=== PATIENT | female | born 1970 | race Caucasian/White ===

== ENCOUNTER 2016-08-05 15:00 | Inpatient (IN) ==
--- NOTE | 2016-08-05 15:11 | Emergency Department Note ---
Disposition Clinical Impression: CHF exacerbation Qualifiers: Congestive heart failure type: unspecified congestive heart failure type Qualified Code(s): I50.9 - Heart failure, unspecified Disposition: Admitted As Inpatient Condition: Fair Forms: ED Satisfaction Letter SOB HPI - General Chief Complaint: ED Shortness of Breath/Dyspnea Stated Complaint: rich Time Seen by Provider: 08/05/16 15:07 Source: patient Limitations: no limitations Nursing Notes Reviewed: Yes Vital Signs Reviewed: Yes - History of Present Illness Patient is here for evaluation of shortness of breath. The manager coding at [facility] called prior to the patient's arrival stating that she was on her way. Patient has a history of diastolic CHF and diabetes, patient is morbidly obese with multiple PEs and DVTs in the past. The patient is currently on IV Lasix 80 mg 3 times a day and metolazone 2 times per week. The patient was recently changed from 120 mg twice a day. medical assembler states that after our workup she is able to be admitted and treated our facility with the recommendation to revert to 120 mg of IV Lasix and metolazone. She was recently transferred and evaluated at [facility] last week for possible PE which was negative. Patient is currently on Xeralto and has a [place] filter in place. Patient describes shortness of breath started on Saturday and has been progressively worsen nature. Patient is not acutely short of breath sitting in bed however she becomes acutely short of breath when she exerts herself. Patient described does describe a left-sided sharp pain with exertion. She has had this multiple times in the past with her heart failure acting out. - Related Data Home Medications Medication Instructions Recorded Confirmed ALPRAZolam [Xanax 0.5 MG Tablet] 0.5 mg PO BID PRN 01/20/16 08/05/16 Aripiprazole [Abilify] 20 mg PO DAILY 01/20/16 08/05/16 Aspirin 81 mg PO HS 01/20/16 08/05/16 Carvedilol 12.5 mg PO Q12H 01/20/16 08/05/16 Docusate [Colace] 100 mg PO BID 01/20/16 08/05/16 Furosemide 80 mg IV TID 01/20/16 08/05/16 HYDROcodone/Acet 10/325 mg [[place] 1 tab PO Q6H PRN 01/20/16 08/05/16 10-325 mg] Metolazone [Zaroxolyn] 5 mg PO MOTH 01/20/16 08/05/16 Nitroglycerin [Nitrostat] 0.4 mg SL Q5M PRN 01/20/16 08/05/16 Nystatin POWDER [Nystop] 1 appl TP BID 01/20/16 08/05/16 OXcarbazepine [Oxcarbazepine] 600 mg PO BID 01/20/16 08/05/16 Ondansetron HCl 4 mg PO Q8H PRN 01/20/16 08/05/16 Polyethylene Glycol 3350 17 gm PO DAILY #0 01/20/16 08/05/16 [Smoothlax] Potassium Chloride [K-Tab ER] 20 meq PO BIDWM 01/20/16 08/05/16 Rivaroxaban [Xarelto] 20 mg PO QPM 01/20/16 08/05/16 hydrALAZINE [HydrALAZINE] 25 mg PO TID 01/20/16 08/05/16 Atorvastatin Calcium [Lipitor] 80 mg PO HS 08/05/16 08/05/16 Benztropine [Cogentin] 1 mg PO HS 08/05/16 08/05/16 Dicyclomine [Bentyl] 20 - 40 mg PO QID 08/05/16 08/05/16 Esomeprazole Magnesium [Nexium] 20 mg PO QAM 08/05/16 08/05/16 Exenatide Microspheres [Bydureon 2 mg SQ QWEEK 08/05/16 08/05/16 Pen] Ferrous Gluconate 324 mg PO DAILY 08/05/16 08/05/16 Guaifenesin [Mucinex] 600 mg PO BID 08/05/16 08/05/16 Insulin Regular U-500 [HumuLIN R 45 unit SQ QPM 08/05/16 08/05/16 U-500] Insulin Regular U-500 [HumuLIN R 70 unit SQ 1200 08/05/16 08/05/16 U-500] Insulin Regular U-500 [HumuLIN R 80 units SQ QAM 08/05/16 08/05/16 U-500] Isosorbide DInitrate [Isosorbide 20 mg PO TID 08/05/16 08/05/16 Dinitrate] Oxybutynin Chloride [Ditropan Xl] 15 mg PO DAILY 08/05/16 08/05/16 Spironolactone [Aldactone] 50 mg PO DAILY 08/05/16 08/05/16 Trazodone HCl 400 mg PO HS 08/05/16 08/05/16 Allergies Allergy/AdvReac Type Severity Reaction Status Date / Time Amoxicillin [From Augmentin] Allergy Hives Verified 06/21/16 14:38 clavulanic acid Allergy Hives Verified 06/21/16 14:38 [From Augmentin] codeine Allergy Swelling Verified 06/21/16 14:38 of Lip/Tongue/Throat levofloxacin [From Levaquin] Allergy Hives Verified 06/21/16 14:38 silver sulfadiazine Allergy Itching Verified 06/21/16 14:38 Sulfa (Sulfonamide Allergy Hives Verified 06/21/16 14:38 Antibiotics) tramadol [From Ultram] Allergy Swelling Verified 06/21/16 14:38 of Lip/Tongue/Throat All systems ED: reviewed and negative except as stated. 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 WATER WASTEWATER history: Reports: non-contributory - Social History Smoking Status: Never smoker Smokeless Tobacco Status: No Alcohol use: Reports: none Drug use: Reports: none Physical Exam - General Limitations: no limitations General appearance: alert, in no apparent distress - Head Head exam: atraumatic, normocephalic - Eye Eye exam: Present: normal appearance, PERRL - ENT ENT exam: normal exam - Neck Neck exam: Present: normal inspection - Chest Chest inspection: Present: normal inspection - Respiratory Respiratory exam: Absent: normal lung sounds bilaterally (Diminished bilaterally ), respiratory distress - Cardiovascular Cardiovascular exam: Present: regular rate, normal rhythm - Abdominal Exam Abdominal exam: Present: soft, Non-Tender - Extremities Exam Extremities exam: Present: other (Significantly swollen with chronic changes.) - Neurological Exam Neurological exam: Present: alert, oriented X3 - Psychiatric Psychiatric exam: Present: normal affect, normal mood Course - Reevaluation(s) Reevaluation #1: Patient continues to be in no acute distress while resting in the bed. - Consultations Consultation #1: Discussed with Dr. Doss. Patient accepted for admission for further diuresis. Vital Signs Temperature 97.4 F L 08/05/16 15:01 Pulse Rate 71 08/05/16 15:01 Respiratory Rate 22 08/05/16 15:01 Blood Pressure 129/67 08/05/16 15:01 O2 Sat by Pulse Oximetry 100 08/05/16 15:01 Temperature 97.4 F L 08/05/16 15:01 Pulse Rate 71 08/05/16 15:01 Respiratory Rate 22 08/05/16 15:01 Blood Pressure 129/67 08/05/16 15:01 O2 Sat by Pulse Oximetry 100 08/05/16 15:07 Oxygen Delivery Oxygen Delivery Nasal Cannula Shortness of Breath/Dyspnea - Medical Records Medical records reviewed: Yes I reviewed the patient's medical records. - Lab Data Lab results reviewed: Yes I reviewed the patient's lab results. Result diagrams: 08/05/16 15:45 08/05/16 15:45 Lab Results 08/05/16 08/05/16 08/05/16 Range/Units 15:45 15:45 15:45 WBC 10.0 (4.3-11.1) K/mcL RBC 3.71 L (3.82-4.97) M/mcL Hgb 8.8 L (11.5-15.4) g/dL Hct 29.9 L (35.3-44.9) % MCV 80.6 L (83.0-100.0) fL MCH 23.7 L (28.0-33.3) pg MCHC 29.4 L (31.6-35.5) g/dL RDW 17.6 H (11.5-14.5) % Plt Count 230 (140-400) K/mcL MPV 10.8 (9.4-12.4) fL Immature Gran % 0.3 (0-4) % Seg Neutrophils % 74.6 % Lymphocytes % 18.2 % Monocytes % 4.6 % Eosinophils % 2.0 % Basophils % 0.3 % Neutrophils # 7.5 (1.6-8.9) K/mcL Lymphocytes # 1.8 (0.6-4.6) K/mcL Monocytes # 0.5 (0.0-1.3) K/mcL Eosinophils # 0.2 (0.0-0.6) K/mcL Basophils # 0.0 (0.0-0.2) K/mcL Platelet Estimate Normal (Normal) Polychromasia 1+ A (Not Present) Hypochromasia Present A (Not Present) Sodium 141 (136-145) mEq/L Potassium 3.5 (3.5-4.5) mEq/L Chloride 93 L (98-109) mEq/L Carbon Dioxide 36 H (19-29) mEq/L BUN 25 H (7-20) mg/dL Creatinine 1.06 (0.57-1.11) mg/dL Est GFR ( Amer) > 60 (> 60) Est GFR (Non-Af Amer) 56 L (> 60) BUN/Creatinine Ratio 24 (6-26) Glucose 153 H (70-99) mg/dL Calculated Osmolality 299 (280-300) Calcium 9.0 (8.6-10.8) mg/dL Troponin I 0.00 (0-0.03) ng/mL B-Natriuretic Peptide (0-100) pg/mL 08/05/16 Range/Units 15:45 WBC (4.3-11.1) K/mcL RBC (3.82-4.97) M/mcL Hgb (11.5-15.4) g/dL Hct (35.3-44.9) % MCV (83.0-100.0) fL MCH (28.0-33.3) pg MCHC (31.6-35.5) g/dL RDW (11.5-14.5) % Plt Count (140-400) K/mcL MPV (9.4-12.4) fL Immature Gran % (0-4) % Seg Neutrophils % % Lymphocytes % % Monocytes % % Eosinophils % % Basophils % % Neutrophils # (1.6-8.9) K/mcL Lymphocytes # (0.6-4.6) K/mcL Monocytes # (0.0-1.3) K/mcL Eosinophils # (0.0-0.6) K/mcL Basophils # (0.0-0.2) K/mcL Platelet Estimate (Normal) Polychromasia (Not Present) Hypochromasia (Not Present) Sodium (136-145) mEq/L Potassium (3.5-4.5) mEq/L Chloride (98-109) mEq/L Carbon Dioxide (19-29) mEq/L BUN (7-20) mg/dL Creatinine (0.57-1.11) mg/dL Est GFR ( Amer) (> 60) Est GFR (Non-Af Amer) (> 60) BUN/Creatinine Ratio (6-26) Glucose (70-99) mg/dL Calculated Osmolality (280-300) Calcium (8.6-10.8) mg/dL Troponin I (0-0.03) ng/mL B-Natriuretic Peptide 125 H (0-100) pg/mL - Radiology Data Radiology results reviewed: Yes I reviewed the patient's radiology results. - EKG Data EKG attestation: Yes I reviewed and interpreted this EKG. EKG results narrative: EKG shows sinus rhythm with ventricular rate 70 bpm. CA interval 162. QRS 89. QTC 438. Patient has no significant ST elevations or depressions. Patient has nonspecific T-wave changes. EKG is consistent with previous EKG of 07/12/16.
--- NOTE | 2016-08-05 15:16 | Emergency Department Note ---
START Narrative - START START: I examined this patient and my medical decision-making was reviewed with the BARREL DEDENTING MACHINE OPERATOR/PA/Advanced Practice Nurse/Resident Physician. I agree with the documented findings, disposition and treatment plan as described except to the extent set forth below. ED attending note: Patient seen with emergency medicine resident Dr Fuentes. We independently evaluated the patient. We independently had [id number] contact with the patient. Please see a copy of his note for details of the history and physical, evaluation, management and disposition of this emergency Department patient. Briefly: A 45-year-old female by EMS from home for increasing shortness of breath and chest discomfort. Transferred about 2 weeks ago from [place] to the [facility] for rule out PE which was negative. She has a history of PEs breakthrough P's she is currently on swell so and has a [place] filter. She also has fairly significant congestive heart failure and she is on IV Lasix at home use to be 120 mg twice a day now 80 mg 3 times a day. Had a phone conversation with the plumbing designer who manages this patient through the heart failure clinic at the [facility]. They recommended after they spoke with the patient on the phone earlier today that this sounds like fluid retention and CHF exacerbation which probably prior IV Lasix dose at 120 mg twice daily. Patient has EKG which shows no acute ischemic changes screening labs and chest x-ray are pending with admission and anticipated an IV Lasix administration as well. Provided 40 minutes critical care services this patient disposition pending.
[2016-08-05 15:59] LABS: Immature Granulocytes % 0.3 % (0-4); Mean Corpuscular Volume 80.6 fL (83.0-100.0)
[2016-08-05 16:01] LABS: Basophils % 0.3 %; Eosinophils # 0.2 K/mcL (0.0-0.6); Hematocrit 29.9 % (35.3-44.9); Hemoglobin 8.8 g/dL (11.5-15.4); Lymphocytes # 1.8 K/mcL (0.6-4.6); Lymphocytes % 18.2 %; Mean Corpuscular HGB Conc 29.4 g/dL (31.6-35.5); Mean Corpuscular Hemoglobin 23.7 pg (28.0-33.3); Mean Platelet Volume 10.8 fL (9.4-12.4); Monocytes # 0.5 K/mcL (0.0-1.3); Monocytes % 4.6 %; Neutrophils # 7.5 K/mcL (1.6-8.9); Platelet Count 230 K/mcL (140-400); Red Blood Count 3.71 M/mcL (3.82-4.97); Red Cell Distribution Width 17.6 % (11.5-14.5); Segmented Neutrophils % 74.6 %
[2016-08-05 16:13] LABS: BUN/Creatinine Ratio 24 (6-26); Blood Urea Nitrogen 25 mg/dL (7-20); Carbon Dioxide 36 mEq/L (19-29); Chloride 93 mEq/L (98-109); Glucose 153 mg/dL (70-99); Osmolality,Calculated 299 (280-300); Potassium 3.5 mEq/L (3.5-4.5); Sodium 141 mEq/L (136-145); eGFR For African Americans > 60 (> 60); eGFR For Non-African Americans 56 (> 60)
[2016-08-05 16:27] LABS: Hypochromasia Present (Not Present); Platelet Estimate Normal (Normal); Polychromasia 1+ (Not Present)
[2016-08-05] MEDS ORDERED: Furosemide 20 MG/2 ML VIAL IVP ONE (16:58)
[2016-08-05] MEDS ORDERED: Naloxone 0.4 MG/ML INJ IVP PRN (18:20)
[2016-08-05] MEDS ORDERED: ALPRAZolam 0.5 MG TABLET PO PRN (18:34)
[2016-08-05] MEDS ORDERED: Nitroglycerin 0.4 MG TAB.SUBL SL PRN (18:39)
--- NOTE | 2016-08-05 19:00 | Internal Med History&Physical ---
Date of Encounter: 08/05/16 Time of Encounter: 17:00 Assessment and Plan (1) CHF exacerbation Current visit: Yes Status: Acute 1 patient has a history of diastolic heart failure she is being followed by cardiology at [facility]. She had recent change in medications Lasix decreased down to 80 mg 3 times a day. [facility] cardiology suggest increasing Lasix 120 mg twice a day and continuing the [place]. We will continue with recommendations diurese patient overnight 2 monitor intake and output 3 continue with [place] catheter patient has chronic catheter 4 1500 mL fluid restriction 5 sodium diet 6 continuous cardiac monitoring Qualifiers: Congestive heart failure type: diastolic Qualified Code(s): I50.33 - Acute on chronic diastolic (congestive) heart failure (2) HTN (hypertension) Current visit: No Status: Chronic 1 we will continue with home medications goal is to maintain systolic less than 140 2 low sodium diet Qualifiers: Hypertension type: essential hypertension Qualified Code(s): I10 - Essential (primary) hypertension (3) Personal history of DVT (deep vein thrombosis) Current visit: No Status: Chronic Xarelto, [place] filter (4) DVT prophylaxis Current visit: No Status: Acute 1 patient is on xarelto and has a faye filter (5) Diabetes mellitus type 1 Current visit: Yes Status: Chronic 1 Accu-Cheks before meals at bedtime will continue with Humulin R U 500 home dose 2 diabetic diet Qualifiers: Diabetes mellitus complication status: with kidney complications Diabetes mellitus complication detail: with chronic kidney disease Chronic kidney disease stage: stage 3 (moderate) Qualified Code(s): E10.22 - Type 1 diabetes mellitus with diabetic chronic kidney disease; N18.3 - Chronic kidney disease, stage 3 (moderate) Internal Medicine - H&P: HPI Chief complaint: SOB Admitted From: Emergency Dept Plans for Post Hospital Care: Home History of present illness: Ms. Hameed is a 45 year old female patient has extensive medical history including diastolic heart failure diabetes and morbid obesity multiple PEs and DVTs in the past patient is being followed at [facility] cardiology. she was recently transferred and evaluated at [facility] last week for possible PE which was negative patient is currently owns a relative and has a [place] filter in place. She was discharged on the at that time her Lasix was decreased down to 80mg 3 times a day day from 120 IV Lasix twice a day. On Wednesday she began to experience shortness of breath which worsens with exertion as well as left- sided sharp pain. This continued throughout the week as well as a cough and edema. She did notify her chemical equipment repairer at [facility] who advised her if symptoms continued, to report to the ER . Her symptoms continued she notify her chemical equipment repairer who advised her to go to the ER. According to ED records manager foreign at [facility] speak with ER physician and stated patient is able to be managed at our facility and recommends 120 IV Lasix twice a day and continue metolazone. Chest x-ray did show some cardiomegaly and mild pulmonary vascular congestion. Lab work was unremarkable she was admitted for further diuresis. Presently patient denies any chest pain or shortness of breath she does not appear to be respiratory distress. Her lung sounds are diminished throughout heart sounds S1-S2 regular with no clicks rubs gallops or murmurs noted. She is morbidly obese however she does have some dependent edema located in her back as well as her lower extremities. She is hemodynamically stable this time IV this case with Dr. Doss who agrees with plan. Past Med Surg Social Fam HX - Past Medical History Medical history: asthma, CHF, COPD, DVT, diabetes, hyperlipidemia, hypertension , peripheral artery disease, pulmonary embolus, renal disease, other Psychiatric history: anxiety, bipolar, depression - Past Surgical History Surgical History: cholecystectomy, other - Social History Smoking Status: Never smoker Smokeless Tobacco Status: No Alcohol use: none Drug use: none - Family History Mother Living Status: Hx Family Cardiac Disorders: Yes Hx Family Endocrine Disorder: Yes Father Living Status: Still Living Hx Family Cardiac Disorders: Yes Hx Family Endocrine Disorder: Yes (DM 2) Internal Medicine - H&P: Meds ALPRAZolam [Xanax 0.5 MG Tablet] 0.5 mg PO BID PRN 01/20/16 [History] Aripiprazole [Abilify] 20 mg PO DAILY 01/20/16 [History] Aspirin 81 mg PO HS 01/20/16 [History] Carvedilol 12.5 mg PO Q12H 01/20/16 [History] Docusate [Colace] 100 mg PO BID 01/20/16 [History] Furosemide 80 mg IV TID 01/20/16 [History] HYDROcodone/Acet 10/325 mg [[place] 10-325 mg] 1 tab PO Q6H PRN 01/20/16 [History] Metolazone [Zaroxolyn] 5 mg PO MOTH 01/20/16 [History] Nitroglycerin [Nitrostat] 0.4 mg SL Q5M PRN 01/20/16 [History] Nystatin POWDER [Nystop] 1 appl TP BID 01/20/16 [History] OXcarbazepine [Oxcarbazepine] 600 mg PO BID 01/20/16 [History] Ondansetron HCl 4 mg PO Q8H PRN 01/20/16 [History] Polyethylene Glycol 3350 [Smoothlax] 17 gm PO DAILY #0 01/20/16 [History] Potassium Chloride [K-Tab ER] 20 meq PO BIDWM 01/20/16 [History] Rivaroxaban [Xarelto] 20 mg PO QPM 01/20/16 [History] hydrALAZINE [HydrALAZINE] 25 mg PO TID 01/20/16 [History] Atorvastatin Calcium [Lipitor] 80 mg PO HS 08/05/16 [History] Benztropine [Cogentin] 1 mg PO HS 08/05/16 [History] Dicyclomine [Bentyl] 20 - 40 mg PO QID 08/05/16 [History] Esomeprazole Magnesium [Nexium] 20 mg PO QAM 08/05/16 [History] Exenatide Microspheres [Bydureon Pen] 2 mg SQ QWEEK 08/05/16 [History] Ferrous Gluconate 324 mg PO DAILY 08/05/16 [History] Guaifenesin [Mucinex] 600 mg PO BID 08/05/16 [History] Insulin Regular U-500 [HumuLIN R U-500] 45 unit SQ QPM 08/05/16 [History] Insulin Regular U-500 [HumuLIN R U-500] 70 unit SQ 1200 08/05/16 [History] Insulin Regular U-500 [HumuLIN R U-500] 80 units SQ QAM 08/05/16 [History] Isosorbide DInitrate [Isosorbide Dinitrate] 20 mg PO TID 08/05/16 [History] Oxybutynin Chloride [Ditropan Xl] 15 mg PO DAILY 08/05/16 [History] Spironolactone [Aldactone] 50 mg PO DAILY 08/05/16 [History] Trazodone HCl 400 mg PO HS 08/05/16 [History] Allergies Amoxicillin [From Augmentin] Allergy (Verified 06/21/16 14:38) Hives clavulanic acid [From Augmentin] Allergy (Verified 06/21/16 14:38) Hives codeine Allergy (Verified 06/21/16 14:38) Swelling of Lip/Tongue/Throat levofloxacin [From Levaquin] Allergy (Verified 06/21/16 14:38) Hives silver sulfadiazine Allergy (Verified 06/21/16 14:38) Itching Sulfa (Sulfonamide Antibiotics) Allergy (Verified 06/21/16 14:38) Hives tramadol [From Ultram] Allergy (Verified 06/21/16 14:38) Swelling of Lip/Tongue/Throat All Systems PM: A 10-system review of systems was performed and is negative for pertinent findings except as documented above in the HPI. - Constitutional Constitutional: no chills, no fever(s), no night sweats - EENT Eyes: no change in vision, no discharge, no pain, no photophobia - Cardiovascular Cardiovascular ROS IM: chest pain, dyspnea, dyspnea on exertion, edema - Respiratory Respiratory: cough, dyspnea on exertion, no dyspnea, no wheezing, no excessive phlegm production - Gastrointestinal Gastrointestinal: no abdominal pain, no diarrhea, no hematemesis, no hematochezia, no melena, no nausea, no vomiting - Genitourinary Genitourinary: no change in urinary stream, no dysuria, no flank pain, no hematuria - Musculoskeletal Musculoskeletal ROS IM: no numbness, no tingling - Integumentary Integumentary IM: no rash, no unusual bruising - Neurological Neurological ROS: no confusion, no convulsions, no focal weakness, no numbness, no tingling, no tremor(s) - Constitutional Vitals: Temp Pulse Resp BP Pulse Ox 97.4 F L 89 20 126/80 100 08/05/16 15:01 08/05/16 17:22 08/05/16 17:46 08/05/16 17:46 08/05/16 17:22 General appearance: Present: A&O X 3, morbidly obese - Head Head exam: Present: atraumatic, normocephalic - Eye Eye exam: Present: PERRL, conjuntiva pink, sclera anicteric Pupils: Present: PERRL - Neck Neck exam general surgery: Present: supple, trachea midline. Absent: lymphadenopathy - Respiratory Respiratory exam: Present: decreased breath sounds, CTAB. Absent: accessory muscle use, rales, rhonchi, wheezes - Cardiovascular Cardiovascular exam: Present: RRR, +S1, +S2. Absent: diastolic murmur, gallop, rubs, systolic murmur - GI/Abdominal GI/Abdominal exam: Present: normal bowel sounds, soft, no peritoneal signs. Absent: distended, tenderness - Extremities Exam Extremities exam: Present: pedal edema, warm, radial pulses palpable and symetrical. Absent: calf tenderness, cyanotic - Neurological Exam Neurological exam: Present: CN II-XII intact, oriented X3, no focal deficits. Absent: pronater drift, facial droop, speech deficit - Skin Skin exam: Present: dry, intact Internal Med - H&P Results - Labs CBC & Chem 7: 08/05/16 15:45 08/05/16 15:45 - EKG Data EKG shows normal: sinus rhythm - EKG Data Prior EKG available for review: yes When compared to previous EKG: there are significant changes - Diagnostic Studies Chest x-ray Additional comments: Chest X-Ray 08/05/16 15:07 IMPRESSION: Cardiomegaly with mild venous congestion. D/ / Barry Taveras MD / Barry Taveras MD Interpreting Provider: Barry Taveras MD
[2016-08-05] MEDS: Aspirin 81 MG TAB.CHEW PO SCH (21:37)
[2016-08-05] MEDS: hydrALAZINE 25 MG TABLET PO SCH (21:37)
[2016-08-05] MEDS: OXcarbazepine 150 MG TABLET PO SCH (21:38)
[2016-08-05] MEDS: traZODone 50 MG TABLET PO SCH (23:05)
[2016-08-05] MEDS: *HR* HYDROcodone/Acet 10/325 mg TABLET PO PRN (23:12)
[2016-08-06 03:50] LABS: Calcium 8.8 mg/dL (8.6-10.8); Magnesium 1.8 mg/dL (1.6-2.6); Potassium 3.5 mEq/L (3.5-4.5)
[2016-08-06] MEDS: *HR* Insulin Regular U-500 500 UNIT/ML SQ SCH ×3 (08:34→17:06)
[2016-08-06] MEDS: hydrALAZINE 25 MG TABLET PO SCH ×3 (08:36→22:04)
[2016-08-06] MEDS: OXcarbazepine 150 MG TABLET PO SCH ×2 (08:36→22:06)
[2016-08-06] MEDS: ARIPiprazole 10 MG TABLET PO SCH (08:36)
[2016-08-06] MEDS: Furosemide 120 MG in 0.9 % Sodium Chloride 50 ML IVPB SCH ×2 (08:43→22:03)
--- NOTE | 2016-08-06 13:38 | Internal Med Progress Note ---
<Gualberto Ramesh - Last Filed: 08/06/16 14:14> Date of Encounter: 08/06/16 Time of Encounter: 10:00 - Assessment and plan (1) CHF exacerbation Current Visit: Yes Status: Acute Assessment and plan: - Known history of diastolic heart failure seeing cardiology at [facility]. - Likely precipitated by recent Lasix regimen change. - Per ED note, case was discussed with [facility] cardiology who thinks patient is able to be managed at our facility with recommendation of Lasix 120 mg IV BID and metolazone. - Clinically improves as patient reports breathing better since admission. - Continue Lasix 120 mg IV BID and metolazone. - Low salt diet and 1.5 L fluid restriction. - Strict I/O and daily weight. - Monitor closely with telemetry. - Possible discharge tomorrow if patient's respiratory status continues to improve. Qualifiers: Congestive heart failure type: diastolic Qualified Code(s): I50.33 - Acute on chronic diastolic (congestive) heart failure (2) Skin lesions Current Visit: Yes Status: Acute Assessment and plan: - Multiple skin tags, some containing fluid, are noted mostly on thighs. - Patient reports history of lower extremity cellulitis. - It does not appear to be infected on physical exam. - Will consult wound care. (3) HTN (hypertension) Current Visit: No Status: Chronic Assessment and plan: - BP within normal range this morning. - Continue current antihypertensive regimen. Qualifiers: Hypertension type: essential hypertension Qualified Code(s): I10 - Essential (primary) hypertension (4) Diabetes mellitus type 1 Current Visit: Yes Status: Chronic Assessment and plan: - Continue home regimen of insulin with routine glucose checks. - Diabetic diet. Qualifiers: Diabetes mellitus complication status: with kidney complications Diabetes mellitus complication detail: with chronic kidney disease Chronic kidney disease stage: stage 3 (moderate) Qualified Code(s): E10.22 - Type 1 diabetes mellitus with diabetic chronic kidney disease; N18.3 - Chronic kidney disease, stage 3 (moderate) (5) Personal history of DVT (deep vein thrombosis) Current Visit: No Status: Chronic Assessment and plan: - With [place] filter in place. - Continue Xarelto. (6) DVT prophylaxis Current Visit: No Status: Acute Assessment and plan: - Continue Xarelto. - Subjective Interval history: No significant even noted overnight. Patient was seen and examined this morning. Patient reports breathing and cough better compared to yesterday but it 's not back to her baseline yet. Patient also has some nausea but denies vomiting, chest pain, diarrhea, abdominal pain. Patient cannot tell if her bilateral lower extremity swelling improves as she is not able to see her legs due to her body habitus. - Constitutional Vitals: Temp Pulse Resp BP Pulse Ox 97.6 F 72 18 131/85 100 08/06/16 07:00 08/06/16 07:00 08/06/16 07:00 08/06/16 07:00 08/06/16 07:00 General appearance: Present: cooperative, A&O X 3, morbidly obese, no acute distress, answers questions appropriately - Head Head exam: Present: atraumatic, normocephalic - Eye Eye exam: Present: EOMI, PERRL, conjuntiva pink, sclera anicteric - Neck Neck exam general surgery: Present: supple, trachea midline. Absent: lymphadenopathy - Respiratory Respiratory exam: Present: decreased breath sounds. Absent: accessory muscle use, rales, rhonchi, wheezes - Cardiovascular Cardiovascular exam: Present: RRR, +S1, +S2. Absent: diastolic murmur, gallop, rubs, systolic murmur - GI/Abdominal GI/Abdominal exam: Present: normal bowel sounds, soft, no peritoneal signs. Absent: distended, tenderness - Extremities Exam Extremities exam: Present: warm, radial pulses palpable and symetrical. Absent : calf tenderness, cyanotic Additional comments: Significant bilateral lower extremity edema, likely chronic with thickening of skin and possible venous insufficiency appearance. Also noted to have diffuse multiple skin tags, mostly on bilateral thighs. - Neurological Exam Neurological exam: Present: CN II-XII intact, oriented X3, no focal deficits. Absent: pronater drift, facial droop, speech deficit - Skin Skin exam: Present: dry, intact, warm Internal Medicine: Result - Labs CBC & Chem 7: 08/05/16 15:45 08/06/16 03:28 Labs: BMP 08/06/16 03:28 Sodium 141 Potassium 3.5 Chloride 94 L Carbon Dioxide 39 H BUN 25 H Creatinine 1.20 H Glucose 334 H Calcium 8.8 Cardiac Enzymes 08/05/16 08/06/16 Range/Units 21:15 03:28 Troponin I 0.00 0.00 (0-0.03) ng/mL Consult Discharge Plan - Plan Referrals: NO,PCP [Primary Care Provider] - <Serge To - Last Filed: 08/06/16 17:08> Date of Encounter: 08/06/16 - Assessment and plan (1) CHF exacerbation Current Visit: Yes Status: Acute Qualifiers: Congestive heart failure type: diastolic Qualified Code(s): I50.33 - Acute on chronic diastolic (congestive) heart failure (2) Personal history of DVT (deep vein thrombosis) Current Visit: No Status: Chronic (3) Skin lesions Current Visit: Yes Status: Acute (4) Diabetes mellitus type 1 Current Visit: Yes Status: Chronic Qualifiers: Diabetes mellitus complication status: with kidney complications Diabetes mellitus complication detail: with chronic kidney disease Chronic kidney disease stage: stage 3 (moderate) Qualified Code(s): E10.22 - Type 1 diabetes mellitus with diabetic chronic kidney disease; N18.3 - Chronic kidney disease, stage 3 (moderate) (5) Acquired lymphedema of lower extremity Current Visit: Yes Status: Chronic (6) Morbid obesity with BMI of 60.0-69.9, adult Current Visit: Yes Status: Acute - Constitutional Vitals: Temp Pulse Resp BP Pulse Ox 97.6 F 79 15 145/98 98 08/06/16 07:00 08/06/16 15:00 08/06/16 15:00 08/06/16 15:00 08/06/16 15:00 Internal Medicine: Result - Labs CBC & Chem 7: 08/05/16 15:45 08/06/16 03:28 - Attending Attestation I examined this patient and my medical decision-making was reviewed with the Resident Physician on 08/06/16. I agree with the documented findings, disposition and treatment plan as described except to the extent set forth below. Ms. Hameed is currently admitted for acute exac chronic CHF. She is moderate to high risk due to potential for worsening resp and cardiac status. Ms. Hameed feels OK. She has diuresed some and is beginning to feel better. No CP. No fever or chills. No Gi symptoms. Exam Alert. Comfortable Obese Heart distant Lungs diminished I/P 1. CHF 2. Morbid obesity Further diagnoses and plan as above.
--- NOTE | 2016-08-06 17:04 | Electrocardiograph Report ---
[address] [address] Test Date: 2016-08-05 Pat Name: Mariya Hameed Department: 105 Room: 2NE31 Gender: F Pcmh Specialist: JENNIFER : 1970 Requested By: Hi Fuentes Order Number: [id number] Reading MD: Triston Eduardo Measurements Intervals [place] Rate: 70 P: 58 OR: 162 QRS: 16 QRSD: 89 T: 50 QT: 417 QTc: 438 Interpretive Statements SINUS RHYTHM LOW QRS VOLTAGE IN PRECORDIAL LEADS [QRS DEFLECTION < 1.0 mV IN CHEST LEADS] Electronically Signed On 08-06-2016 17:02:25 EDT by Triston Eduardo
[2016-08-06] MEDS: *HR* Rivaroxaban 10 MG TABLET PO SCH (17:05)
[2016-08-06] MEDS ORDERED: metOLazone 5 MG TABLET PO SCH (18:39)
[2016-08-06] MEDS: Aspirin 81 MG TAB.CHEW PO SCH (22:04)
[2016-08-06] MEDS: traZODone 50 MG TABLET PO SCH (22:05)
[2016-08-06] MEDS: Ondansetron ODT 4 MG TAB.RAPDIS PO PRN (22:44)
[2016-08-07 05:56] LABS: Eosinophils % 2.2 %; Lymphocytes % 22.7 %
[2016-08-07 05:57] LABS: Basophils % 0.4 %; Eosinophils # 0.2 K/mcL (0.0-0.6); Hemoglobin 8.4 g/dL (11.5-15.4); Immature Granulocytes % 0.3 % (0-4); Lymphocytes # 2.2 K/mcL (0.6-4.6); Mean Corpuscular Hemoglobin 23.6 pg (28.0-33.3); Mean Corpuscular Volume 81.5 fL (83.0-100.0); Mean Platelet Volume 11.5 fL (9.4-12.4); Monocytes # 0.5 K/mcL (0.0-1.3); Monocytes % 4.9 %; Platelet Count 241 K/mcL (140-400); Red Blood Count 3.56 M/mcL (3.82-4.97); Red Cell Distribution Width 17.2 % (11.5-14.5); Segmented Neutrophils % 69.5 %
[2016-08-07 05:58] LABS: Neutrophils # 6.7 K/mcL (1.6-8.9)
[2016-08-07 06:12] LABS: BUN/Creatinine Ratio 26 (6-26); Blood Urea Nitrogen 26 mg/dL (7-20); Calcium 9.1 mg/dL (8.6-10.8); Carbon Dioxide 39 mEq/L (19-29); Chloride 94 mEq/L (98-109); Glucose 82 mg/dL (70-99); Osmolality,Calculated 300 (280-300); Potassium 3.5 mEq/L (3.5-4.5); Sodium 143 mEq/L (136-145); eGFR For African Americans > 60 (> 60); eGFR For Non-African Americans 60 (> 60)
[2016-08-07 06:20] LABS: Platelet Estimate Normal (Normal)
[2016-08-07 06:21] LABS: Anisocytosis 2+ (Not Present); Hypochromasia Present (Not Present)
[2016-08-07] MEDS: *HR* Insulin Regular U-500 500 UNIT/ML SQ SCH ×3 (09:03→16:54)
[2016-08-07] MEDS: OXcarbazepine 150 MG TABLET PO SCH ×2 (09:17→19:57)
[2016-08-07] MEDS: ARIPiprazole 10 MG TABLET PO SCH (09:17)
[2016-08-07] MEDS: hydrALAZINE 25 MG TABLET PO SCH ×3 (09:19→19:58)
[2016-08-07] MEDS: Furosemide 120 MG in 0.9 % Sodium Chloride 50 ML IVPB SCH ×2 (09:51→19:56)
--- NOTE | 2016-08-07 14:39 | Internal Med Progress Note ---
<Gualberto Ramesh - Last Filed: 08/07/16 16:41> Date of Encounter: 08/07/16 Time of Encounter: 11:00 - Assessment and plan (1) CHF exacerbation Current Visit: Yes Status: Acute Assessment and plan: - Known history of diastolic heart failure seeing cardiology at [facility]. - Likely precipitated by recent Lasix regimen change. - Per ED note, case was discussed with [facility] cardiology who thinks patient is able to be managed at our facility with recommendation of Lasix 120 mg IV BID and metolazone. - Clinically improves as patient reports breathing better since admission. Negative 4 L so far since admission. - Continue Lasix 120 mg IV BID and metolazone. - Low salt diet and 1.5 L fluid restriction. - Strict I/O and daily weight. - Monitor closely with telemetry. Qualifiers: Congestive heart failure type: diastolic Qualified Code(s): I50.33 - Acute on chronic diastolic (congestive) heart failure (2) Skin lesions Current Visit: Yes Status: Acute Assessment and plan: - Multiple skin tags, some containing fluid, are noted throughout bilateral lower extremities, mostly on thighs. - Patient reports history of lower extremity cellulitis. - It does not appear to be infected on physical exam. - Wound care consulted. (3) HTN (hypertension) Current Visit: No Status: Chronic Assessment and plan: - BP within normal range this morning. - Continue current antihypertensive regimen. Qualifiers: Hypertension type: essential hypertension Qualified Code(s): I10 - Essential (primary) hypertension (4) Diabetes mellitus type 1 Current Visit: Yes Status: Chronic Assessment and plan: - Continue home regimen of insulin with routine glucose checks. - Diabetic diet. Qualifiers: Diabetes mellitus complication status: with kidney complications Diabetes mellitus complication detail: with chronic kidney disease Chronic kidney disease stage: stage 3 (moderate) Qualified Code(s): E10.22 - Type 1 diabetes mellitus with diabetic chronic kidney disease; N18.3 - Chronic kidney disease, stage 3 (moderate) (5) Personal history of DVT (deep vein thrombosis) Current Visit: No Status: Chronic Assessment and plan: - With [place] filter in place. - Continue Xarelto. (6) Morbid obesity with BMI of 60.0-69.9, adult Current Visit: Yes Status: Acute (7) DVT prophylaxis Current Visit: No Status: Acute Assessment and plan: - Continue Xarelto. - Subjective Interval history: No significant even noted overnight. Patient was seen and examined this morning. Patient reports breathing better compared to yesterday but it's still not back to her baseline yet. Patient also has some nausea but denies vomiting, chest pain, diarrhea, abdominal pain. Patient stated that her senior manager mmcoe Dr. Jake Elizalde at [facility] called her and told her she should be transferred to [facility]. Patient said yes when I asked if she wants to transfer. I called [facility] transfer center. The nurse there discussed the case with Dr. Elizalde who thinks patient can continue her treatment here as long as she is improving clinically. The nurse also informed me that they have no bed available at this time. I updated patient about these and she agreed to stay. - Constitutional Vitals: Temp Pulse Resp BP Pulse Ox 98.1 F 83 16 148/77 98 08/07/16 11:46 08/07/16 11:46 08/07/16 11:46 08/07/16 11:46 08/07/16 11:46 General appearance: Present: A&O X 3, morbidly obese, no acute distress - Head Head exam: Present: atraumatic, normocephalic - Eye Eye exam: Present: EOMI, PERRL, conjuntiva pink, sclera anicteric - Neck Neck exam general surgery: Present: supple, trachea midline. Absent: lymphadenopathy - Respiratory Respiratory exam: Present: decreased breath sounds. Absent: accessory muscle use, rales, rhonchi, wheezes - Cardiovascular Cardiovascular exam: Present: RRR, +S1, +S2. Absent: diastolic murmur, gallop, rubs, systolic murmur - GI/Abdominal GI/Abdominal exam: Present: normal bowel sounds, soft, no peritoneal signs. Absent: tenderness - Extremities Exam Extremities exam: Present: warm, radial pulses palpable and symetrical. Absent : cyanotic Additional comments: Significant bilateral lower extremity edema, likely chronic with thickening of skin and possible venous insufficiency appearance. Also noted to have diffuse multiple skin tags, mostly on bilateral thighs. - Neurological Exam Neurological exam: Present: CN II-XII intact, oriented X3, no focal deficits. Absent: pronater drift, facial droop, speech deficit - Skin Skin exam: Present: dry, intact, warm Internal Medicine: Result - Labs CBC & Chem 7: 08/07/16 05:30 08/07/16 05:30 Labs: Short CBC 08/07/16 Range/Units 05:30 WBC 9.7 (4.3-11.1) K/mcL Hgb 8.4 L (11.5-15.4) g/dL Hct 29.0 L (35.3-44.9) % Plt Count 241 (140-400) K/mcL Neutrophils # 6.7 (1.6-8.9) K/mcL [facility] 08/07/16 05:30 Sodium 143 Potassium 3.5 Chloride 94 L Carbon Dioxide 39 H BUN 26 H Creatinine 1.01 Glucose 82 Calcium 9.1 Consult Discharge Plan - Plan Referrals: NO,PCP [Primary Care Provider] - <Parth Wilson - Last Filed: 08/07/16 18:24> Date of Encounter: 08/07/16 - Constitutional Vitals: Temp Pulse Resp BP Pulse Ox 98.6 F 74 16 126/80 99 08/07/16 15:42 08/07/16 15:42 08/07/16 15:42 08/07/16 15:42 08/07/16 15:42 Internal Medicine: Result - Labs CBC & Chem 7: 08/07/16 05:30 08/07/16 05:30 Labs: Short CBC 08/07/16 Range/Units 05:30 WBC 9.7 (4.3-11.1) K/mcL Hgb 8.4 L (11.5-15.4) g/dL Hct 29.0 L (35.3-44.9) % Plt Count 241 (140-400) K/mcL Neutrophils # 6.7 (1.6-8.9) K/mcL [facility] 08/07/16 05:30 Sodium 143 Potassium 3.5 Chloride 94 L Carbon Dioxide 39 H BUN 26 H Creatinine 1.01 Glucose 82 Calcium 9.1 - Attending Attestation I examined this patient and my medical decision-making was reviewed with the [employer] CONCRETE PRODUCTS INSTALLER/PA/Advanced Practice Nurse/Resident Physician. I agree with the documented findings, disposition and treatment plan as described except to the extent set forth below.
[2016-08-07] MEDS: *HR* Rivaroxaban 10 MG TABLET PO SCH (16:56)
[2016-08-07] MEDS: Aspirin 81 MG TAB.CHEW PO SCH (19:57)
[2016-08-07] MEDS: Nystatin POWDER 30 GM BOTTLE TP SCH (19:58)
[2016-08-07] MEDS: *HR* HYDROcodone/Acet 10/325 mg TABLET PO PRN (20:02)
[2016-08-07] MEDS: traZODone 50 MG TABLET PO SCH (23:00)
[2016-08-08 04:29] LABS: BUN/Creatinine Ratio 27 (6-26); Blood Urea Nitrogen 29 mg/dL (7-20); Calcium 9.1 mg/dL (8.6-10.8); Chloride 90 mEq/L (98-109); Glucose 80 mg/dL (70-99); Osmolality,Calculated 297 (280-300); Potassium 3.2 mEq/L (3.5-4.5); Sodium 141 mEq/L (136-145); eGFR For African Americans > 60 (> 60); eGFR For Non-African Americans 56 (> 60)
[2016-08-08 04:30] LABS: Carbon Dioxide 43 mEq/L (19-29)
[2016-08-08 07:19] VITALS: BP 133/76
[2016-08-08 08:44] LABS: Magnesium 1.6 mg/dL (1.6-2.6)
[2016-08-08] MEDS: Furosemide 120 MG in 0.9 % Sodium Chloride 50 ML IVPB SCH (09:45)
[2016-08-08] MEDS: *HR* Insulin Regular U-500 500 UNIT/ML SQ SCH ×3 (09:45→16:18)
[2016-08-08] MEDS: OXcarbazepine 150 MG TABLET PO SCH (09:46)
[2016-08-08] MEDS: ARIPiprazole 10 MG TABLET PO SCH (09:46)
[2016-08-08] MEDS: hydrALAZINE 25 MG TABLET PO SCH ×2 (09:48→16:19)
[2016-08-08] MEDS: Nystatin POWDER 30 GM BOTTLE TP SCH (09:49)
--- NOTE | 2016-08-08 11:30 | Discharge Summary ---
<Gualberto Ramesh - Last Filed: 08/08/16 18:49> Date of Encounter: 08/08/16 Time of Encounter: 10:00 - Discharge Diagnosis (1) CHF exacerbation Priority: Primary Status: Acute Qualifiers: Congestive heart failure type: diastolic Qualified Code(s): I50.33 - Acute on chronic diastolic (congestive) heart failure (2) Skin lesions Priority: Secondary Status: Acute (3) HTN (hypertension) Priority: Secondary Status: Chronic Qualifiers: Hypertension type: essential hypertension Qualified Code(s): I10 - Essential (primary) hypertension (4) Diabetes mellitus type 1 Priority: Secondary Status: Chronic Qualifiers: Diabetes mellitus complication status: with kidney complications Diabetes mellitus complication detail: with chronic kidney disease Chronic kidney disease stage: stage 3 (moderate) Qualified Code(s): E10.22 - Type 1 diabetes mellitus with diabetic chronic kidney disease; N18.3 - Chronic kidney disease, stage 3 (moderate) (5) Personal history of DVT (deep vein thrombosis) Priority: Secondary Status: Chronic (6) Morbid obesity with BMI of 60.0-69.9, adult Priority: Secondary Status: Acute - Discharge Medications Home Medications: ALPRAZolam [Xanax 0.5 MG Tablet] 0.5 mg PO BID PRN 01/20/16 [History] Aripiprazole [Abilify] 20 mg PO DAILY 01/20/16 [History] Aspirin 81 mg PO HS 01/20/16 [History] Carvedilol 12.5 mg PO Q12H 01/20/16 [History] Docusate [Colace] 100 mg PO BID 01/20/16 [History] Furosemide 80 mg IV TID 01/20/16 [History] HYDROcodone/Acet 10/325 mg [Glen 10-325 mg] 1 tab PO Q6H PRN 01/20/16 [History] Metolazone [Zaroxolyn] 5 mg PO MOTH 01/20/16 [History] Nitroglycerin [Nitrostat] 0.4 mg SL Q5M PRN 01/20/16 [History] Nystatin POWDER [Nystop] 1 appl TP BID 01/20/16 [History] OXcarbazepine [Oxcarbazepine] 600 mg PO BID 01/20/16 [History] Ondansetron HCl 4 mg PO Q8H PRN 01/20/16 [History] Polyethylene Glycol 3350 [Smoothlax] 17 gm PO DAILY #0 01/20/16 [History] Potassium Chloride [K-Tab ER] 20 meq PO BIDWM 01/20/16 [History] Rivaroxaban [Xarelto] 20 mg PO QPM 01/20/16 [History] hydrALAZINE [HydrALAZINE] 25 mg PO TID 01/20/16 [History] Atorvastatin Calcium [Lipitor] 80 mg PO HS 08/05/16 [History] Benztropine [Cogentin] 1 mg PO HS 08/05/16 [History] Dicyclomine [Bentyl] 20 - 40 mg PO QID 08/05/16 [History] Esomeprazole Magnesium [Nexium] 20 mg PO QAM 08/05/16 [History] Exenatide Microspheres [Bydureon Pen] 2 mg SQ QWEEK 08/05/16 [History] Ferrous Gluconate 324 mg PO DAILY 08/05/16 [History] Guaifenesin [Mucinex] 600 mg PO BID 08/05/16 [History] Insulin Regular U-500 [HumuLIN R U-500] 45 unit SQ QPM 08/05/16 [History] Insulin Regular U-500 [HumuLIN R U-500] 70 unit SQ 1200 08/05/16 [History] Insulin Regular U-500 [HumuLIN R U-500] 80 units SQ QAM 08/05/16 [History] Isosorbide DInitrate [Isosorbide Dinitrate] 20 mg PO TID 08/05/16 [History] Oxybutynin Chloride [Ditropan Xl] 15 mg PO DAILY 08/05/16 [History] Spironolactone [Aldactone] 50 mg PO DAILY 08/05/16 [History] Trazodone HCl 400 mg PO HS 08/05/16 [History] Allergies/Adverse Reactions: Allergies adhesive tape Allergy (Mild, Verified 08/05/16 20:56) skin irritation Reports allergy to paper tape. Reports skin irriation. Amoxicillin [From Augmentin] Allergy (Verified 06/21/16 14:38) Hives clavulanic acid [From Augmentin] Allergy (Verified 06/21/16 14:38) Hives codeine Allergy (Verified 06/21/16 14:38) Swelling of Lip/Tongue/Throat levofloxacin [From Levaquin] Allergy (Verified 06/21/16 14:38) Hives silver sulfadiazine Allergy (Verified 06/21/16 14:38) Itching Sulfa (Sulfonamide Antibiotics) Allergy (Verified 06/21/16 14:38) Hives tramadol [From Ultram] Allergy (Verified 06/21/16 14:38) Swelling of Lip/Tongue/Throat Date of admission: 08/06/16 16:19 Primary care physician: PCP NO Discharging clinician: Gualberto Ramesh Anticipated date of discharge: 08/08/16 - Patient Status Disposition: Home Health Service Condition: Fair Functional capacity at discharge: uses cane/walker Overall status at discharge: patient is progressing back to baseline - Discharge Instructions Instructions: Heart Failure (DC), Sleep Apnea Syndrome (DC), Sleep Apnea Syndrome (GEN), Urinary Tract Infection in Women (DC), Dewitt Catheter Placement and Care (DC), Dewitt Catheter Placement and Care (GEN), Diabetes Mellitus Type 2 in Adults (DC), Using Oxygen at Home (DC), Using Oxygen at Home (GEN), Chronic Hypertension (DC), Chronic Urinary Retention in Women (DC), Sleep Apnea Syndrome, Registered Account Administrator (GEN) Follow Up With: Linsey Ca MD [Non-Partnered Physician] - 08/21/16 NO,PCP [Primary Care Provider] - (Follow up with PCP within a week.) Additional Instructions: Please continue your home IV Lasix regiment after discharge. Please continue low-salt diet and fluid restriction of 1.5 L. Please follow up with your primary care provider within a week regarding your hospitalization. Please follow up with your principal gifts officer at [facility] regarding your congestive heart failure. Please come back to emergency room if you develop significant worsening of breathing. - Diet and Activity Activity: increase activity as tolerated Diet: diabetic diet, low fat, low cholesterol, low salt diet, other (Fluid restriction of 1.5 L) Hospital course: Ms. Hameed is a 45 year old female with PMH of diastolic CHF seeing Dr. Jake Elizalde of [facility] cardiology presented with complaint of worsening shortness of breath, cough and bilateral lower extremity swelling. Patient recalls recent Lasix regimen change from Lasix 120 mg IV BID to 80 mg IV TID. ED physician discussed the case with [facility] principal gifts officer who recommends resuming Lasix 120 mg IV BID regimen and managed here. Patient was admitted on 08/05 for CHF exacerbation management. Patients respiratory status continues to improve with 8L removed since admission. Given patient clinically improves and remains hemodynamically stable, okay to discharge patient home with her home IV Lasix regimen. Patient is instructed to follow up with her principal gifts officer and PCP within a week. Patient is also instructed to come back to ED if developing significant shortness of breath. - Time Spent with Patient Total time spent providing and/or coordinating discharge services: Greater than 30 minutes - Constitutional Vitals: Temp Pulse Resp BP Pulse Ox 98.7 F 96 18 133/76 98 08/08/16 07:07 08/08/16 07:07 08/08/16 07:07 08/08/16 07:07 08/08/16 08:00 General appearance: Present: A&O X 3, morbidly obese, no acute distress <Parth Wilson - Last Filed: 08/09/16 18:41> Date of Encounter: 08/09/16 Date of admission: 08/06/16 16:19 Primary care physician: PCP NO Hospital course: Ms. Hameed is a 45 year old female - Time Spent with Patient Total time spent providing and/or coordinating discharge services: - Constitutional Vitals: Temp Pulse Resp BP Pulse Ox 98.7 F 96 18 133/76 98 08/08/16 07:07 08/08/16 07:07 08/08/16 07:07 08/08/16 07:07 08/08/16 08:00 - Attending Attestation I examined this patient and my medical decision-making was reviewed with the DRAPERY INSPECTOR/PA/Advanced Practice Nurse/Resident Physician. I agree with the documented findings, disposition and treatment plan as described except to the extent set forth below.
--- NOTE | 2016-08-08 11:36 | Physician Discharge Referral ---
<Gualberto Ramesh - Last Filed: 08/08/16 11:35> Home Health/Hosp Referral Info Transfer to: Home Health Provider in Charge Post Discharge: PCP - Diagnosis (1) CHF exacerbation Priority: Primary Status: Acute (2) Skin lesions Priority: Secondary Status: Acute (3) HTN (hypertension) Priority: Secondary Status: Chronic (4) Diabetes mellitus type 1 Priority: Secondary Status: Chronic (5) Personal history of DVT (deep vein thrombosis) Priority: Secondary Status: Chronic (6) Morbid obesity with BMI of 60.0-69.9, adult Priority: Secondary Status: Acute - Respiratory Orders Oxygen / L per min (5L continuous) Smoking Cessation: Smoking cessation has been advised. For more information, call the [place] Tobacco Quit Line at 4-543-XLJD-NOW. - Diet/Nutrition Diet/Nutrition Orders: No Added Salt (BERTHA) (Fluid restriction of 1.5 L), Cardiac - Activity Activity Orders: Walker - Services Needed Following services are medically necessary services: Nursing, Home Health Aide - Transfer Medications Home Medications: ALPRAZolam [Xanax 0.5 MG Tablet] 0.5 mg PO BID PRN 01/20/16 [History] Aripiprazole [Abilify] 20 mg PO DAILY 01/20/16 [History] Aspirin 81 mg PO HS 01/20/16 [History] Carvedilol 12.5 mg PO Q12H 01/20/16 [History] Docusate [Colace] 100 mg PO BID 01/20/16 [History] Furosemide 80 mg IV TID 01/20/16 [History] HYDROcodone/Acet 10/325 mg [[place] 10-325 mg] 1 tab PO Q6H PRN 01/20/16 [History] Metolazone [Zaroxolyn] 5 mg PO MOTH 01/20/16 [History] Nitroglycerin [Nitrostat] 0.4 mg SL Q5M PRN 01/20/16 [History] Nystatin POWDER [Nystop] 1 appl TP BID 01/20/16 [History] OXcarbazepine [Oxcarbazepine] 600 mg PO BID 01/20/16 [History] Ondansetron HCl 4 mg PO Q8H PRN 01/20/16 [History] Polyethylene Glycol 3350 [Smoothlax] 17 gm PO DAILY #0 01/20/16 [History] Potassium Chloride [K-Tab ER] 20 meq PO BIDWM 01/20/16 [History] Rivaroxaban [Xarelto] 20 mg PO QPM 01/20/16 [History] hydrALAZINE [HydrALAZINE] 25 mg PO TID 01/20/16 [History] Atorvastatin Calcium [Lipitor] 80 mg PO HS 08/05/16 [History] Benztropine [Cogentin] 1 mg PO HS 08/05/16 [History] Dicyclomine [Bentyl] 20 - 40 mg PO QID 08/05/16 [History] Esomeprazole Magnesium [Nexium] 20 mg PO QAM 08/05/16 [History] Exenatide Microspheres [Bydureon Pen] 2 mg SQ QWEEK 08/05/16 [History] Ferrous Gluconate 324 mg PO DAILY 08/05/16 [History] Guaifenesin [Mucinex] 600 mg PO BID 08/05/16 [History] Insulin Regular U-500 [HumuLIN R U-500] 45 unit SQ QPM 08/05/16 [History] Insulin Regular U-500 [HumuLIN R U-500] 70 unit SQ 1200 08/05/16 [History] Insulin Regular U-500 [HumuLIN R U-500] 80 units SQ QAM 08/05/16 [History] Isosorbide DInitrate [Isosorbide Dinitrate] 20 mg PO TID 08/05/16 [History] Oxybutynin Chloride [Ditropan Xl] 15 mg PO DAILY 08/05/16 [History] Spironolactone [Aldactone] 50 mg PO DAILY 08/05/16 [History] Trazodone HCl 400 mg PO HS 08/05/16 [History] Allergies/Adverse Reactions: Allergies adhesive tape Allergy (Mild, Verified 08/05/16 20:56) skin irritation Reports allergy to paper tape. Reports skin irriation. Amoxicillin [From Augmentin] Allergy (Verified 06/21/16 14:38) Hives clavulanic acid [From Augmentin] Allergy (Verified 06/21/16 14:38) Hives codeine Allergy (Verified 06/21/16 14:38) Swelling of Lip/Tongue/Throat levofloxacin [From Levaquin] Allergy (Verified 06/21/16 14:38) Hives silver sulfadiazine Allergy (Verified 06/21/16 14:38) Itching Sulfa (Sulfonamide Antibiotics) Allergy (Verified 06/21/16 14:38) Hives tramadol [From Ultram] Allergy (Verified 06/21/16 14:38) Swelling of Lip/Tongue/Throat Certification: Further, I certify that my clinical findings support that this patient is homebound (i.e. absences from home require considerable and taxing effort and are for medical reasons or yazdanism services or infrequently or short duration when for other reasons) because: Homebound Reason: Patient requires assistance of a person or device to safely leave home Attestation: My signature below is to certify that this patient is under my care and that I, or nurse practitioner, or a physician's assistant department manager working with me, has a face-to -face encounter with this patient. <Parth Wilson P - Last Filed: 08/08/16 16:55> - Respiratory Orders Smoking Cessation: Smoking cessation has been advised. For more information, call the [place] Tobacco Quit Line at 7-338-KBZK-NOW. Certification: Further, I certify that my clinical findings support that this patient is homebound (i.e. absences from home require considerable and taxing effort and are for medical reasons or yazdanism services or infrequently or short duration when for other reasons) because: Attestation: My signature below is to certify that this patient is under my care and that I, or nurse practitioner, or a physician's assistant department manager working with me, has a face-to -face encounter with this patient.
[2016-08-08] MEDS: Ondansetron ODT 4 MG TAB.RAPDIS PO PRN (12:10)
[2016-08-08] MEDS: *HR* Rivaroxaban 10 MG TABLET PO SCH (16:19)
== END 2016-08-08 18:45 | disposition home health service (06) | DRG 291 ==
LOC: EMEROO 15:00 → 2NENU 15:00 → SUATTDRO 08-06 16:19
PROVIDERS: ADMIT Internal Medicine Sleep Medicine; ATTEND Internal Medicine

== ENCOUNTER 2016-11-28 14:34 | Inpatient (IN) ==
--- NOTE | 2016-11-28 14:53 | Emergency Department Note ---
Disposition Clinical Impression: Generalized weakness Altered mental status Qualifiers: Altered mental status type: unspecified Qualified Code(s): R41.82 - Altered mental status, unspecified UTI (urinary tract infection) Qualifiers: Urinary tract infection type: catheter-associated UTI Indwelling urinary catheter type: indwelling urethral catheter Encounter type: initial encounter Qualified Code(s): T83.511A - Infection and inflammatory reaction due to indwelling urethral catheter, initial encounter Disposition: Admitted As Inpatient Condition: Fair Forms: ED Satisfaction Letter Time of Disposition: 17:18 Altered Mental Status HPI - General Chief Complaint: ED Altered Mental Status Stated Complaint: AMS Time Seen by Provider: 11/28/16 14:36 Source: patient Mode of arrival: EMS Limitations: no limitations Nursing Notes Reviewed: Yes Vital Signs Reviewed: Yes - History of Present Illness HPI Narrative: 46-year-old female presents to the ED complaining of altered mental status. She states that last night prior to going to bed she said that she had a hard time walking and noted that her speech was started to slur and she is worried that she was having a stroke. She did not come in at that time because she thought that she would be fine. This morning she did have a fall but did not hit her head or lose any consciousness. She was then helped. She notes that she has not started to feel better sense of brought her in today. She said that she has right-sided weakness and cannot feel things on the right side. She is unable to walk even with a walker which is abnormal for her she said that she has double vision, slurred speech which is bothering her she does not have any pain anywhere else at this time. Patient does have a central line for getting medications and drying blood. She said she was worried that it is infected. She has recently stopped ampicillin about a week ago she is not sure why she was on it for 2 weeks. She has a Dewitt catheter in and said there is blood coming out of it which is where her as well. She said it was replaced approximately one week ago and normally gets replaced every 2 weeks. States she has no short of breath, chest pain, fevers, abdominal pain. - Related Data Home Medications Medication Instructions Recorded Confirmed ALPRAZolam [Xanax 0.5 MG Tablet] 0.5 mg PO BID PRN 01/20/16 11/28/16 Aripiprazole [Abilify] 20 mg PO DAILY 01/20/16 11/28/16 Aspirin 81 mg PO HS 01/20/16 11/28/16 Carvedilol 12.5 mg PO Q12H 01/20/16 11/28/16 Docusate [Colace] 100 mg PO BID 01/20/16 11/28/16 HYDROcodone/Acet 10/325 mg [[place]ioch 1 tab PO Q6H PRN 01/20/16 11/28/16 10-325 mg] Metolazone [Zaroxolyn] 5 mg PO MOTHSA 01/20/16 11/28/16 Nitroglycerin [Nitrostat] 0.4 mg SL Q5M PRN 01/20/16 11/28/16 Nystatin POWDER [Nystop] 1 appl TP BID PRN 01/20/16 11/28/16 OXcarbazepine [Oxcarbazepine] 600 mg PO BID 01/20/16 11/28/16 Ondansetron HCl 4 mg PO Q8H PRN 01/20/16 11/28/16 Potassium Chloride [K-Tab ER] 80 meq PO BIDWM 01/20/16 11/28/16 Rivaroxaban [Xarelto] 20 mg PO QPM 01/20/16 11/28/16 hydrALAZINE [HydrALAZINE] 12.5 mg PO TID 01/20/16 11/28/16 Atorvastatin Calcium [Lipitor] 80 mg PO HS 08/05/16 11/28/16 Benztropine [Cogentin] 1 mg PO HS 08/05/16 11/28/16 Dicyclomine [Bentyl] 20 - 40 mg PO QID 08/05/16 11/28/16 Esomeprazole Magnesium [Nexium] 20 mg PO QAM 08/05/16 11/28/16 Exenatide Microspheres [Bydureon 2 mg SQ FR 08/05/16 11/28/16 Pen] Ferrous Gluconate 324 mg PO DAILY 08/05/16 11/28/16 Guaifenesin [Mucinex] 600 mg PO BID 08/05/16 11/28/16 Insulin Regular U-500 [HumuLIN R 45 unit SQ QPM 08/05/16 11/28/16 U-500] Insulin Regular U-500 [HumuLIN R 70 unit SQ 1200 08/05/16 11/28/16 U-500] Insulin Regular U-500 [HumuLIN R 80 units SQ QAM 08/05/16 11/28/16 U-500] Isosorbide DInitrate [Isosorbide 20 mg PO TID 08/05/16 11/28/16 Dinitrate] Oxybutynin Chloride [Ditropan Xl] 15 mg PO DAILY 08/05/16 11/28/16 Spironolactone [Aldactone] 50 mg PO DAILY 08/05/16 11/28/16 Trazodone HCl 200 mg PO HS 08/05/16 11/28/16 Furosemide [Lasix] 100 mg IVP TID 11/28/16 11/28/16 Previous Rx's Medication Instructions Recorded Albuterol Sulfate [Albuterol 2 puff IH Q4HR PRN #1 [email or web address] 08/17/16 Inhaler] Oxymetazoline [Afrin] 1 spray NS Q12HR PRN #1 bottle 11/04/16 Allergies Allergy/AdvReac Type Severity Reaction Status Date / Time adhesive tape Allergy Mild skin Verified 11/12/16 15:43 irritation Amoxicillin [From Augmentin] Allergy Hives Verified 11/12/16 15:43 clavulanic acid Allergy Hives Verified 11/12/16 15:43 [From Augmentin] codeine Allergy Swelling Verified 11/12/16 15:43 of Lip/Tongue/Throat levofloxacin [From Levaquin] Allergy Hives Verified 11/12/16 15:43 silver sulfadiazine Allergy Itching Verified 11/12/16 15:43 Sulfa (Sulfonamide Allergy Hives Verified 11/12/16 15:43 Antibiotics) tramadol [From Ultram] Allergy Swelling Verified 11/12/16 15:43 of Lip/Tongue/Throat Constitutional: Reports: weakness. Denies: fever, chills, weight change Eyes: Reports: vision change (Blurred vision.). Denies: eye pain, eye discharge ENT ED: Denies: ear pain, throat pain, dental pain, hearing loss, epistaxis, congestion, dysphagia Cardiovascular: Denies: chest pain, palpitations, dyspnea on exertion, edema, syncope Respiratory: Denies: cough, dyspnea, wheezes, hemoptysis, stridor Gastrointestinal: Denies: abdominal pain, nausea, vomiting, diarrhea, constipation, hematemesis, melena, hematochezia Genitourinary: Denies: dysuria, frequency, hematuria, discharge Musculoskeletal: Denies: back pain, neck pain, arthralgia, myalgia Integumentary: Reports: as per HPI Neurological: Reports: weakness, numbness, paresthesias, abnormal gait (She says she is unable to walk with her walker which is not normal for her.). Denies: headache, confusion, vertigo Psychiatric: Denies: anxiety, depression, suicidal thoughts, homicidal thoughts , auditory hallucinations, visual hallucinations Endocrine: Denies: fatigue Hematological/Lymphatic: Denies: easy bleeding, easy bruising Allergic/Immunologic: Denies: facial swelling, urticaria Past Medical History - Past Medical History Medical history: Reports: asthma, CHF, COPD, DVT, diabetes, hyperlipidemia, hypertension, peripheral artery disease, pulmonary embolus Surgical history: Reports: cholecystectomy, orthopedic, other, IVC filter, arthroscopy Psychiatric history: Reports: anxiety, bipolar, depression [employer] history: Reports: non-contributory - Social History Smoking Status: Never smoker Smokeless Tobacco Status: No Alcohol use: Reports: rarely Drug use: Reports: none Physical Exam - General General appearance: alert - Head Head exam: atraumatic, normocephalic, normal inspection - Eye Eye exam: Present: normal appearance, PERRL, EOMI. Absent: nystagmus - ENT ENT exam: normal exam, normal oropharynx, mucous membranes moist - Neck Neck exam: Present: normal inspection, full ROM, trachea midline. Absent: tenderness - Chest Chest inspection: Present: normal inspection, symmetric chest wall rise - Respiratory Respiratory exam: Present: normal lung sounds bilaterally. Absent: respiratory distress, wheezes, accessory muscle use - Cardiovascular Cardiovascular exam: Present: regular rate, normal rhythm, normal heart sounds - Abdominal Exam Abdominal exam: Present: soft, Non-Tender, normal bowel sounds. Absent: tenderness, distention, guarding, rebound, rigidity - Back Exam Back exam: Present: normal inspection, full ROM. Absent: tenderness - Neurological Exam Neurological exam: Present: alert, oriented X3, CN II-XII intact, motor sensory deficit - Expanded Neurological Exam Patient oriented to: Present: person, place, time Speech: Present: fluid speech Cranial nerves: EOM function (II, III, IV, ): Normal, facial sensation (V): Abnormal Right, facial palsy (VII): Normal, spinal accessory function (XI): Normal, tongue deviation (XII): Normal Cerebellar function: finger to nose: Normal Motor strength - LUE: 4/5 Motor strength - RUE: 4/5 Motor strength - LLE: 4/5 Motor strength - RLE: 4/5 Upper motor neuron exam: heri neglect: Absent bilaterally, pronator drift: Absent bilaterally Sensory exam upper extremity: light touch: Normal Sensory exam lower extremity: light touch: Abnormal Left Coma Scale Eye Opening: Spontaneous Coma Scale Motor Response: Obeys Commands Coma Scale Verbal Response: Oriented Coma Scale Total: 15 - Skin Skin exam: Present: warm, dry, intact, normal color Course Course Narrative: 46-year-old female presents the ED complaining of altered mental status. She states that she has not been acting herself and is had blurry vision as well as generalized weakness and slurring his speech since last night before she went to bed. We will do a generalized altered mental status workup including CBC, BMP, troponin. We will do a chest x-ray for any signs of pneumonia, pulmonary effusions as well as good placement of her central line that is on the right subclavian. We will also do CT noncontrast of her head for any signs of bleeding or stroke. We will also do a urinalysis looking for any signs of infection could be causing her symptoms as well. This is currently a generalized workup C Green find any source of her weakness and her slurred speech. Patient is okay with this plan. Most likely this patient will need to be admitted for further evaluation. We will talk to her on whether or not she needs to be transferred to [facility] as as were many of her specialists are. - Reevaluation(s) Reevaluation #1: Reevaluated the patient and she is still complaining of generalized weakness she did say she has not has. Psychiatric per for milligrams Zofran sublingual. Her labs did come back and abnormalities were seen on urinalysis showing possible UTI. Based on old microbiology reports she is susceptible to Zosyn so we started her on that. Due to the altered mental status, generalized weakness and UTI wheezing is best that she needs to be admitted for further evaluation. At this time will contact the hospitalist for admission. Patient is okay with being admitted. Time: 16:55 - Consultations Consultation #1: Spoke with the hospitalist Wendy Orourke who agreed to admit the patient to their service. For UTI, altered mental status, generalized weakness. I splinted her the whole history and physical as well as our assessment and plan. Time: 17:14 Vital Signs Temperature 98.1 F 11/28/16 14:37 Pulse Rate 72 11/28/16 14:37 Respiratory Rate 16 11/28/16 14:37 Blood Pressure 128/73 11/28/16 14:37 O2 Sat by Pulse Oximetry 100 11/28/16 14:37 Temperature 98.1 F 11/28/16 14:37 Pulse Rate 84 11/28/16 16:42 Respiratory Rate 16 11/28/16 16:42 Blood Pressure 136/71 11/28/16 16:42 O2 Sat by Pulse Oximetry 98 11/28/16 16:42 Oxygen Delivery Oxygen Delivery Room Air Altered Mental Status - MDM Narrative Medical decision making narrative: 46-year-old female presented to the ED complaining of generalized weakness, altered mental status. Pt with slurred speech but no other focal deficits on arrival.. Her time of onset was at 6 PM yesterday. Pt is not a candidate for tPa, considering time of onset. Pt with symmetrical gen weakenss. So we decided to generalized weakness workup including basic labs, CT head and end chest x- ray as well as EKG. Labs came back normal except for urinalysis showing a urinary tract infection. Based on past microbiology as she has been susceptible to Zosyn so we started her on Zosyn via IV. CT came back negative. Her EKG was normal. Chest x-ray was normal. At this time we felt like it was best for her to be admitted to the hospitalist service for further evaluation of this altered mental status and possible talk about getting into a senior living for better treatment. Patient agreed to this plan. Patient was accepted by the hospitalist Wendy Orourke to their service. Patient was admitted in stable condition vital signs are stable at this time. Chest X-Ray 11/28/16 14:47 IMPRESSION: No acute cardiopulmonary process D/ / 11/28/2016 15:18:42 Alejandro Vargas MD / [facility] Interpreting Provider: Alejandro Vargas MD Head CT 11/28/16 14:48 IMPRESSION: No acute intracranial abnormality. D/ / Calvin Miller MD / Calvin Miller MD Interpreting Provider: Calvin Miller MD - Medical Records Medical records reviewed: Yes I reviewed the patient's medical records. - Lab Data Lab results reviewed: Yes I reviewed the patient's lab results. Result diagrams: 11/28/16 16:04 11/28/16 16:04 Lab Results 11/28/16 11/28/16 11/28/16 Range/Units 16:04 16:04 16:04 WBC 10.0 (4.3-11.1) K/mcL RBC 3.44 L (3.82-4.97) M/mcL Hgb 9.1 L (11.5-15.4) g/dL Hct 28.7 L (35.3-44.9) % MCV 83.4 (83.0-100.0) fL MCH 26.5 L (28.0-33.3) pg MCHC 31.7 (31.6-35.5) g/dL RDW 18.0 H (11.5-14.5) % Plt Count 200 (140-400) K/mcL MPV 11.6 (9.4-12.4) fL Immature Gran % 0.3 (0-4) % Seg Neutrophils % 76.3 % Lymphocytes % 16.7 % Monocytes % 5.2 % Eosinophils % 1.1 % Basophils % 0.4 % Neutrophils # 7.6 (1.6-8.9) K/mcL Lymphocytes # 1.7 (0.6-4.6) K/mcL Monocytes # 0.5 (0.0-1.3) K/mcL Eosinophils # 0.1 (0.0-0.6) K/mcL Basophils # 0.0 (0.0-0.2) K/mcL Immature Plt Fraction 6.6 H (1.1-6.1) % PT 18.6 H (9.4-12.1) Seconds INR 1.7 APTT 33.1 (26.0-36.0) Seconds Sodium 137 (136-145) mEq/L Potassium 3.1 L (3.5-4.5) mEq/L Chloride 93 L (98-109) mEq/L Carbon Dioxide 34 H (19-29) mEq/L BUN 37 H (7-20) mg/dL Creatinine 1.08 (0.57-1.11) mg/dL Est GFR ( Amer) > 60 (> 60) Est GFR (Non-Af Amer) 55 L (> 60) BUN/Creatinine Ratio 34 H (6-26) Glucose 239 H (70-99) mg/dL Calculated Osmolality 300 (280-300) Calcium 9.1 (8.6-10.8) mg/dL Total Bilirubin < 0.2 L (0.2-1.2) mg/dL Direct Bilirubin < 0.1 (0.0-0.5) mg/dL Indirect Bilirubin < 0.1 (0.0-1.2) mg/dL AST 10 (5-34) Units/L ALT 9 (0-55) Units/L Alkaline Phosphatase 143 H (38-126) Units/L Troponin I (0-0.03) ng/mL B-Natriuretic Peptide (0-100) pg/mL Serum Total Protein 6.5 (6.0-8.3) g/dL Albumin 2.7 L (3.5-5.0) g/dL Globulin 3.8 H (2.4-3.5) g/dL Albumin/Globulin Ratio 0.7 L (1.1-2.2) Urine Color (Yellow) Urine Clarity (Clear) Urine pH (5.0-8.0) pH Units Ur Specific Kin[place] (1.010-1.025) Urine Protein (Neg-Trace) mg/dL Urine Glucose (UA) (Normal) mg/dL Urine Ketones (Negative) mg/dL Urine Blood (Negative) Urine Nitrite (Negative) Urine Bilirubin (Negative) Urine Urobilinogen (Normal) mg/dL Ur Leukocyte Esterase (Negative) Urine Microscopic RBC (0-3) per hpf Urine Microscopic WBC (0-3) per hpf Ur Squamous Epith Cells (None-Few) per lpf Triple Phos Crystals Urine Bacteria (None-Few) per hpf Ur Culture Indicated? (NO) 09/11/28/16 11/28/16 Range/Units 16:04 16:04 16:08 WBC (4.3-11.1) K/mcL RBC (3.82-4.97) M/mcL Hgb (11.5-15.4) g/dL Hct (35.3-44.9) % MCV (83.0-100.0) fL MCH (28.0-33.3) pg MCHC (31.6-35.5) g/dL RDW (11.5-14.5) % Plt Count (140-400) K/mcL MPV (9.4-12.4) fL Immature Gran % (0-4) % Seg Neutrophils % % Lymphocytes % % Monocytes % % Eosinophils % % Basophils % % Neutrophils # (1.6-8.9) K/mcL Lymphocytes # (0.6-4.6) K/mcL Monocytes # (0.0-1.3) K/mcL Eosinophils # (0.0-0.6) K/mcL Basophils # (0.0-0.2) K/mcL Immature Plt Fraction (1.1-6.1) % PT (9.4-12.1) Seconds INR APTT (26.0-36.0) Seconds Sodium (136-145) mEq/L Potassium (3.5-4.5) mEq/L Chloride (98-109) mEq/L Carbon Dioxide (19-29) mEq/L BUN (7-20) mg/dL Creatinine (0.57-1.11) mg/dL Est GFR ( Amer) (> 60) Est GFR (Non-Af Amer) (> 60) BUN/Creatinine Ratio (6-26) Glucose (70-99) mg/dL Calculated Osmolality (280-300) Calcium (8.6-10.8) mg/dL Total Bilirubin (0.2-1.2) mg/dL Direct Bilirubin (0.0-0.5) mg/dL Indirect Bilirubin (0.0-1.2) mg/dL AST (5-34) Units/L ALT (0-55) Units/L Alkaline Phosphatase (38-126) Units/L Troponin I 0.01 (0-0.03) ng/mL B-Natriuretic Peptide 93 (0-100) pg/mL Serum Total Protein (6.0-8.3) g/dL Albumin (3.5-5.0) g/dL Globulin (2.4-3.5) g/dL Albumin/Globulin Ratio (1.1-2.2) Urine Color Yellow (Yellow) Urine Clarity Cloudy A (Clear) Urine pH 8.5 H (5.0-8.0) pH Units Ur Specific [place] 1.027 H (1.010-1.025) Urine Protein >=300 H (Neg-Trace) mg/dL Urine Glucose (UA) Normal (Normal) mg/dL Urine Ketones Negative (Negative) mg/dL Urine Blood Moderate H (Negative) Urine Nitrite Negative (Negative) Urine Bilirubin Negative (Negative) Urine Urobilinogen Normal (Normal) mg/dL Ur Leukocyte Esterase Large H (Negative) Urine Microscopic RBC 5-15 H (0-3) per hpf Urine Microscopic WBC 0-3 (0-3) per hpf Ur Squamous Epith Cells Few (None-Few) per lpf Triple Phos Crystals Present Urine Bacteria Moderate H (None-Few) per hpf Ur Culture Indicated? YES A (NO) - Radiology Data Radiology results reviewed: Yes I reviewed the patient's radiology results. - EKG Data EKG attestation: Yes I reviewed and interpreted this EKG. EKG results narrative: EKG done at 1500 and reviewed by myself and the attending shows a normal sinus rhythm at a rate of 72, PA interval 127, QRS 102, QTC 426 with a normal axis. There are no ST changes, T-wave changes. No signs of heart strain, heart block , hypertrophy. No signs of W Nahed's as regards syndrome. This comparison old EKG done 11/18/16 which also shows night normal sinus rhythm with no acute changes. Overall impression is normal sinus rhythm with no acute changes. EKG shows normal: sinus rhythm, axis, intervals, QRS complexes, ST-T waves Rate: normal Rhythm: NSR Purchase/QRS: normal Voltage: decreased voltage throughout When compared to previous EKG there are: no significant changes Interpretation: no acute changes, normal EKG, unchanged when compared to prior tracing (date) TPA Checklist - Eligibilty for IV tPA 1. LKW equal to or less than 4.5 hours be before treatment: No 2. Clinical diagnosis of ischemic stroke causing deficit: No Attestation Statement - Attestation Attestation: I examined this patient and my medical decision-making was reviewed with the Resident Physician, Dr. Rae. I agree with the documented findings, disposition and treatment plan as described except to the extent set forth below. Patient is a 46-year-old morbidly obese white female who is a frequent visitor of the emergency department who was just recently discharged last from [place] for an acute exacerbation of CHF. Patient has an indwelling Dewitt catheter and is on chronic antibiotics via a port in her right anterior chest wall and patient states these antibiotics were discontinued at time of discharge from [facility]. Patient states that last night at about 6 PM she was feeling significantly weak in a generalized fashion and was unable to get herself out of her wheelchair without assistance. Patient states that both legs bilaterally felt weak like she could not support herself and she felt like her speech was somewhat slurred. Patient states that she "did not feel well" and went to bed and upon waking this morning was still feeling generalized weakness denies any focal weakness of an isolated arm or leg denies any headaches, visual changes, no vertigo or spinning sensation. Dizziness, and no complaints of numbness with the exception of the right side of her face. Patient denies any chest pain pressure or heaviness, no shortness of breath, no palpitations, no abdominal pain, no diaphoresis, no nausea vomiting no other associated symptoms. Patient's Dewitt catheter bag on initial assessment shows grossly bloody urine. Patient is hemodynamically stable on arrival to the ED. I agree with the patient's physical exam assessment as documented. For me on assessment she had no focal neurologic deficits but subjective paresthesias of the right side of her face and for me speech was clear. Suspicious for possible urinary tract infection which could have caused generalized weakness and some mental status change and the patient. Patient remained hemodynamically stable. Patient had been placed on monitoring tech, continuous pulse ox, EKG does not show any significant change from priorischemia. Patient was sent for CT head based on her waxing and waning neurologic changes. Labs were drawn and sent as well as urinalysis. Patient's CT head is unremarkable. Chest x-ray is clear without evidence of consolidation or exacerbation of her CHF. Labs show a chronic anemia, patient also with what appears to be a urinary tract infection with large leuks blood and bacteria in her urine. Upon review of prior sensitivity reports it looks as if her urine was previously sensitive to Zosyn so we will initiate this in the ED. Clinically suspect generalized weakness secondary to recurrent urinary tract infections since recent antibiotics and been discontinued. Patient remains hemodynamically stable at this time and will be admitted for further evaluation and ongoing management. Case was discussed with the hospitalist who accepted the patient for admission.
[2016-11-28 16:11] LABS: Basophils % 0.4 %; Eosinophils # 0.1 K/mcL (0.0-0.6); Eosinophils % 1.1 %; Hematocrit 28.7 % (35.3-44.9); Hemoglobin 9.1 g/dL (11.5-15.4); Immature Granulocytes % 0.3 % (0-4); Immature Platelets 6.6 % (1.1-6.1); Lymphocytes # 1.7 K/mcL (0.6-4.6); Lymphocytes % 16.7 %; Mean Corpuscular HGB Conc 31.7 g/dL (31.6-35.5); Mean Corpuscular Hemoglobin 26.5 pg (28.0-33.3); Mean Corpuscular Volume 83.4 fL (83.0-100.0); Mean Platelet Volume 11.6 fL (9.4-12.4); Monocytes # 0.5 K/mcL (0.0-1.3); Monocytes % 5.2 %; Neutrophils # 7.6 K/mcL (1.6-8.9); Platelet Count 200 K/mcL (140-400); Red Blood Count 3.44 M/mcL (3.82-4.97); Segmented Neutrophils % 76.3 %
[2016-11-28 16:15] LABS: INR 1.7; Prothrombin Time 18.6 Seconds (9.4-12.1)
[2016-11-28 16:18] LABS: Activated Partial Thrombo Time 33.1 Seconds (26.0-36.0)
[2016-11-28 16:19] LABS: Bilirubin,Urine Negative (Negative); Blood,Urine Moderate (Negative); Clarity,Urine Cloudy (Clear); Color,Urine Yellow (Yellow); Glucose,Urine (UA) Normal (Normal); Ketones,Urine Negative (Negative); Leukocyte Esterase,Urine Large (Negative); Nitrite,Urine Negative (Negative); PH,Urine 8.5 pH Units (5.0-8.0); Protein,Urine >=300 mg/dL (Neg-Trace); Specific Gravity,Urine 1.027 (1.010-1.025); Urobilinogen,Urine Normal (Normal)
[2016-11-28 16:24] LABS: Alanine Aminotransferase 9 Units/L (0-55); Albumin 2.7 g/dL (3.5-5.0); Albumin/Globulin Ratio 0.7 (1.1-2.2); Alkaline Phosphatase 143 Units/L (38-126); Aspartate Amino Transferase 10 Units/L (5-34); BUN/Creatinine Ratio 34 (6-26); Blood Urea Nitrogen 37 mg/dL (7-20); Calcium 9.1 mg/dL (8.6-10.8); Carbon Dioxide 34 mEq/L (19-29); Chloride 93 mEq/L (98-109); Globulin 3.8 g/dL (2.4-3.5); Glucose 239 mg/dL (70-99); Osmolality,Calculated 300 (280-300); Potassium 3.1 mEq/L (3.5-4.5); Sodium 137 mEq/L (136-145); Total Protein 6.5 g/dL (6.0-8.3); eGFR For African Americans > 60 (> 60); eGFR For Non-African Americans 55 (> 60)
[2016-11-28 16:24] LABS: Squamous Epithelial Cell,Urine Few per lpf (None-Few)
[2016-11-28 16:26] LABS: Bacteria,Urine Moderate per hpf (None-Few); WBC,Urine 0-3 per hpf (0-3)
[2016-11-28 16:27] LABS: Triple Phosphate Crystal,Urine Present
[2016-11-28 16:29] LABS: Bilirubin,Direct < 0.1 mg/dL (0.0-0.5); Bilirubin,Indirect < 0.1 mg/dL (0.0-1.2); Bilirubin,Total < 0.2 mg/dL (0.2-1.2)
[2016-11-28] MEDS ORDERED: Piperacillin/Tazobactam 3.375 GM in D5% in Water (Mini-Bag+) 100 ML IVPB ONE (16:35)
[2016-11-28] MEDS ORDERED: Ondansetron ODT 4 MG TAB.RAPDIS SL ONE (16:44)
[2016-11-28] MEDS ORDERED: Aminoglycoside Consult 1 EACH MC ONE (19:20)
[2016-11-28] MEDS ORDERED: Acetaminophen 325 MG TABLET PO PRN (20:05)
[2016-11-28] MEDS ORDERED: Naloxone 0.4 MG/ML INJ IVP PRN (20:05)
[2016-11-28] MEDS ORDERED: Nitroglycerin 0.4 MG TAB.SUBL SL PRN (20:16)
[2016-11-28] MEDS ORDERED: ALPRAZolam 0.5 MG TABLET PO PRN (20:16)
[2016-11-28] MEDS ORDERED: Nystatin POWDER 30 GM BOTTLE TP PRN (20:16)
[2016-11-28] MEDS ORDERED: Oxymetazoline Nasal SPRAY BOTTLE NS PRN (20:16)
[2016-11-28] MEDS ORDERED: *HR* Dextrose 50 % in Water (Syg) 50 ML SYRINGE IVP PRN (21:00)
[2016-11-28] MEDS ORDERED: D5% in Water 1,000 ML IVC PRN (21:00)
[2016-11-28] MEDS ORDERED: Dextrose Gel 15 GM PO PRN ×2 (21:00)
[2016-11-28] MEDS ORDERED: Vancomycin 1,250 MG in D5% in Water 250 ML IVPB SCH (21:00)
[2016-11-28] MEDS: Furosemide 40 MG/4 ML VIAL IVP SCH (21:55)
[2016-11-28] MEDS: Pantoprazole 40 MG VIAL IVP SCH (21:55)
[2016-11-28] MEDS: traZODone 50 MG TABLET PO SCH (21:55)
[2016-11-28] MEDS: Vancomycin 2,000 MG in D5% in Water 500 ML IVPB SCH (21:57)
[2016-11-28] MEDS: hydrALAZINE 25 MG TABLET PO SCH (21:57)
[2016-11-28] MEDS: Aspirin 81 MG TAB.CHEW PO SCH (21:57)
[2016-11-28] MEDS: OXcarbazepine 150 MG TABLET PO SCH (21:57)
[2016-11-28] MEDS: methylPREDNISolone 125 MG/2 ML VIAL IVP SCH (22:06)
[2016-11-28] MEDS: Insulin LISPRO 300 UNITS/3 ML VIAL SQ SCH (22:06)
--- NOTE | 2016-11-28 22:16 | Internal Med History&Physical ---
<LatricetommieomairaValdemar morgan - Last Filed: 11/28/16 23:05> Date of Encounter: 11/28/16 Time of Encounter: 20:00 Assessment and Plan (1) Altered mental status Current visit: Yes Status: Acute Patient presents with report of transient altered mental status most likely related to acute on chronic UTI. Patient denies any history of CVA, TIAs, or previous CVA-type symptoms. CT of the head today without contrast shows no acute intracranial abnormality. On examination, patient is neurologically intact with strength equally bilateral, no pronator drift, and no facial drooping or slurred speech. IV vancomycin with pharmacy dosing and IV Zosyn 4.5 g every 8 ordered for infection coverage. Neurochecks ordered every 2. Patient placed as falls precautions/up with assist/bedrest with bathroom privileges with 2 assist only due to generalized weakness and SOB. Patient to be monitored closely for signs of neurological decline, cardiac, and/or respiratory changes/distress. Follow-up labs ordered. Qualifiers: Altered mental status type: transient alteration of awareness Qualified Code(s): R40.4 - Transient alteration of awareness (2) Dyspnea Current visit: Yes Status: Acute Patient presents with report of acute dyspnea several days most likely related to current infection status. Patient has medical history includes CHF and COPD but is not currently in acute exacerbation. Patient has hx of PE/DVT. CTA of chest ordered to rule out PE. Patient placed on supplemental O2 with titration if SPO2 less than 92% and continuous SPO2 monitoring. DuoNebs Q4 scheduled. Methylprednisolone 60 mg every 8 ordered. Will monitor patient and VS for signs of respiratory distress. CPAP ordered for HS. Qualifiers: Dyspnea type: dyspnea on exertion Qualified Code(s): R06.09 - Other forms of dyspnea (3) Generalized weakness Current visit: Yes Status: Acute Patient presents with reported generalized weakness over the past several days. Patient places falls precautions/up with assist/bedrest with bathroom privileges with 2 assist only due to SOB and generalized weakness. (4) Hypokalemia Current visit: Yes Status: Acute Patient presents with acute hypokalemia on admission to ED. Potassium level is 3.1. Patient to receive potassium IVPB of 10 mEq over 1 hour. Will monitor potassium level and follow-up labs. Patient placed on continuous cardiac telemetry. (5) Bilateral lower leg cellulitis Current visit: Yes Status: Chronic Patient presents with chronic cellulitis of LEs that extends from ankle to upper thighs. Legs are erythematous and edematous with large scabbing present over legs. Wound care consult, daily wound care, and wound cultures ordered. Surgical consult ordered. IV vancomycin with pharmacy dosing and IV Zosyn 4.5 gm Q8 ordered for overall infection coverage. Patient also has hx of DVT so bilateral venous Dopplers of LEs ordered to rule out DVT. (6) UTI (urinary tract infection) Current visit: Yes Status: Chronic Patient presents with history of acute on chronic UTI. Patient's initial UA in the ED was indicative for culture. Current WBC 10.0 and patient does not currently meet sepsis criteria. IV vancomycin with pharmacy dosing and IV Zosyn 4.5 g every 8 ordered for infection coverage. Monitor I&O and daily weight. Qualifiers: Urinary tract infection type: catheter-associated UTI Indwelling urinary catheter type: indwelling urethral catheter Encounter type: initial encounter Qualified Code(s): T83.511A - Infection and inflammatory reaction due to indwelling urethral catheter, initial encounter; N39.0 - Urinary tract infection , site not specified (7) HLD (hyperlipidemia) Current visit: Yes Status: Chronic Patient presents with history of chronic hyperlipidemia. Lipid panel ordered and will continue patient's Lipitor. Qualifiers: Hyperlipidemia type: pure hypercholesterolemia Qualified Code(s): E78.00 - Pure hypercholesterolemia, unspecified; E78.0 - Pure hypercholesterolemia (8) HTN (hypertension) Current visit: Yes Status: Chronic Patient presents with a history of chronic hypertension. Will monitor patient and vital signs and continue patient's hydralazine, carvedilol, and metolazone. Qualifiers: Hypertension type: essential hypertension Qualified Code(s): I10 - Essential (primary) hypertension (9) Diabetes Current visit: Yes Status: Chronic Patient presents with uncontrolled type 1 diabetes mellitus. Blood glucose on admission is 239. Patient currently uses insulin a.m., p.m., and at noon. Medium dose correction insulin sliding scale ordered for coverage as well as hypoglycemic protocol. Blood glucose monitoring before meals at bedtime. A1c ordered. Diabetes education consult ordered. Diabetic/cardiac diet was 1.0 L fluid restriction daily ordered. Qualifiers: Diabetes mellitus type: type 1 Diabetes mellitus complication status: with unspecified complications Qualified Code(s): E10.8 - Type 1 diabetes mellitus with unspecified complications (10) DVT prophylaxis Current visit: Yes Status: Acute Patient be placed on DVT prophylaxis due to current admission protocol and bedrest status. Will continue patient's Xarelto. Internal Medicine - H&P: HPI Chief complaint: AMS/Generalized Weakness/SOB Admitted From: Emergency Dept Plans for Post Hospital Care: Home History of present illness: Ms. Hameed is a 46 year old female with medical history of asthma, CHF, COPD, DVT, PE 3, diabetes with insulin dependency, HLD, HTN, and PAD presents from the ED with chief complaint of altered mental status, SOB, and generalized weakness over the past several days. She states last night she had a hard time walking and noticed her speech began to slur. She is afraid she was having a stroke. Patient reports falling out of her chair today but did not hit her head. She also reports right-sided weakness over the past two days as well. Patient states that she has a history of chronic UTIs and that she was recently discharged from [facility] on when they drained 12.5L of fluid from her. She states she requires draining every 2-3 weeks. She also states she has been taking PO ampicillin for 10 weeks due to an infected PICC line that has been placed. She reports bilateral cellulitis of lower extremities which extends from ankle to high upper thigh. Cellulitis has extreme scabbing present. She reports generalized weakness, shortness of breath, blurry vision, and feeling confused but denies chest pain, recent illness, fevers, chills, abdominal pain, lightheadedness, dizziness, nausea, vomiting, unusual bleeding, diarrhea constipation, headache, presyncope, or syncope. On admission to ED today, patient's initial UA is indicative of culture. Patient's vital signs on admission were temperature of 90 8.1F, HR 72 bpm, respiratory rate of 16, BP of 128/73, and SPO2 of 100% on room air. WBC currently 10.0 and patient does not currently meet sepsis criteria. Abnormal labs include Hgb of 9.1 and HCT of 20.7 which is currently at patient's baseline, potassium of 3.1, GFR 55, glucose 239 albumin of 2.7, and albumin/ratio of 0.7. Initial troponin was 0.01. On examination, patient has diminished lung sounds bilaterally and heart rate is RRR. Patient is neurologically intact on examination with strength equal bilaterally. Patient is hemodynamically stable and reports only mild distress related to shortness of breath and generalized weakness. Information taken from patient, chart review, and previous medical records and imaging. Time spent with patient greater than 40 minutes. Past Med Surg Social Fam HX - Past Medical History Source: patient, old records reviewed Medical history: asthma, CHF, COPD, DVT, diabetes, hyperlipidemia, hypertension , peripheral artery disease, pulmonary embolus Psychiatric history: anxiety, bipolar, depression - Past Surgical History Surgical History: cholecystectomy, orthopedic, other, IVC filter, arthroscopy - Social History Smoking Status: Never smoker Smokeless Tobacco Status: No Alcohol use: rarely Drug use: none Current living situation: Home, With Family Activity Level: Uses cane/walker Recent Out of Country Travel Within the Last 8 Weeks: No Exposure or Possible Exposure to Illness During Travel: No - Family History Mother Race: Family Member Ethnicity: Non- Living Status: Age at : 52 Cause of : Kidney failure Hx Family Genitourinary Disorders: Yes (CKD w/dialysis) Hx Family Endocrine Disorder: Yes (DM) Father Race: Family Member Ethnicity: Non- Living Status: Still Living Hx Family Cardiac Disorders: Yes (PA x2, HLD) Hx Family Endocrine Disorder: Yes (DM) Sister Race: Family Member Ethnicity: Non- Living Status: Still Living Hx Family Autoimmune Disorders: Yes (Lupus) Internal Medicine - H&P: Meds ALPRAZolam [Xanax 0.5 MG Tablet] 0.5 mg PO BID PRN 01/20/16 [History] Aripiprazole [Abilify] 20 mg PO DAILY 01/20/16 [History] Aspirin 81 mg PO HS 01/20/16 [History] Carvedilol 12.5 mg PO Q12H 01/20/16 [History] Docusate [Colace] 100 mg PO BID 01/20/16 [History] HYDROcodone/Acet 10/325 mg [[place] 10-325 mg] 1 tab PO Q6H PRN 01/20/16 [History] Metolazone [Zaroxolyn] 5 mg PO MOTHSA 01/20/16 [History] Nitroglycerin [Nitrostat] 0.4 mg SL Q5M PRN 01/20/16 [History] Nystatin POWDER [Nystop] 1 appl TP BID PRN 01/20/16 [History] OXcarbazepine [Oxcarbazepine] 600 mg PO BID 01/20/16 [History] Ondansetron HCl 4 mg PO Q8H PRN 01/20/16 [History] Potassium Chloride [K-Tab ER] 80 meq PO BIDWM 01/20/16 [History] Rivaroxaban [Xarelto] 20 mg PO QPM 01/20/16 [History] hydrALAZINE [HydrALAZINE] 12.5 mg PO TID 01/20/16 [History] Atorvastatin Calcium [Lipitor] 80 mg PO HS 08/05/16 [History] Benztropine [Cogentin] 1 mg PO HS 08/05/16 [History] Dicyclomine [Bentyl] 20 - 40 mg PO QID 08/05/16 [History] Esomeprazole Magnesium [Nexium] 20 mg PO QAM 08/05/16 [History] Exenatide Microspheres [Bydureon Pen] 2 mg SQ FR 08/05/16 [History] Ferrous Gluconate 324 mg PO DAILY 08/05/16 [History] Guaifenesin [Mucinex] 600 mg PO BID 08/05/16 [History] Insulin Regular U-500 [HumuLIN R U-500] 45 unit SQ QPM 08/05/16 [History] Insulin Regular U-500 [HumuLIN R U-500] 70 unit SQ 1200 08/05/16 [History] Insulin Regular U-500 [HumuLIN R U-500] 80 units SQ QAM 08/05/16 [History] Isosorbide DInitrate [Isosorbide Dinitrate] 20 mg PO TID 08/05/16 [History] Oxybutynin Chloride [Ditropan Xl] 15 mg PO DAILY 08/05/16 [History] Spironolactone [Aldactone] 50 mg PO DAILY 08/05/16 [History] Trazodone HCl 200 mg PO HS 08/05/16 [History] Albuterol Sulfate [Albuterol Inhaler] 2 puff IH Q4HR PRN #1 [email or web address] 08/17/16 [Rx] Oxymetazoline [Afrin] 1 spray NS Q12HR PRN #1 bottle 11/04/16 [Rx] Furosemide [Lasix] 100 mg IVP TID 11/28/16 [History] 3 Allergy/AdvReac Type Severity Reaction Status Date / Time adhesive tape Allergy Mild skin Verified 11/12/16 15:43 irritation Amoxicillin [From Augmentin] Allergy Hives Verified 11/12/16 15:43 clavulanic acid Allergy Hives Verified 11/12/16 15:43 [From Augmentin] codeine Allergy Swelling Verified 11/12/16 15:43 of Lip/Tongue/Throat levofloxacin [From Levaquin] Allergy Hives Verified 11/12/16 15:43 silver sulfadiazine Allergy Itching Verified 11/12/16 15:43 Sulfa (Sulfonamide Allergy Hives Verified 11/12/16 15:43 Antibiotics) tramadol [From Ultram] Allergy Swelling Verified 11/12/16 15:43 of Lip/Tongue/Throat All Systems PM: A 10-system review of systems was performed and is negative for pertinent findings except as documented above in the HPI. - Constitutional Constitutional: as per HPI, fatigue, weakness, no chills, no fever(s), no night sweats - EENT Eyes: as per HPI, blurry vision, no change in vision, no discharge, no pain, no photophobia Ears: no ear discharge, no ear pain, no tinnitus Nose, mouth and throat: no dysphagia, no nasal discharge, no neck pain, no sore throat - Breasts Breasts: as per HPI - Cardiovascular Cardiovascular ROS IM: as per HPI, dyspnea, dyspnea on exertion, edema ( Bilateral LEs) - Respiratory Respiratory: as per HPI, dyspnea, dyspnea on exertion - Gastrointestinal Gastrointestinal: no abdominal pain, no diarrhea, no hematemesis, no hematochezia, no melena, no nausea, no vomiting - Genitourinary Genitourinary: no change in urinary stream, no dysuria, no flank pain, no hematuria Menstruation: as per HPI - Musculoskeletal Musculoskeletal ROS IM: no numbness, no tingling - Integumentary Integumentary IM: no rash, no unusual bruising - Neurological Neurological ROS: no confusion, no convulsions, no focal weakness, no numbness, no tingling, no tremor(s) - Psychiatric Psychiatric: as per HPI - Endocrine Endocrine IM: as per HPI - Hematologic/Lymphatic Hematologic/Lymphatic: no easy bruising - Allergic/Immunologic Allergic/Immunologic: as per HPI - Constitutional Vitals: Temp Pulse Resp BP Pulse Ox 98.2 F 72 16 119/71 96 11/28/16 20:02 11/28/16 20:02 11/28/16 20:02 11/28/16 20:02 11/28/16 20:02 General appearance: Present: cooperative, mild distress, A&O X 3, morbidly obese , pleasant, answers questions appropriately - Head Head exam: Present: atraumatic, normocephalic - Eye Eye exam: Present: PERRL, conjuntiva pink, sclera anicteric Pupils: Present: PERRL - ENT ENT exam: Present: normal exam, normal external ear exam - Neck Neck exam general surgery: Present: normal inspection, supple, trachea midline. Absent: lymphadenopathy - Respiratory Respiratory exam: Present: CTAB. Absent: accessory muscle use, rales, rhonchi, wheezes - Cardiovascular Cardiovascular exam: Present: RRR, +S1, +S2. Absent: diastolic murmur, gallop, rubs, systolic murmur - GI/Abdominal GI/Abdominal exam: Present: normal bowel sounds, soft, no peritoneal signs. Absent: distended, tenderness - Rectal Rectal exam: Present: deferred - Additional comments: exam deferred. - Extremities Exam Extremities exam: Present: pedal edema (Due to bilateral cellulitis), warm, radial pulses palpable and symmetrical - Neurological Exam Neurological exam: Present: CN II-XII intact, oriented X3, no focal deficits. Absent: pronater drift, facial droop, speech deficit - Psychiatric Psychiatric exam: Present: normal affect, normal mood - Skin Skin exam: Present: dry, intact Internal Med - H&P Results - Labs CBC & Chem 7: 11/28/16 16:04 11/28/16 16:04 - EKG Data EKG shows normal: sinus rhythm - EKG Data Prior EKG available for review: yes EKG comments: 11/28/16 22:26 EKG dated 11/18/16 shows sinus rhythm. EKG dated 11/28/16 shows sinus rhythm with low QRS voltage in precordial leads and nonspecific T-wave abnormality. - Diagnostic Studies Chest x-ray Additional comments: Impressions Chest X-Ray 11/28/16 14:47 IMPRESSION: No acute cardiopulmonary process D/ / 11/28/2016 15:18:42 Alejandro Vargas MD / magda Interpreting Provider: Alejandro Vargas MD CT scan - head Additional comments: Impressions Head CT 11/28/16 14:48 IMPRESSION: No acute intracranial abnormality. D/ / Calvin Miller MD / Calvin Miller MD Interpreting Provider: Calvin Miller MD <Al Piper - Last Filed: 11/29/16 04:39> Date of Encounter: 11/29/16 Internal Medicine - H&P: HPI History of present illness: Ms. Hameed is a 46 year old female All Systems PM: A 10-system review of systems was performed and is negative for pertinent findings except as documented above in the HPI. - Constitutional Vitals: Temp Pulse Resp BP Pulse Ox 98.6 F 81 23 90/54 99 11/28/16 23:31 11/28/16 23:31 11/28/16 23:50 11/28/16 23:31 11/28/16 23:50 Internal Med - H&P Results - Labs CBC & Chem 7: 11/28/16 16:04 11/28/16 16:04 - ABG Interpretation ABG results: 11/28/16 23:46 ABG pH 7.45 ABG pCO2 57 H ABG pO2 110 H ABG HCO3 40 H ABG Total CO2 41.3 H ABG O2 Saturation 98 ABG Base Excess 13.7 H - Attending Attestation I have seen and examined the patient. I have reviewed the orders and the note. Patient is a 46-year-old female with past medical history of CHF, COPD, DVT, diabetes, hypertension, hyperlipidemia, pulmonary embolism, anxiety, bipolar and depression. Patient presents to the ED with complaints of shortness of breath and altered mental status. Patient was initially worried that she may be having a stroke. CT of the head is negative. Patient has apparently been on ampicillin IV for almost 10 weeks. Patient is being admitted currently for bilateral lower leg cellulitis. IV antibiotics will be continued at this time. Patient is also being admitted for acute COPD exacerbation. All home medications will be continued. No other acute events or complaints at this time. Patient states she feels better at this time. Heart rate 81, blood pressure 90/54, O2 sat 99% on 3 L. Heart S1-S2 positive. General patient is morbidly obese. Lungs bilateral good air entry, slightly decreased in both bases, bilateral wheezing. Abdomen obese soft nontender. Extremities bilateral lower leg 3+ pitting edema with bilateral lower leg cellulitis and scabs. No discharge present.
[2016-11-28 23:54] LABS: ABG Base Excess 13.7 mEq/L (-2.0 to 3.0); ABG HCO3 40 mEq/L (21-27); ABG Oxygen Saturation 98 % (95-98); ABG PCO2 57 mmHg (35-45); ABG PH 7.45 pH Units (7.32-7.45); ABG PO2 110 mmHg (85-104); ABG TCO2 41.3 mEq/L (20-26)
[2016-11-28 23:55] LABS: Blood Gas FiO2 40 %
[2016-11-29] MEDS: Piperacillin/Tazobactam 3.375 GM in D5% in Water (Mini-Bag+) 100 ML IVPB SCH ×4 (00:11→23:22)
[2016-11-29] MEDS: Vancomycin 2,000 MG in D5% in Water 500 ML IVPB SCH (00:26)
[2016-11-29 05:42] LABS: Basophils % 0.2 %; Eosinophils % 0.1 %; Hematocrit 29.2 % (35.3-44.9); Immature Granulocytes % 0.4 % (0-4); Lymphocytes # 0.9 K/mcL (0.6-4.6); Lymphocytes % 10.5 %; Mean Corpuscular HGB Conc 30.8 g/dL (31.6-35.5); Mean Corpuscular Hemoglobin 26.5 pg (28.0-33.3); Mean Corpuscular Volume 85.9 fL (83.0-100.0); Mean Platelet Volume 11.7 fL (9.4-12.4); Monocytes # 0.2 K/mcL (0.0-1.3); Neutrophils # 7.4 K/mcL (1.6-8.9); Platelet Count 187 K/mcL (140-400); Red Cell Distribution Width 17.6 % (11.5-14.5); Segmented Neutrophils % 86.8 %
[2016-11-29 05:49] LABS: INR 1.2; Prothrombin Time 13.3 Seconds (9.4-12.1)
[2016-11-29 05:52] LABS: Activated Partial Thrombo Time 28.4 Seconds (26.0-36.0)
[2016-11-29 06:44] LABS: Alanine Aminotransferase 9 Units/L (0-55); Albumin 2.7 g/dL (3.5-5.0); Albumin/Globulin Ratio 0.8 (1.1-2.2); Alkaline Phosphatase 142 Units/L (38-126); Aspartate Amino Transferase 9 Units/L (5-34); BUN/Creatinine Ratio 27 (6-26); Blood Urea Nitrogen 32 mg/dL (7-20); Calcium 8.9 mg/dL (8.6-10.8); Carbon Dioxide 32 mEq/L (19-29); Chloride 93 mEq/L (98-109); Globulin 3.6 g/dL (2.4-3.5); Glucose 418 mg/dL (70-99); Osmolality,Calculated 307 (280-300); Sodium 136 mEq/L (136-145); Total Protein 6.3 g/dL (6.0-8.3); Triglycerides 112 mg/dL (< 150); eGFR For African Americans 59 (> 60); eGFR For Non-African Americans 49 (> 60)
[2016-11-29 06:45] LABS: Chol/HDL Ratio 3.2 (0-4.9); Cholesterol 142 mg/dL (< 200); HDL Cholesterol 44 mg/dL (40-59); LDL Cholesterol,Calculated 76 mg/dL (0-99)
[2016-11-29 06:46] LABS: Bilirubin,Total < 0.2 mg/dL (0.2-1.2); Potassium 4.3 mEq/L (3.5-4.5)
[2016-11-29] MEDS: ARIPiprazole 10 MG TABLET PO SCH (09:53)
[2016-11-29] MEDS: hydrALAZINE 25 MG TABLET PO SCH ×3 (09:54→22:04)
[2016-11-29] MEDS: *HR* HYDROcodone/Acet 10/325 mg TABLET PO PRN ×2 (09:54→22:03)
[2016-11-29] MEDS: OXcarbazepine 150 MG TABLET PO SCH ×2 (09:54→22:02)
[2016-11-29] MEDS: Insulin LISPRO 300 UNITS/3 ML VIAL SQ SCH ×4 (09:58→22:07)
[2016-11-29] MEDS: methylPREDNISolone 125 MG/2 ML VIAL IVP SCH (09:59)
[2016-11-29] MEDS: Pantoprazole 40 MG VIAL IVP SCH (10:00)
[2016-11-29] MEDS: Furosemide 40 MG/4 ML VIAL IVP SCH ×2 (10:00→22:08)
--- NOTE | 2016-11-29 11:51 | Venous Imaging Report ---
LE Venous Duplex Patient Name:Mariya Hameed Order Number:[id number] Procedure Date:11/29/2016 Date:1970Age:46 yrs Gender:Female Location:[facility] Room #: 3B31 Optometrist Assistant:Sabrina Coffey, RDCS, RVT Referring MD:Valdemar Gonzalez, MANAGER SAP Reading MD:Forrest Okeefe MD , FACS Study Quality:Technically Difficult Primary Indications:Hx DVT Secondary Indications: Risk Factors Yes/No Hx of DVT Yes Anticoagulants Yes Impressions: Bilateral lower extremity: normal superficial and deep exam. Recommendations: After imaging the patient returned to their room. Findings Venous Duplex Results: Right: Venous imaging of the lower extremity reveals full patency and normal vessel compressibility of the right distal iliac, right common femoral, right superficial femoral, right popliteal, right posterior tibial, right peroneal, right great saphenous and right lesser saphenous. Doppler signals in the evaluated veins were normal. The right posterior tibial, right peroneal and right lesser saphenous veins were not well visualized. Left: Venous imaging of the lower extremity reveals full patency and normal vessel compressibility of the left distal iliac, left common femoral, left superficial femoral, left popliteal, left posterior tibial, left peroneal, left great saphenous and left lesser saphenous. Doppler signals in the evaluated veins were normal. The left posterior tibial and left peroneal veins were not well visualized. Lower Extremity Venous Duplex Side Vein Compress Spontaneous Flow Augment Diameter (cm) Depth (cm) Right Distal Iliac Normal Yes Phasic Yes Right Common Femoral Normal Yes Phasic Yes Right Superficial Femoral Normal Yes Phasic Yes Right Popliteal Normal Yes Phasic Yes Right Posterior Tibial Normal Yes Phasic Yes Right Peroneal Normal Yes Phasic Yes Right Great Saphenous Normal Yes Phasic Yes Right Lesser Saphenous Normal Yes Phasic Yes Left Distal Iliac Normal Yes Phasic Yes Left Common Femoral Normal Yes Phasic Yes Left Superficial Femoral Normal Yes Phasic Yes Left Popliteal Normal Yes Phasic Yes Left Posterior Tibial Normal Yes Phasic Yes Left Peroneal Normal Yes Phasic Yes Left Great Saphenous Normal Yes Phasic Yes Left Lesser Saphenous Normal Yes Phasic Yes Updated by Forrest Okeefe MD, FACS on 11/29/2016 11:44:09 AM Forrest Okeefe MD electronically signed on 11/29/2016 11:44:42 AM with status of Final
[2016-11-29] MEDS ORDERED: Vancomycin 1,750 MG in D5% in Water 500 ML IVPB SCH (12:00)
[2016-11-29] MEDS: Ondansetron 4 MG/2 ML VIAL IVP PRN ×2 (12:17→22:08)
[2016-11-29] MEDS: Miconazole 2% ointment 114 GM TUBE TP SCH ×2 (12:18→22:08)
--- NOTE | 2016-11-29 14:54 | Internal Med Progress Note ---
Date of Encounter: 11/29/16 Time of Encounter: 14:49 - Assessment and plan (1) Acute exacerbation of chronic obstructive airways disease Current Visit: No Status: Acute Assessment and plan: improving her exacerbation mostly due to hypoventilation syndrome started tapering her IV steroids cont Duoneb and O2 back to baseline.. on 5 lit O2 currently (2) Acute diastolic (congestive) heart failure Current Visit: Yes Status: Acute Assessment and plan: Since pt was recently discharged from [facility] / Cardiology with IV lasix will obtain medical records from there mean while cont Lasix IV Close monitoring Cr and Electrolytes No 2D Echo's here to confirm wether pt had Systolic Vs diastolic dysfunction Assuming with her condition most likely diastolic dysfunction will review [facility] records (3) Chronic respiratory failure with hypoxia and hypercapnia Current Visit: Yes Status: Acute Assessment and plan: Reviewed ABG from y/d which showed well compensated Resp function Ph 7.45, Pco2 57 She is a chronic Co2 retained.. which is her baseline Recommend to continue using BiPAP QHS...She can use her own when she goes back home (4) HLD (hyperlipidemia) Current Visit: Yes Status: Chronic Assessment and plan: on statin Qualifiers: Hyperlipidemia type: pure hypercholesterolemia Qualified Code(s): E78.00 - Pure hypercholesterolemia, unspecified; E78.0 - Pure hypercholesterolemia (5) Bilateral lower leg cellulitis Current Visit: Yes Status: Chronic Assessment and plan: due to venous stasis cont local wound care may get benefit with CHRISTINE wraps (6) Diabetes Current Visit: Yes Status: Chronic Assessment and plan: on ISS at medium Not well controlled due to Steroids will add Levemir Qualifiers: Diabetes mellitus type: type 1 Diabetes mellitus complication status: with unspecified complications Qualified Code(s): E10.8 - Type 1 diabetes mellitus with unspecified complications (7) UTI (urinary tract infection) Current Visit: No Status: Acute Assessment and plan: She does have chronic indwelling cortez cath Urine cx - G-ve rods change cortez cath now on abx Zosyn for now Qualifiers: Qualified Code(s): N39.0 - Urinary tract infection, site not specified (8) Morbid obesity Current Visit: Yes Status: Chronic (9) History of pulmonary embolism Current Visit: Yes Status: Chronic Assessment and plan: Current CTA - negative for PE cont home med Xarelto (10) Deep venous thrombosis Current Visit: Yes Status: Chronic Assessment and plan: current venous doppler negative cont home med Xarelto Qualifiers: Qualified Code(s): I82.409 - Acute embolism and thrombosis of unspecified deep veins of unspecified lower extremity - Subjective Interval history: Ms. Hameed is a 46 year old female with medical history of asthma, CHF, COPD, DVT, PE 3, diabetes with insulin dependency, HLD, HTN, and PAD presents from the ED with chief complaint of altered mental status, SOB, and generalized weakness over the past several days. She states last night she had a hard time walking and noticed her speech began to slur. She is afraid she was having a stroke. Patient reports falling out of her chair today but did not hit her head. She also reports right-sided weakness over the past two days as well. Patient states that she has a history of chronic UTIs and that she was recently discharged from [facility] on when they diuresed 12.5L of fluid from her with IV Lasix. She also stated she just finished her IV ampicillin for 10 weeks due to an infected PICC line that has been placed in the past. She reports bilateral cellulitis of lower extremities which extends from ankle to high upper thigh. Cellulitis has extreme scabbing present. She reports generalized weakness, shortness of breath, blurry vision, and feeling confused but denies chest pain, recent illness, fevers, chills, abdominal pain, lightheadedness, dizziness, nausea, vomiting, unusual bleeding, diarrhea constipation, headache, presyncope, or syncope. On admission to ED today, patient's initial UA is indicative of culture. - Constitutional Vitals: Temp Pulse Resp BP Pulse Ox 98.2 F 80 17 128/68 99 11/29/16 12:12 11/29/16 12:12 11/29/16 12:12 11/29/16 12:12 11/29/16 12:12 General appearance: Present: cooperative, A&O X 3, morbidly obese, pleasant, answers questions appropriately - Head Head exam: Present: atraumatic, normal inspection - Respiratory Respiratory exam: Present: decreased breath sounds, wheezes. Absent: rales, respiratory distress, rhonchi - Cardiovascular Cardiovascular exam: Present: RRR, +S1, +S2. Absent: systolic murmur - GI/Abdominal GI/Abdominal exam: Present: distended, soft. Absent: rebound, rigid, tenderness - Extremities Exam Extremities exam: Absent: calf tenderness, pedal edema, tenderness - Back Exam Back exam: Absent: CVA tenderness (L), CVA tenderness (R) - Neurological Exam Neurological exam: Present: alert, oriented X3 Internal Medicine: Result - Labs CBC & Chem 7: 11/29/16 05:30 11/29/16 05:30 Labs: Short CBC 11/29/16 Range/Units 05:30 WBC 8.5 (4.3-11.1) K/mcL Hgb 9.0 L (11.5-15.4) g/dL Hct 29.2 L (35.3-44.9) % Plt Count 187 (140-400) K/mcL Neutrophils # 7.4 (1.6-8.9) K/mcL BMP 11/29/16 05:30 Sodium 136 Potassium 4.3 D Chloride 93 L Carbon Dioxide 32 H BUN 32 H Creatinine 1.19 H Glucose 418 H Calcium 8.9 Liver Function 11/29/16 Range/Units 05:30 Total Bilirubin < 0.2 L (0.2-1.2) mg/dL AST 9 (5-34) Units/L ALT 9 (0-55) Units/L Alkaline Phosphatase 142 H (38-126) Units/L Albumin 2.7 L (3.5-5.0) g/dL - ABG Interpretation ABG results: ABG ABG pH 7.45 pH Units (7.32-7.45) 11/28/16 23:46 ABG pCO2 57 mmHg (35-45) H 11/28/16 23:46 ABG pO2 110 mmHg (85-104) H 11/28/16 23:46 ABG O2 Saturation 98 % (95-98) 11/28/16 23:46 PT/INR, D-dimer PT 13.3 Seconds (9.4-12.1) H 11/29/16 05:30 D-Dimer 311 ng/mLFEU (0-500) 11/29/16 06:00 - Impressions Impressions Chest CTA 11/29/16 09:00 IMPRESSION: No evidence of pulmonary embolism or acute pulmonary abnormality. Minimal atelectatic changes left lower lobe. Granulomatosis. D/ / 11/29/2016 11:01:09 Brandi Gibson MD / [email or web address] Interpreting Provider: Brandi Gibson MD Consult Discharge Plan - Plan Referrals: NONE,PCP [Primary Care Provider] -
[2016-11-29] MEDS: *HR* Rivaroxaban 10 MG TABLET PO SCH (16:35)
[2016-11-29] MEDS ORDERED: metOLazone 5 MG TABLET PO SCH (20:16)
[2016-11-29] MEDS: Aspirin 81 MG TAB.CHEW PO SCH (22:04)
[2016-11-29] MEDS: traZODone 50 MG TABLET PO SCH (22:38)
[2016-11-30 05:57] LABS: Basophils # 0.1 K/mcL (0.0-0.2); Basophils % 0.9 %; Eosinophils # 0.1 K/mcL (0.0-0.6); Eosinophils % 1.3 %; Hematocrit 29.4 % (35.3-44.9); Hemoglobin 8.6 g/dL (11.5-15.4); Immature Granulocytes % 0.4 % (0-4); Lymphocytes # 2.7 K/mcL (0.6-4.6); Lymphocytes % 38.4 %; Mean Corpuscular HGB Conc 29.3 g/dL (31.6-35.5); Mean Corpuscular Hemoglobin 25.3 pg (28.0-33.3); Mean Corpuscular Volume 86.5 fL (83.0-100.0); Mean Platelet Volume 11.4 fL (9.4-12.4); Monocytes # 0.5 K/mcL (0.0-1.3); Neutrophils # 3.6 K/mcL (1.6-8.9); Platelet Count 188 K/mcL (140-400); Red Cell Distribution Width 17.6 % (11.5-14.5)
[2016-11-30 06:08] LABS: Calcium 9.2 mg/dL (8.6-10.8); Potassium 3.7 mEq/L (3.5-4.5)
[2016-11-30] MEDS: Ondansetron 4 MG/2 ML VIAL IVP PRN (08:23)
[2016-11-30] MEDS: OXcarbazepine 150 MG TABLET PO SCH (08:23)
[2016-11-30] MEDS: Furosemide 40 MG/4 ML VIAL IVP SCH (08:23)
[2016-11-30] MEDS: ARIPiprazole 10 MG TABLET PO SCH (08:24)
[2016-11-30] MEDS: hydrALAZINE 25 MG TABLET PO SCH ×2 (08:24→16:58)
[2016-11-30] MEDS: *HR* HYDROcodone/Acet 10/325 mg TABLET PO PRN (08:24)
[2016-11-30] MEDS: Piperacillin/Tazobactam 3.375 GM in D5% in Water (Mini-Bag+) 100 ML IVPB SCH (08:25)
[2016-11-30] MEDS: Miconazole 2% ointment 114 GM TUBE TP SCH (08:26)
[2016-11-30] MEDS: Insulin LISPRO 300 UNITS/3 ML VIAL SQ SCH ×2 (08:27→12:43)
[2016-11-30] MEDS ORDERED: MethylPREDNISolone 40 MG/ML VIAL IVP SCH (09:00)
[2016-11-30 11:54] VITALS: BP 124/73
--- NOTE | 2016-11-30 15:01 | Discharge Summary ---
Date of Encounter: 11/30/16 Time of Encounter: 15:02 - Discharge Diagnosis (1) UTI (urinary tract infection) Priority: Primary Status: Acute Qualifiers: Qualified Code(s): N39.0 - Urinary tract infection, site not specified (2) Acute exacerbation of chronic obstructive airways disease Priority: Primary Status: Acute (3) Acute diastolic (congestive) heart failure Priority: Primary Status: Acute (4) Chronic respiratory failure with hypoxia and hypercapnia Priority: Primary Status: Acute (5) HLD (hyperlipidemia) Priority: Secondary Status: Chronic Qualifiers: Hyperlipidemia type: pure hypercholesterolemia Qualified Code(s): E78.00 - Pure hypercholesterolemia, unspecified; E78.0 - Pure hypercholesterolemia (6) Bilateral lower leg cellulitis Priority: Secondary Status: Chronic (7) Diabetes Priority: Secondary Status: Chronic Qualifiers: Diabetes mellitus type: type 1 Diabetes mellitus complication status: with unspecified complications Qualified Code(s): E10.8 - Type 1 diabetes mellitus with unspecified complications (8) Morbid obesity Priority: Secondary Status: Chronic (9) History of pulmonary embolism Priority: Secondary Status: Chronic (10) Deep venous thrombosis Priority: Secondary Status: Chronic Qualifiers: Qualified Code(s): I82.409 - Acute embolism and thrombosis of unspecified deep veins of unspecified lower extremity - Discharge Medications Home Medications: ALPRAZolam [Xanax 0.5 MG Tablet] 0.5 mg PO BID PRN 01/20/16 [History] Aripiprazole [Abilify] 20 mg PO DAILY 01/20/16 [History] Aspirin 81 mg PO HS 01/20/16 [History] Carvedilol 12.5 mg PO Q12H 01/20/16 [History] Docusate [Colace] 100 mg PO BID 01/20/16 [History] HYDROcodone/Acet 10/325 mg [[place] 10-325 mg] 1 tab PO Q6H PRN 01/20/16 [History] Metolazone [Zaroxolyn] 5 mg PO MOTHSA 01/20/16 [History] Nitroglycerin [Nitrostat] 0.4 mg SL Q5M PRN 01/20/16 [History] Nystatin POWDER [Nystop] 1 appl TP BID PRN 01/20/16 [History] OXcarbazepine [Oxcarbazepine] 600 mg PO BID 01/20/16 [History] Ondansetron HCl 4 mg PO Q8H PRN 01/20/16 [History] Potassium Chloride [K-Tab ER] 80 meq PO BIDWM 01/20/16 [History] Rivaroxaban [Xarelto] 20 mg PO QPM 01/20/16 [History] hydrALAZINE [HydrALAZINE] 12.5 mg PO TID 01/20/16 [History] Atorvastatin Calcium [Lipitor] 80 mg PO HS 08/05/16 [History] Benztropine [Cogentin] 1 mg PO HS 08/05/16 [History] Dicyclomine [Bentyl] 20 - 40 mg PO QID 08/05/16 [History] Esomeprazole Magnesium [Nexium] 20 mg PO QAM 08/05/16 [History] Exenatide Microspheres [Bydureon Pen] 2 mg SQ FR 08/05/16 [History] Ferrous Gluconate 324 mg PO DAILY 08/05/16 [History] Guaifenesin [Mucinex] 600 mg PO BID 08/05/16 [History] Insulin Regular U-500 [HumuLIN R U-500] 45 unit SQ QPM 08/05/16 [History] Insulin Regular U-500 [HumuLIN R U-500] 70 unit SQ 1200 08/05/16 [History] Insulin Regular U-500 [HumuLIN R U-500] 80 units SQ QAM 08/05/16 [History] Isosorbide DInitrate [Isosorbide Dinitrate] 20 mg PO TID 08/05/16 [History] Oxybutynin Chloride [Ditropan Xl] 15 mg PO DAILY 08/05/16 [History] Spironolactone [Aldactone] 50 mg PO DAILY 08/05/16 [History] Trazodone HCl 200 mg PO HS 08/05/16 [History] Albuterol Sulfate [Albuterol Inhaler] 2 puff IH Q4HR PRN #1 hfa.aer.ad 08/17/16 [Rx] Oxymetazoline [Afrin] 1 spray NS Q12HR PRN #1 bottle 11/04/16 [Rx] Furosemide [Lasix] 100 mg IVP TID 11/28/16 [History] Cefdinir [Omnicef] 300 mg PO BID #10 capsule 11/30/16 [Rx] Allergies/Adverse Reactions: 3 Allergy/AdvReac Type Severity Reaction Status Date / Time adhesive tape Allergy Mild skin Verified 11/12/16 15:43 irritation Amoxicillin [From Augmentin] Allergy Hives Verified 11/12/16 15:43 clavulanic acid Allergy Hives Verified 11/12/16 15:43 [From Augmentin] codeine Allergy Swelling Verified 11/12/16 15:43 of Lip/Tongue/Throat levofloxacin [From Levaquin] Allergy Hives Verified 11/12/16 15:43 silver sulfadiazine Allergy Itching Verified 11/12/16 15:43 Sulfa (Sulfonamide Allergy Hives Verified 11/12/16 15:43 Antibiotics) tramadol [From Ultram] Allergy Swelling Verified 11/12/16 15:43 of Lip/Tongue/Throat Procedures/tests Complete & Pending: Procedures Performed prior 72 hours Category Date Time Status CT angio chest [CT] Routine Cat Scan 11/29/16 09:00 Completed EV venous imaging LE BI Routine Y 11/29/16 08:15 Completed Date of admission: 11/28/16 20:05 Primary care physician: PCP NONE Consults: 11/28/16 20:29 Consult to Wound Care [CONS] Routine Reason for Consult: Patient has bilateral chronic cellulitis of the LEs that extends from the ankle to the top of the inner thighs with large areas of scabbing and exudate present Call Completed: No 11/28/16 20:35 Consult to Logistics Service Representative [CONS] Routine Comment: Reason for Consult: Patient has hx of uncontrolled diabetes which is increasing her infection rate. Please assess for education needs regarding her diet and insulin use, wounds, etc. 11/28/16 22:32 Consult to Surgery [CONS] Routine Consulting Provider: [facility] Reason for Consult: Patient has extreme bilateral cellulitis covering both legs that is chronic in nature and thick scabbing is present as well. Assess for surgical intervention needs. Call Completed: No - Patient Status Disposition: Home Health Service Condition: Good Overall status at discharge: patient is back to baseline - Discharge Instructions Follow Up With: NONE,PCP [Primary Care Provider] - Additional Instructions: Need to f/u with PCP in one week Need to f/u with Cardiology Dr. Elizalde from [facility] as scheduled Need to have BMP drawn twice a week as before and follow up with your cardiology - Diet and Activity Activity: increase activity as tolerated Diet: low salt diet Hospital course: Ms. Hameed is a 46 year old female with medical history of asthma, CHF, COPD, DVT, PE 3, diabetes with insulin dependency, HLD, HTN, and PAD presents from the ED with chief complaint of altered mental status, SOB, and generalized weakness over the past several days. She states last night she had a hard time walking and noticed her speech began to slur. She is afraid she was having a stroke. Patient reports falling out of her chair today but did not hit her head. She also reports right-sided weakness over the past two days as well. Patient states that she has a history of chronic UTIs and that she was recently discharged from [facility] on when they diuresed 12.5L of fluid from her with IV Lasix. She also stated she just finished her IV ampicillin for 10 weeks due to an infected PICC line that has been placed in the past. She reports bilateral cellulitis of lower extremities which extends from ankle to high upper thigh. Cellulitis has extreme scabbing present. She reports generalized weakness, shortness of breath, blurry vision, and feeling confused but denies chest pain, recent illness, fevers, chills, abdominal pain, lightheadedness, dizziness, nausea, vomiting, unusual bleeding, diarrhea constipation, headache, presyncope, or syncope. On admission to ED today, patient's initial UA is indicative of culture. Pt was admitted in the hospital and started her on high dose IV steroids and duoneb and O2. Also continued her on IV Lasix. She does have mild erythema with chronic venous stasis changes in both legs. She was give IV vancomyin. She also happened to have abnormal UA and urine cx growing Proteus and Citrobacter. So changed her abx to Omnicef for 5 days course. Also noticed she was on IV Lasix 100mg TID at home, following by Cardiology Dr. Elizalde from [facility], and now her Serum Cr. 1.29. So I talked to Dr. Elizalde;s nurse from [facility], she did mention pt had CKD-2, her Cr always stays around 1.3.. Also they have been following on her BMP / Electrolytes twice a week at home. So will send her home on same Lasix dose. Pt was seen by PT / OT who recommend ECF placement for short term PT / OT, but pt refused to go to any ECF. She wanted to go home only. I did explained to her about all the risks and safety issues due to her morbid obesity and severe physical deconditioning. Still pt opted to go home only with home health services. - Time Spent with Patient Total time spent providing and/or coordinating discharge services: - Constitutional Vitals: Temp Pulse Resp BP Pulse Ox 97.4 F L 67 15 124/73 96 11/30/16 11:52 11/30/16 11:52 11/30/16 11:52 11/30/16 11:52 11/30/16 11:52 General appearance: Present: cooperative, A&O X 3, morbidly obese, pleasant, answers questions appropriately - Head Head exam: Present: atraumatic, normal inspection - Respiratory Respiratory exam: Present: decreased breath sounds, wheezes (mild). Absent: rales, respiratory distress, rhonchi - Cardiovascular Cardiovascular exam: Present: RRR, +S1, +S2. Absent: diastolic murmur, gallop, rubs, systolic murmur - GI/Abdominal GI/Abdominal exam: Present: distended, soft. Absent: pulsatile mass, rebound, tenderness - Extremities Exam Extremities exam: Present: pedal edema. Absent: calf tenderness, tenderness Additional comments: improved erythema - Neurological Exam Neurological exam: Present: alert, oriented X3 - Psychiatric Psychiatric exam: Present: normal affect, normal mood
[2016-11-30] MEDS ORDERED: Cefdinir 300 MG CAPSULE PO SCH (15:15)
--- NOTE | 2016-11-30 15:20 | Physician Discharge Referral ---
Home Health/Hosp Referral Info Transfer to: Home Health Provider in Charge Post Discharge: PCP - Diagnosis (1) UTI (urinary tract infection) Status: Acute (2) Acute exacerbation of chronic obstructive airways disease Status: Acute (3) Acute diastolic (congestive) heart failure Status: Acute (4) Chronic respiratory failure with hypoxia and hypercapnia Status: Acute (5) HLD (hyperlipidemia) Status: Chronic (6) Bilateral lower leg cellulitis Status: Chronic (7) Diabetes Status: Chronic (8) Morbid obesity Status: Chronic (9) History of pulmonary embolism Status: Chronic (10) Deep venous thrombosis Status: Chronic - Respiratory Orders Smoking Cessation: Smoking cessation has been advised. For more information, call the [place] Tobacco Quit Line at 6-745-ILKN-NOW. - Services Needed Following services are medically necessary services: Nursing, Physical Therapy, Occupational Therapy - Transfer Medications Prescriptions: Cefdinir [Omnicef] 300 mg PO BID #10 capsule Home Medications: ALPRAZolam [Xanax 0.5 MG Tablet] 0.5 mg PO BID PRN 01/20/16 [History] Aripiprazole [Abilify] 20 mg PO DAILY 01/20/16 [History] Aspirin 81 mg PO HS 01/20/16 [History] Carvedilol 12.5 mg PO Q12H 01/20/16 [History] Docusate [Colace] 100 mg PO BID 01/20/16 [History] HYDROcodone/Acet 10/325 mg [[place] 10-325 mg] 1 tab PO Q6H PRN 01/20/16 [History] Metolazone [Zaroxolyn] 5 mg PO MOTHSA 01/20/16 [History] Nitroglycerin [Nitrostat] 0.4 mg SL Q5M PRN 01/20/16 [History] Nystatin POWDER [Nystop] 1 appl TP BID PRN 01/20/16 [History] OXcarbazepine [Oxcarbazepine] 600 mg PO BID 01/20/16 [History] Ondansetron HCl 4 mg PO Q8H PRN 01/20/16 [History] Potassium Chloride [K-Tab ER] 80 meq PO BIDWM 01/20/16 [History] Rivaroxaban [Xarelto] 20 mg PO QPM 01/20/16 [History] hydrALAZINE [HydrALAZINE] 12.5 mg PO TID 01/20/16 [History] Atorvastatin Calcium [Lipitor] 80 mg PO HS 08/05/16 [History] Benztropine [Cogentin] 1 mg PO HS 08/05/16 [History] Dicyclomine [Bentyl] 20 - 40 mg PO QID 08/05/16 [History] Esomeprazole Magnesium [Nexium] 20 mg PO QAM 08/05/16 [History] Exenatide Microspheres [Bydureon Pen] 2 mg SQ FR 08/05/16 [History] Ferrous Gluconate 324 mg PO DAILY 08/05/16 [History] Guaifenesin [Mucinex] 600 mg PO BID 08/05/16 [History] Insulin Regular U-500 [HumuLIN R U-500] 45 unit SQ QPM 08/05/16 [History] Insulin Regular U-500 [HumuLIN R U-500] 70 unit SQ 1200 08/05/16 [History] Insulin Regular U-500 [HumuLIN R U-500] 80 units SQ QAM 08/05/16 [History] Isosorbide DInitrate [Isosorbide Dinitrate] 20 mg PO TID 08/05/16 [History] Oxybutynin Chloride [Ditropan Xl] 15 mg PO DAILY 08/05/16 [History] Spironolactone [Aldactone] 50 mg PO DAILY 08/05/16 [History] Trazodone HCl 200 mg PO HS 08/05/16 [History] Albuterol Sulfate [Albuterol Inhaler] 2 puff IH Q4HR PRN #1 hfa.aer.ad 08/17/16 [Rx] Oxymetazoline [Afrin] 1 spray NS Q12HR PRN #1 bottle 11/04/16 [Rx] Furosemide [Lasix] 100 mg IVP TID 11/28/16 [History] Cefdinir [Omnicef] 300 mg PO BID #10 capsule 11/30/16 [Rx] Allergies/Adverse Reactions: 3 Allergy/AdvReac Type Severity Reaction Status Date / Time adhesive tape Allergy Mild skin Verified 11/12/16 15:43 irritation Amoxicillin [From Augmentin] Allergy Hives Verified 11/12/16 15:43 clavulanic acid Allergy Hives Verified 11/12/16 15:43 [From Augmentin] codeine Allergy Swelling Verified 11/12/16 15:43 of Lip/Tongue/Throat levofloxacin [From Levaquin] Allergy Hives Verified 11/12/16 15:43 silver sulfadiazine Allergy Itching Verified 11/12/16 15:43 Sulfa (Sulfonamide Allergy Hives Verified 11/12/16 15:43 Antibiotics) tramadol [From Ultram] Allergy Swelling Verified 11/12/16 15:43 of Lip/Tongue/Throat Certification: Further, I certify that my clinical findings support that this patient is homebound (i.e. absences from home require considerable and taxing effort and are for medical reasons or orthodoxy services or infrequently or short duration when for other reasons) because: Homebound Reason: Patient requires assistance of a person or device to safely leave home Attestation: My signature below is to certify that this patient is under my care and that I, or nurse practitioner, or a physician's administration assistant working with me, has a face-to -face encounter with this patient.
[2016-11-30] MEDS: *HR* Rivaroxaban 10 MG TABLET PO SCH (16:58)
--- NOTE | 2016-12-03 17:29 | Electrocardiograph Report ---
[address] [address] Test Date: 2016-11-28 Pat Name: Mariya Hameed Department: 105 Room: 3B Gender: F Intern Retail: : 1970 Requested By: Ever Rae Order Number: [id number] Reading MD: Rahul Matute MD Measurements Intervals Lead Rate: 72 P: 41 NM: 157 QRS: 15 QRSD: 102 T: 29 QT: 401 QTc: 426 Interpretive Statements SINUS RHYTHM LOW QRS VOLTAGE IN PRECORDIAL LEADS BASELINE ARTIFACT Electronically Signed On 12-03-2016 17:27:22 EDT by Rahul Matute MD
== END 2016-11-30 19:21 | disposition home health service (06) | DRG 698 ==
LOC: 3BNU 14:34 → EMEROO 14:34 → 3BNU 18:04
PROVIDERS: ADMIT Registered Nurse; ATTEND Registered Nurse

== ENCOUNTER 2017-01-29 20:04 | Observation (INO) ==
--- NOTE | 2017-01-29 20:37 | Emergency Department Note ---
START Narrative - START START: I examined this patient and my medical decision-making was reviewed with the Resident Physician. I agree with the documented findings, disposition and treatment plan as described except to the extent set forth below. 46 year old female who is a familiar patient to the ED at our facility has a chornic indwelling catheter in addition to Stage 4 CHF And follows with [facility] for therapy. Joaquin states that she ahs noticed increased weight gain especially in her bilaeral lower extremities. In addition to this she feels increasingly more dyspneic and is concerned that she is going to an exceration with wrosening failure. She called her supervisor metal cans Dr. Elizalde office and spoke with a nurse who states that they would cyril her transferred to [facility] for furher workup and posible admission tonigiht. We will start workup and then likey tranfer to [facility].
[2017-01-29 20:44] LABS: Basophils % 0.4 %; Eosinophils # 0.2 K/mcL (0.0-0.6); Eosinophils % 2.3 %; Hematocrit 29.4 % (35.3-44.9); Hemoglobin 9.1 g/dL (11.5-15.4); Immature Granulocytes % 0.3 % (0-4); Lymphocytes # 1.4 K/mcL (0.6-4.6); Lymphocytes % 18.6 %; Mean Corpuscular Hemoglobin 27.6 pg (28.0-33.3); Mean Corpuscular Volume 89.1 fL (83.0-100.0); Mean Platelet Volume 11.6 fL (9.4-12.4); Monocytes # 0.5 K/mcL (0.0-1.3); Monocytes % 6.2 %; Neutrophils # 5.6 K/mcL (1.6-8.9); Platelet Count 206 K/mcL (140-400); Red Cell Distribution Width 17.3 % (11.5-14.5); Segmented Neutrophils % 72.2 %
[2017-01-29 20:54] LABS: BUN/Creatinine Ratio 22 (6-26); Blood Urea Nitrogen 24 mg/dL (7-20); Calcium 8.6 mg/dL (8.6-10.8); Carbon Dioxide 32 mEq/L (19-29); Chloride 94 mEq/L (98-109); Glucose 318 mg/dL (70-99); Osmolality,Calculated 300 (280-300); Potassium 3.7 mEq/L (3.5-4.5); Sodium 137 mEq/L (136-145); eGFR For African Americans > 60 (> 60); eGFR For Non-African Americans 54 (> 60)
--- NOTE | 2017-01-29 22:31 | Emergency Department Note ---
Disposition Clinical Impression: CHF exacerbation Qualifiers: Congestive heart failure type: unspecified congestive heart failure type Qualified Code(s): I50.9 - Heart failure, unspecified Disposition: Admitted As Inpatient Condition: Good SOB HPI - General Chief Complaint: ED Shortness of Breath/Dyspnea Stated Complaint: rich Time Seen by Provider: 01/29/17 20:15 Source: patient Limitations: no limitations Nursing Notes Reviewed: Yes Vital Signs Reviewed: Yes - History of Present Illness Patient presents from home for evaluation of shortness of breath. Patient states that she has had swelling in her legs that has been worse over the last several days. She was seen by her power driven brush maker yesterday for concern for CHF exacerbation. The plan was that if symptoms worsen and continue torsemide to that she would need admission. Patient states symptoms associated shortness of breath have worsened to the point that she needs admission now for diuresis. Patient gets Lasix at home 100 mg 3 times a day as well as metolazone. She follows with [facility] cardiology Dr. Elizalde. She states that he told her she would be admitted on . - Related Data Home Medications Medication Instructions Recorded Confirmed ALPRAZolam [Xanax 0.5 MG Tablet] 0.5 mg PO BID PRN 01/20/16 01/30/17 Aripiprazole [Abilify] 20 mg PO DAILY 01/20/16 01/30/17 Aspirin 81 mg PO HS 01/20/16 01/30/17 Carvedilol 12.5 mg PO Q12H 01/20/16 01/30/17 Docusate [Colace] 100 mg PO BID 01/20/16 01/30/17 HYDROcodone/Acet 10/325 mg [[place] 1 tab PO Q6H PRN 01/20/16 01/30/17 10-325 mg] Metolazone [Zaroxolyn] 5 mg PO MOTHSA 01/20/16 01/30/17 Nitroglycerin [Nitrostat] 0.4 mg SL Q5M PRN 01/20/16 01/30/17 Nystatin POWDER [Nystop] 1 appl TP BID PRN 01/20/16 01/30/17 OXcarbazepine [Oxcarbazepine] 600 mg PO BID 01/20/16 01/30/17 Ondansetron HCl 4 mg PO Q8H PRN 01/20/16 01/30/17 Potassium Chloride [K-Tab ER] 180 meq PO BIDWM 01/20/16 01/30/17 Rivaroxaban [Xarelto] 20 mg PO QPM 01/20/16 01/30/17 hydrALAZINE [HydrALAZINE] 12.5 mg PO TID 01/20/16 01/30/17 Atorvastatin Calcium [Lipitor] 80 mg PO HS 08/05/16 01/30/17 Benztropine [Cogentin] 1 mg PO HS 08/05/16 01/30/17 Dicyclomine [Bentyl] 20 - 40 mg PO QID 08/05/16 01/30/17 Esomeprazole Magnesium [Nexium] 20 mg PO QAM 08/05/16 01/30/17 Exenatide Microspheres [Bydureon 2 mg SQ FR 08/05/16 01/30/17 Pen] Ferrous Gluconate 324 mg PO DAILY 08/05/16 01/30/17 Guaifenesin [Mucinex] 600 mg PO BID 08/05/16 01/30/17 Insulin Regular U-500 [HumuLIN R 45 unit SQ QPM 08/05/16 01/30/17 U-500] Insulin Regular U-500 [HumuLIN R 70 unit SQ 1200 08/05/16 01/30/17 U-500] Insulin Regular U-500 [HumuLIN R 80 units SQ QAM 08/05/16 01/30/17 U-500] Isosorbide DInitrate [Isosorbide 20 mg PO TID 08/05/16 01/30/17 Dinitrate] Oxybutynin Chloride [Ditropan Xl] 15 mg PO DAILY 08/05/16 01/30/17 Spironolactone [Aldactone] 50 mg PO DAILY 08/05/16 01/30/17 Trazodone HCl 200 mg PO HS 08/05/16 01/30/17 Furosemide [Lasix] 100 mg IVP TID 11/28/16 01/30/17 Previous Rx's Medication Instructions Recorded Albuterol Sulfate [Albuterol 2 puff IH Q4HR PRN #1 hfa.aer.ad 08/17/16 Inhaler] Oxymetazoline [Afrin] 1 spray NS Q12HR PRN #1 bottle 11/04/16 Cefdinir [Omnicef] 300 mg PO BID #10 capsule 11/30/16 HYDROcodone/Acet 10/325 mg [[place] 1 tab PO Q6HR PRN #3 tab 12/03/16 10-325 mg] Gentamicin OPTH Soln 1 drop BOTH EYES QID #1 bottle 01/21/17 Allergies Allergy/AdvReac Type Severity Reaction Status Date / Time adhesive tape Allergy Mild skin Verified 11/12/16 15:43 irritation Amoxicillin [From Augmentin] Allergy Hives Verified 11/12/16 15:43 clavulanic acid Allergy Hives Verified 11/12/16 15:43 [From Augmentin] codeine Allergy Swelling Verified 11/12/16 15:43 of Lip/Tongue/Throat levofloxacin [From Levaquin] Allergy Hives Verified 11/12/16 15:43 silver sulfadiazine Allergy Itching Verified 11/12/16 15:43 Sulfa (Sulfonamide Allergy Hives Verified 11/12/16 15:43 Antibiotics) tramadol [From Ultram] Allergy Swelling Verified 11/12/16 15:43 of Lip/Tongue/Throat Review of Systems: CONSTITUTIONAL: No weight loss, fever, chills, weakness or fatigue. HEENT: Eyes: No visual changes. Ears, Nose, Throat: No hearing loss, difficulty talking or unable to swallow. SKIN: No rash or itching. CARDIOVASCULAR: No chest pain, chest pressure or chest discomfort. No palpitations or edema. RESPIRATORY: shortness of breath; swelling of the lower extremities GASTROINTESTINAL: No anorexia, nausea, vomiting or diarrhea. No abdominal pain or blood. GENITOURINARY: No burning on urination or hematuria. NEUROLOGICAL: No headache, dizziness, syncope, paralysis, ataxia, numbness or tingling in the extremities. No change in bowel or bladder control. MUSCULOSKELETAL: No muscle pain, back pain, joint pain or stiffness. 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: Reports: non-contributory - Social History Smoking Status: Never smoker Smokeless Tobacco Status: No Alcohol use: Reports: rarely Drug use: Reports: none Physical Exam General appearance: NAD, conversant Eyes: anicteric sclerae, moist conjunctivae; PERRL HENT: Atraumatic; oropharynx clear with moist mucous membranes and no mucosal ulcerations Neck: Normal inspection; Trachea midline; FROM, supple Lungs: Diminished lung sounds bilaterally CV: RRR, no MRGs Abdomen: Soft, non-tender; no rebound or gaurding Extremities: Significant edema to both legs Skin: Normal temperature; no rash, ulcers or lesions Psych: Appropriate mood and affect Neuro: alert and oriented to person, place and time - General Limitations: no limitations General appearance: alert Course - Reevaluation(s) Reevaluation #1: Discussed with the patient. She states that sometimes she will need to be placed on a Lasix drip if her other medications do not work. She did not take her third dose of Lasix today. This will be given in the emergency department. - Consultations Consultation #1: Discussed with [facility] transfer center. Patient accepted for admission. Patient's bed will not be ready until tomorrow. Consultation #2: Discussed with the on-call power driven brush maker Dr. Wolff. Dr. Wloff states that he is very familiar with the patient. She typically will be admitted for approximately a week. He states that they do not change any of her medications. States that he does not recommend any medication changes at this time. He will give us a discharge summary from her last admission to help guide her prolonged stay here at [facility]. Lasix drip of 15 mg/kg was used last admission. Consultation #3: Discussed with the hospitalist at [facility]. Patient will be admitted for observation until a bed is assigned at [facility]. Vital Signs Temperature 99.0 F 01/29/17 20:06 Pulse Rate 77 01/29/17 20:06 Respiratory Rate 20 01/29/17 20:06 Blood Pressure 157/72 01/29/17 20:06 O2 Sat by Pulse Oximetry 100 01/29/17 20:06 Temperature 97.9 F 01/30/17 01:38 Pulse Rate 78 01/30/17 01:38 Respiratory Rate 18 01/30/17 01:38 Blood Pressure 132/78 01/30/17 01:38 O2 Sat by Pulse Oximetry 99 01/30/17 01:59 Oxygen Delivery Oxygen Delivery Nasal Cannula Shortness of Breath/Dyspnea - Medical Records Medical records reviewed: Yes I reviewed the patient's medical records. - Lab Data Lab results reviewed: Yes I reviewed the patient's lab results. Result diagrams: 01/29/17 20:32 01/29/17 20:32 Lab Results 01/29/17 01/29/17 01/29/17 Range/Units 20:32 20:32 20:32 WBC 7.7 (4.3-11.1) K/mcL RBC 3.30 L (3.82-4.97) M/mcL Hgb 9.1 L (11.5-15.4) g/dL Hct 29.4 L (35.3-44.9) % MCV 89.1 (83.0-100.0) fL MCH 27.6 L (28.0-33.3) pg MCHC 31.0 L (31.6-35.5) g/dL RDW 17.3 H (11.5-14.5) % Plt Count 206 (140-400) K/mcL MPV 11.6 (9.4-12.4) fL Immature Gran % 0.3 (0-4) % Seg Neutrophils % 72.2 % Lymphocytes % 18.6 % Monocytes % 6.2 % Eosinophils % 2.3 % Basophils % 0.4 % Neutrophils # 5.6 (1.6-8.9) K/mcL Lymphocytes # 1.4 (0.6-4.6) K/mcL Monocytes # 0.5 (0.0-1.3) K/mcL Eosinophils # 0.2 (0.0-0.6) K/mcL Basophils # 0.0 (0.0-0.2) K/mcL Sodium 137 (136-145) mEq/L Potassium 3.7 (3.5-4.5) mEq/L Chloride 94 L (98-109) mEq/L Carbon Dioxide 32 H (19-29) mEq/L BUN 24 H (7-20) mg/dL Creatinine 1.10 (0.57-1.11) mg/dL Est GFR ( Amer) > 60 (> 60) Est GFR (Non-Af Amer) 54 L (> 60) BUN/Creatinine Ratio 22 (6-26) Glucose 318 H (70-99) mg/dL Calculated Osmolality 300 (280-300) Calcium 8.6 (8.6-10.8) mg/dL Troponin I 0.00 (0-0.03) ng/mL B-Natriuretic Peptide (0-100) pg/mL 01/29/17 Range/Units 20:32 WBC (4.3-11.1) K/mcL RBC (3.82-4.97) M/mcL Hgb (11.5-15.4) g/dL Hct (35.3-44.9) % MCV (83.0-100.0) fL MCH (28.0-33.3) pg MCHC (31.6-35.5) g/dL RDW (11.5-14.5) % Plt Count (140-400) K/mcL MPV (9.4-12.4) fL Immature Gran % (0-4) % Seg Neutrophils % % Lymphocytes % % Monocytes % % Eosinophils % % Basophils % % Neutrophils # (1.6-8.9) K/mcL Lymphocytes # (0.6-4.6) K/mcL Monocytes # (0.0-1.3) K/mcL Eosinophils # (0.0-0.6) K/mcL Basophils # (0.0-0.2) K/mcL Sodium (136-145) mEq/L Potassium (3.5-4.5) mEq/L Chloride (98-109) mEq/L Carbon Dioxide (19-29) mEq/L BUN (7-20) mg/dL Creatinine (0.57-1.11) mg/dL Est GFR ( Amer) (> 60) Est GFR (Non-Af Amer) (> 60) BUN/Creatinine Ratio (6-26) Glucose (70-99) mg/dL Calculated Osmolality (280-300) Calcium (8.6-10.8) mg/dL Troponin I (0-0.03) ng/mL B-Natriuretic Peptide 120 H (0-100) pg/mL - Radiology Data Radiology results reviewed: Yes I reviewed the patient's radiology results. - EKG Data EKG attestation: Yes I reviewed and interpreted this EKG. EKG results narrative: EKG shows sinus rhythm with a ventricular rate of 74. OK interval 151. QRS 84. QTC 348. No significant ST elevations or depressions. No previous EKG at this time for comparison.
[2017-01-29] MEDS ORDERED: Furosemide 40 MG/4 ML VIAL IVP ONE (22:46)
[2017-01-30] MEDS ORDERED: Naloxone 0.4 MG/ML INJ IVP PRN (01:11)
[2017-01-30] MEDS ORDERED: Ondansetron ODT 4 MG TAB.RAPDIS PO PRN (01:12)
[2017-01-30] MEDS ORDERED: Nystatin POWDER 30 GM BOTTLE TP PRN (01:12)
[2017-01-30] MEDS ORDERED: ALPRAZolam 0.5 MG TABLET PO PRN (01:12)
[2017-01-30] MEDS ORDERED: Nitroglycerin 0.4 MG TAB.SUBL SL PRN (01:12)
--- NOTE | 2017-01-30 02:09 | Internal Med History&Physical ---
Date of Encounter: 01/30/17 Time of Encounter: 02:05 Assessment and Plan (1) CHF exacerbation Current visit: Yes Status: Acute CHFpEF Continue current home regimen-Lasix 100mg TID, Metolazone Strict I/O Fluid restriction Transfer per request when bed is available Qualifiers: Congestive heart failure type: unspecified congestive heart failure type Qualified Code(s): I50.9 - Heart failure, unspecified (2) HTN (hypertension) Current visit: Yes Status: Chronic Controlled, continue home meds Qualifiers: Hypertension type: essential hypertension Qualified Code(s): I10 - Essential (primary) hypertension (3) HLD (hyperlipidemia) Current visit: Yes Status: Chronic Continue home meds Qualifiers: Hyperlipidemia type: pure hypercholesterolemia Qualified Code(s): E78.00 - Pure hypercholesterolemia, unspecified; E78.0 - Pure hypercholesterolemia (4) Diabetes Current visit: Yes Status: Chronic Continue insulin ADA diet FS ACHS Qualifiers: Diabetes mellitus type: type 1 Diabetes mellitus complication status: with unspecified complications Qualified Code(s): E10.8 - Type 1 diabetes mellitus with unspecified complications (5) Chronic respiratory failure with hypoxia and hypercapnia Current visit: Yes Status: Chronic Chronic, stable, O2 sat and requirement at baseline (6) Anemia Current visit: Yes Status: Chronic Chronic, ACD, HB at baseline Qualifiers: Anemia type: iron deficiency Iron deficiency anemia type: chronic blood loss Qualified Code(s): D50.0 - Iron deficiency anemia secondary to blood loss (chronic) (7) Acquired lymphedema of lower extremity Current visit: Yes Status: Chronic chronic, stable (8) Obstructive sleep apnea Current visit: Yes Status: Chronic CPAP at night (9) Obesity Current visit: Yes Status: Chronic Chronic, lifestyle modification Qualifiers: Obesity type: due to excess calories Obesity classification: adult class 3 (BMI >= 40) Serious obesity comorbidity presence: without serious comorbidity Body mass index: BMI 70 or greater Qualified Code(s): E66.01 - Morbid ( severe) obesity due to excess calories; Z68.45 - Body mass index (BMI) 70 or greater, adult; Z68.45 - Body mass index (BMI) 70 or greater, adult; Z68.45 - Body mass index (BMI) 70 or greater, adult; Z68.45 - Body mass index (BMI) 70 or greater, adult Internal Medicine - H&P: HPI Chief complaint: Weight gain, LE edema Admitted From: Home Plans for Post Hospital Care: Home History of present illness: Ms. Hameed is a 46 year old female with Morbid Obesity, with BMI of 80, Stage IV CHF per patient, Chronic resp failure on home O2, DVT/PE on anticoagulation, chronic indwelling catheter She presented to the ER for >60lbs weight gain, worsening LE edema and shortness of breath She states she believes she is in exacerbation of her CHF and will like to be transferred to [facility] to where her associate director regulatory affairs is She denies chest pain, fever or chills, she also reports her urinary catheter has been leaking and she will like to have it changed. She denies other or GI symptoms ROS is otherwise unremarkable Past Med Surg Social Fam HX - Past Medical History Medical history: asthma, CHF, COPD, DVT, diabetes, hyperlipidemia, hypertension , peripheral artery disease, pulmonary embolus Psychiatric history: anxiety, bipolar, depression - Past Surgical History Surgical History: cholecystectomy, orthopedic, other, IVC filter, arthroscopy - Social History Smoking Status: Never smoker Smokeless Tobacco Status: No Alcohol use: none, rarely Drug use: none - Family History Sister Family Member Ethnicity: Non- Living Status: Still Living Hx Family Autoimmune Disorders: Yes (Lupus) Mother Family Member Ethnicity: Non- Living Status: Hx Family Cardiac Disorders: No Hx Family Respiratory Disorders: No Hx Family Cancer: No Hx Family GI Disorders: No Hx Family Endocrine Disorder: Yes (DM) Hx Family Neuromuscular Disorders: No Hx Family Neurologic Disorders: No Hx Family HEENT Disorders: No Hx Family Autoimmune Disorders: No Father Family Member Ethnicity: Non- Living Status: Still Living Hx Family Cardiac Disorders: Yes ([place] x2, HLD) Hx Family Cancer: Yes Hx Family GI Disorders: No Hx Family Endocrine Disorder: Yes (DM) Hx Family Neuromuscular Disorders: No Hx Family Neurologic Disorders: No Hx Family HEENT Disorders: No Hx Family Autoimmune Disorders: No Internal Medicine - H&P: Meds ALPRAZolam [Xanax 0.5 MG Tablet] 0.5 mg PO BID PRN 01/20/16 [History] Aripiprazole [Abilify] 20 mg PO DAILY 01/20/16 [History] Aspirin 81 mg PO HS 01/20/16 [History] Carvedilol 12.5 mg PO Q12H 01/20/16 [History] Docusate [Colace] 100 mg PO BID 01/20/16 [History] HYDROcodone/Acet 10/325 mg [[place] 10-325 mg] 1 tab PO Q6H PRN 01/20/16 [History] Metolazone [Zaroxolyn] 5 mg PO MOTHSA 01/20/16 [History] Nitroglycerin [Nitrostat] 0.4 mg SL Q5M PRN 01/20/16 [History] Nystatin POWDER [Nystop] 1 appl TP BID PRN 01/20/16 [History] OXcarbazepine [Oxcarbazepine] 600 mg PO BID 01/20/16 [History] Ondansetron HCl 4 mg PO Q8H PRN 01/20/16 [History] Potassium Chloride [K-Tab ER] 180 meq PO BIDWM 01/20/16 [History] Rivaroxaban [Xarelto] 20 mg PO QPM 01/20/16 [History] hydrALAZINE [HydrALAZINE] 12.5 mg PO TID 01/20/16 [History] Atorvastatin Calcium [Lipitor] 80 mg PO HS 08/05/16 [History] Benztropine [Cogentin] 1 mg PO HS 08/05/16 [History] Dicyclomine [Bentyl] 20 - 40 mg PO QID 08/05/16 [History] Esomeprazole Magnesium [Nexium] 20 mg PO QAM 08/05/16 [History] Exenatide Microspheres [Bydureon Pen] 2 mg SQ FR 08/05/16 [History] Ferrous Gluconate 324 mg PO DAILY 08/05/16 [History] Guaifenesin [Mucinex] 600 mg PO BID 08/05/16 [History] Insulin Regular U-500 [HumuLIN R U-500] 45 unit SQ QPM 08/05/16 [History] Insulin Regular U-500 [HumuLIN R U-500] 70 unit SQ 1200 08/05/16 [History] Insulin Regular U-500 [HumuLIN R U-500] 80 units SQ QAM 08/05/16 [History] Isosorbide DInitrate [Isosorbide Dinitrate] 20 mg PO TID 08/05/16 [History] Oxybutynin Chloride [Ditropan Xl] 15 mg PO DAILY 08/05/16 [History] Spironolactone [Aldactone] 50 mg PO DAILY 08/05/16 [History] Trazodone HCl 200 mg PO HS 08/05/16 [History] Albuterol Sulfate [Albuterol Inhaler] 2 puff IH Q4HR PRN #1 hfa.aer.ad 08/17/16 [Rx] Oxymetazoline [Afrin] 1 spray NS Q12HR PRN #1 bottle 11/04/16 [Rx] Furosemide [Lasix] 100 mg IVP TID 11/28/16 [History] Cefdinir [Omnicef] 300 mg PO BID #10 capsule 11/30/16 [Rx] HYDROcodone/Acet 10/325 mg [[place] 10-325 mg] 1 tab PO Q6HR PRN #3 tab 12/03/16 [ Rx] Gentamicin OPTH Soln 1 drop BOTH EYES QID #1 bottle 01/21/17 [Rx] 3 Allergy/AdvReac Type Severity Reaction Status Date / Time adhesive tape Allergy Mild skin Verified 11/12/16 15:43 irritation Amoxicillin [From Augmentin] Allergy Hives Verified 11/12/16 15:43 clavulanic acid Allergy Hives Verified 11/12/16 15:43 [From Augmentin] codeine Allergy Swelling Verified 11/12/16 15:43 of Lip/Tongue/Throat levofloxacin [From Levaquin] Allergy Hives Verified 11/12/16 15:43 silver sulfadiazine Allergy Itching Verified 11/12/16 15:43 Sulfa (Sulfonamide Allergy Hives Verified 11/12/16 15:43 Antibiotics) tramadol [From Ultram] Allergy Swelling Verified 11/12/16 15:43 of Lip/Tongue/Throat All Systems PM: A 10-system review of systems was performed and is negative for pertinent findings except as documented above in the HPI. - Constitutional Constitutional: no chills, no fever(s), no night sweats - EENT Eyes: no change in vision, no discharge, no pain, no photophobia Ears: no ear discharge, no ear pain, no tinnitus Nose, mouth and throat: no dysphagia, no nasal discharge, no neck pain, no sore throat - Cardiovascular Cardiovascular ROS IM: as per HPI - Respiratory Respiratory: as per HPI - Gastrointestinal Gastrointestinal: no abdominal pain, no diarrhea, no hematemesis, no hematochezia, no melena, no nausea, no vomiting - Genitourinary Genitourinary: as per HPI - Musculoskeletal Musculoskeletal ROS IM: no numbness, no tingling - Integumentary Integumentary IM: no rash, no unusual bruising - Neurological Neurological ROS: no confusion, no convulsions, no focal weakness, no numbness, no tingling, no tremor(s) - Hematologic/Lymphatic Hematologic/Lymphatic: no easy bruising - Constitutional Vitals: Temp Pulse Resp BP Pulse Ox 97.9 F 78 18 132/78 99 01/30/17 01:38 01/30/17 01:38 01/30/17 01:38 01/30/17 01:38 01/30/17 01:59 Gen: NAD. VSS. Morbidly Obese VSS HEENT: Moist oral mucosa Chest: R chest wall port. Surrounding dressing clean and dry. NO chest wall tenderness Heart: S1, S2, distant, due to body habitus Abdomen: Obese, not tender Extremities: Chronic venous stasis changes, non-pitting pedal edema, : Indwelling cortez with some urine mixed with purulent discharge. Multiple skin tags. Neuro: AAOX3, normal speech, no facial paralysis, moves all limbs spontaneously Internal Med - H&P Results - Labs CBC & Chem 7: 01/29/17 20:32 01/29/17 20:32
[2017-01-30] MEDS ORDERED: D5% in Water 1,000 ML IVC PRN (02:10)
[2017-01-30] MEDS ORDERED: *HR* Dextrose 50 % in Water (Syg) 50 ML SYRINGE IVP PRN (02:10)
[2017-01-30] MEDS ORDERED: Dextrose Gel 15 GM PO PRN ×2 (02:10)
[2017-01-30] MEDS: *HR* HYDROcodone/Acet 10/325 mg TABLET PO PRN ×2 (02:28→20:08)
[2017-01-30 05:40] LABS: Basophils % 0.4 %; Eosinophils # 0.2 K/mcL (0.0-0.6); Eosinophils % 1.9 %; Hemoglobin 8.5 g/dL (11.5-15.4); Immature Granulocytes % 0.3 % (0-4); Lymphocytes # 2.1 K/mcL (0.6-4.6); Lymphocytes % 26.6 %; Mean Corpuscular HGB Conc 30.4 g/dL (31.6-35.5); Mean Corpuscular Volume 88.9 fL (83.0-100.0); Mean Platelet Volume 11.3 fL (9.4-12.4); Monocytes # 0.4 K/mcL (0.0-1.3); Monocytes % 5.6 %; Neutrophils # 5.1 K/mcL (1.6-8.9); Platelet Count 189 K/mcL (140-400); Red Blood Count 3.15 M/mcL (3.82-4.97); Red Cell Distribution Width 17.9 % (11.5-14.5); Segmented Neutrophils % 65.2 %
[2017-01-30 05:49] LABS: BUN/Creatinine Ratio 24 (6-26); Blood Urea Nitrogen 25 mg/dL (7-20); Calcium 8.4 mg/dL (8.6-10.8); Carbon Dioxide 36 mEq/L (19-29); Chloride 94 mEq/L (98-109); Glucose 347 mg/dL (70-99); Osmolality,Calculated 306 (280-300); Potassium 3.7 mEq/L (3.5-4.5); Sodium 139 mEq/L (136-145); eGFR For African Americans > 60 (> 60); eGFR For Non-African Americans 56 (> 60)
[2017-01-30] MEDS ORDERED: POTASSIUM CHLORIDE PO SCH (08:00)
[2017-01-30] MEDS: OXcarbazepine 150 MG TABLET PO SCH ×2 (08:05→20:07)
[2017-01-30] MEDS: hydrALAZINE 25 MG TABLET PO SCH ×3 (08:05→20:07)
[2017-01-30] MEDS: Insulin LISPRO 300 UNITS/3 ML VIAL SQ SCH ×2 (08:06→12:45)
[2017-01-30] MEDS: Gentamicin OPTH Soln 5 ML BOTTLE BOTH EYES SCH ×4 (08:14→21:41)
[2017-01-30] MEDS ORDERED: Insulin DETEMIR 100 UNIT/ML X5UNITS SQ SCH ×2 (09:00→21:00)
[2017-01-30] MEDS ORDERED: ARIPiprazole 10 MG TABLET PO SCH (09:00)
[2017-01-30] MEDS ORDERED: Furosemide 100 MG/10 ML VIAL IVP SCH (09:00)
--- NOTE | 2017-01-30 11:29 | Discharge Summary ---
Date of Encounter: 01/30/17 Time of Encounter: 09:15 - Discharge Diagnosis (1) Acute diastolic (congestive) heart failure Priority: Primary Status: Acute (2) Acquired lymphedema of lower extremity Priority: Secondary Status: Chronic (3) Obstructive sleep apnea Priority: Secondary Status: Chronic (4) HTN (hypertension) Priority: Secondary Status: Chronic Qualifiers: Hypertension type: essential hypertension Qualified Code(s): I10 - Essential (primary) hypertension (5) HLD (hyperlipidemia) Priority: Secondary Status: Chronic Qualifiers: Hyperlipidemia type: unspecified Qualified Code(s): E78.5 - Hyperlipidemia , unspecified (6) Chronic respiratory failure with hypoxia and hypercapnia Priority: Secondary Status: Chronic (7) Morbid obesity Priority: Secondary Status: Chronic (8) History of pulmonary embolism Priority: Secondary Status: Chronic (9) Diabetes Priority: Secondary Status: Chronic Qualifiers: Diabetes mellitus type: type 1 Diabetes mellitus complication status: with kidney complications Diabetes mellitus complication detail: with chronic kidney disease Chronic kidney disease stage: stage 3 (moderate) Qualified Code(s): E10.22 - Type 1 diabetes mellitus with diabetic chronic kidney disease ; N18.3 - Chronic kidney disease, stage 3 (moderate); N18.3 - Chronic kidney disease, stage 3 (moderate) - Discharge Medications Home Medications: ALPRAZolam [Xanax 0.5 MG Tablet] 0.5 mg PO BID PRN 01/20/16 [History] Aripiprazole [Abilify] 20 mg PO DAILY 01/20/16 [History] Aspirin 81 mg PO HS 01/20/16 [History] Carvedilol 12.5 mg PO Q12H 01/20/16 [History] Docusate [Colace] 100 mg PO BID 01/20/16 [History] HYDROcodone/Acet 10/325 mg [[place] 10-325 mg] 1 tab PO Q6H PRN 01/20/16 [History] Metolazone [Zaroxolyn] 5 mg PO MOTHSA 01/20/16 [History] Nitroglycerin [Nitrostat] 0.4 mg SL Q5M PRN 01/20/16 [History] Nystatin POWDER [Nystop] 1 appl TP BID PRN 01/20/16 [History] OXcarbazepine [Oxcarbazepine] 600 mg PO BID 01/20/16 [History] Ondansetron HCl 4 mg PO Q8H PRN 01/20/16 [History] Potassium Chloride [K-Tab ER] 180 meq PO BIDWM 01/20/16 [History] Rivaroxaban [Xarelto] 20 mg PO QPM 01/20/16 [History] hydrALAZINE [HydrALAZINE] 25 mg PO TID 01/20/16 [History] Atorvastatin Calcium [Lipitor] 80 mg PO HS 08/05/16 [History] Benztropine [Cogentin] 1 mg PO HS 08/05/16 [History] Esomeprazole Magnesium [Nexium] 20 mg PO QAM 08/05/16 [History] Ferrous Gluconate 324 mg PO DAILY 08/05/16 [History] Insulin Regular U-500 [HumuLIN R U-500] 45 unit SQ QPM 08/05/16 [History] Insulin Regular U-500 [HumuLIN R U-500] 70 unit SQ 1200 08/05/16 [History] Insulin Regular U-500 [HumuLIN R U-500] 80 units SQ QAM 08/05/16 [History] Isosorbide DInitrate [Isosorbide Dinitrate] 20 mg PO TID 08/05/16 [History] Spironolactone [Aldactone] 50 mg PO DAILY 08/05/16 [History] Trazodone HCl 200 mg PO HS 08/05/16 [History] Albuterol Sulfate [Albuterol Inhaler] 2 puff IH Q4HR PRN #1 hfa.aer.ad 08/17/16 [Rx] Furosemide [Lasix] 100 mg IVP TID 11/28/16 [History] Gentamicin OPTH Soln 1 drop BOTH EYES QID #1 bottle 01/21/17 [Rx] Fluorometholone Acetate [Flarex] 1 drop OP QID 01/30/17 [History] OXcarbazepine [Trileptal] 150 mg PO QPM 01/30/17 [History] Oxybutynin [Ditropan] 5 mg PO BID 01/30/17 [History] Allergies/Adverse Reactions: 3 Allergy/AdvReac Type Severity Reaction Status Date / Time adhesive tape Allergy Mild skin Verified 11/12/16 15:43 irritation Amoxicillin [From Augmentin] Allergy Hives Verified 11/12/16 15:43 clavulanic acid Allergy Hives Verified 11/12/16 15:43 [From Augmentin] codeine Allergy Swelling Verified 11/12/16 15:43 of Lip/Tongue/Throat levofloxacin [From Levaquin] Allergy Hives Verified 11/12/16 15:43 silver sulfadiazine Allergy Itching Verified 11/12/16 15:43 Sulfa (Sulfonamide Allergy Hives Verified 11/12/16 15:43 Antibiotics) tramadol [From Ultram] Allergy Swelling Verified 11/12/16 15:43 of Lip/Tongue/Throat Date of admission: 01/30/17 00:04 Primary care physician: Linsey Ca MD Discharging clinician: Rocío Moralez Anticipated date of discharge: 01/30/17 - Patient Status Disposition: Transfer Other Condition: Fair Functional capacity at discharge: uses cane/walker Overall status at discharge: patient is not back to baseline - Discharge Instructions Instructions: Heart Failure (DC), Diabetes Mellitus Type 2 in Adults (DC) Follow Up With: Linsey Ca MD [Primary Care Provider] - - Diet and Activity Diet: diabetic diet, low fat, low cholesterol, low salt diet Hospital course: Ms. Hameed is a 46 year old female morbidly obese female with multiple medical problems, admitted with shortness of breath, with the understanding that she would be transferred to [facility] when a bed becomes available. Patient has primary care provider and cardiology at [facility] and she is on IV Lasix at home. She insists on being transferred to [facility] for further management. She was continued on IV Lasix along with spironolactone, fluid restriction, urine output monitoring. She was noted to have uncontrolled blood sugars and her insulin was being adjusted. Discussed with transfer center at [facility] and patient is medically stable for transfer when a bed becomes available. - Time Spent with Patient Total time spent providing and/or coordinating discharge services: Greater than 30 minutes (45 min) - Constitutional Vitals: Temp Pulse Resp BP Pulse Ox 97.8 F 77 18 114/69 100 01/30/17 10:34 01/30/17 10:34 01/30/17 10:34 01/30/17 10:34 01/30/17 10:34 General appearance: Present: A&O X 3, morbidly obese, answers questions appropriately - Respiratory Respiratory exam: Present: decreased breath sounds (B/L decreased air entry), CTAB. Absent: accessory muscle use, rales, rhonchi, wheezes
[2017-01-30] MEDS ORDERED: Insulin LISPRO 300 UNITS/3 ML VIAL SQ SCH ×5 (11:30→21:00)
[2017-01-30] MEDS: Furosemide 100 MG/10 ML VIAL IVP SCH ×2 (12:45→17:49)
--- NOTE | 2017-01-30 13:11 | Electrocardiograph Report ---
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
[2017-01-30] MEDS ORDERED: *HR* Rivaroxaban 10 MG TABLET PO SCH (18:00)
[2017-01-30 19:52] VITALS: BP 131/69
[2017-01-30] MEDS ORDERED: traZODone 50 MG TABLET PO SCH (21:00)
[2017-01-30] MEDS ORDERED: Aspirin 81 MG TAB.CHEW PO SCH (21:00)
[2017-01-31] MEDS ORDERED: metOLazone 5 MG TABLET PO SCH (01:12)
== END 2017-01-30 21:15 | disposition other institution (70) ==
LOC: 2ANU 20:04 → EMEROO 20:04 → SUATTDRO 01-30 00:04 → 2ANU 01-30 00:36
PROVIDERS: ADMIT Internal Medicine; ATTEND Internal Medicine

== ENCOUNTER 2017-03-26 20:43 | Inpatient (IN) ==
[2017-03-27] MEDS ORDERED: Furosemide 40 MG/4 ML VIAL IVP ONE (00:19)
--- NOTE | 2017-03-27 00:23 | Emergency Department Note ---
Disposition Clinical Impression: Shortness of breath, Near syncope Chest pain Qualifiers: Chest pain type: unspecified Qualified Code(s): R07.9 - Chest pain, unspecified Edema Qualifiers: Edema type: unspecified Qualified Code(s): R60.9 - Edema, unspecified Congestive heart failure Qualifiers: Congestive heart failure type: unspecified Congestive heart failure chronicity : chronic Qualified Code(s): I50.9 - Heart failure, unspecified Disposition: Admitted As Inpatient Condition: Good Referrals: Linsey Ca MD [Primary Care Provider] - Forms: ED Satisfaction Letter Time of Disposition: 04:51 General Adult HPI - General Chief complaint: ED Shortness of Breath/Dyspnea Stated complaint: "Urine Retention x2 Days" Time Seen by Provider: 03/27/17 00:03 Source: patient, EMS Limitations: no limitations Nursing Notes Reviewed: Yes Vital Signs Reviewed: Yes - History of Present Illness HPI Narrative: Patient is a 46-year-old female that presents to the emergency department for worsening of her shortness of breath and swelling. She states that she has a history of stage IV congestive heart failure and that her legs have been significantly swelling she has had decreased urine output today and has become more short of breath. She also reports that she is having left-sided chest pain for the past 2 days that radiates into her left arm. She states that she has had this in the past and has had to be transferred to [facility]. She states that she has tried taking nitroglycerin without any relief. States that she uses 5 L of oxygen at home. She also reports that she normally takes Lasix but that has not relieved her symptoms. Pain Scale: 8 - Related Data Home Medications Medication Instructions Recorded Confirmed ALPRAZolam [Xanax 0.5 MG Tablet] 0.5 mg PO BID PRN 01/20/16 01/30/17 Aripiprazole [Abilify] 20 mg PO DAILY 01/20/16 01/30/17 Aspirin 81 mg PO HS 01/20/16 01/30/17 Carvedilol 12.5 mg PO Q12H 01/20/16 01/30/17 Docusate [Colace] 100 mg PO BID 01/20/16 01/30/17 HYDROcodone/Acet 10/325 mg [[place] 1 tab PO Q6H PRN 01/20/16 01/30/17 10-325 mg] Metolazone [Zaroxolyn] 5 mg PO MOTHSA 01/20/16 01/30/17 Nitroglycerin [Nitrostat] 0.4 mg SL Q5M PRN 01/20/16 01/30/17 Nystatin POWDER [Nystop] 1 appl TP BID PRN 01/20/16 01/30/17 OXcarbazepine [Oxcarbazepine] 600 mg PO BID 01/20/16 01/30/17 Ondansetron HCl 4 mg PO Q8H PRN 01/20/16 01/30/17 Potassium Chloride [K-Tab ER] 180 meq PO BIDWM 01/20/16 01/30/17 Rivaroxaban [Xarelto] 20 mg PO QPM 01/20/16 01/30/17 hydrALAZINE [HydrALAZINE] 25 mg PO TID 01/20/16 01/30/17 Atorvastatin Calcium [Lipitor] 80 mg PO HS 08/05/16 01/30/17 Benztropine [Cogentin] 1 mg PO HS 08/05/16 01/30/17 Esomeprazole Magnesium [Nexium] 20 mg PO QAM 08/05/16 01/30/17 Ferrous Gluconate 324 mg PO DAILY 08/05/16 01/30/17 Insulin Regular U-500 [HumuLIN R 45 unit SQ QPM 08/05/16 01/30/17 U-500] Insulin Regular U-500 [HumuLIN R 70 unit SQ 1200 08/05/16 01/30/17 U-500] Insulin Regular U-500 [HumuLIN R 80 units SQ QAM 08/05/16 01/30/17 U-500] Isosorbide DInitrate [Isosorbide 20 mg PO TID 08/05/16 01/30/17 Dinitrate] Spironolactone [Aldactone] 50 mg PO DAILY 08/05/16 01/30/17 Trazodone HCl 200 mg PO HS 08/05/16 01/30/17 Furosemide [Lasix] 100 mg IVP TID 11/28/16 01/30/17 Fluorometholone Acetate [Flarex] 1 drop OP QID 01/30/17 01/30/17 OXcarbazepine [Trileptal] 150 mg PO QPM 01/30/17 01/30/17 Oxybutynin [Ditropan] 5 mg PO BID 01/30/17 01/30/17 Previous Rx's Medication Instructions Recorded Albuterol Sulfate [Albuterol 2 puff IH Q4HR PRN #1 hfa.aer.ad 08/17/16 Inhaler] Gentamicin OPTH Soln 1 drop BOTH EYES QID #1 bottle 01/21/17 Allergies Allergy/AdvReac Type Severity Reaction Status Date / Time adhesive tape Allergy Mild skin Verified 03/26/17 21:50 irritation Amoxicillin [From Augmentin] Allergy Hives Verified 03/26/17 21:50 clavulanic acid Allergy Hives Verified 03/26/17 21:50 [From Augmentin] codeine Allergy Swelling Verified 03/26/17 21:50 of Lip/Tongue/Throat levofloxacin [From Levaquin] Allergy Hives Verified 03/26/17 21:50 silver sulfadiazine Allergy Itching Verified 03/26/17 21:50 Sulfa (Sulfonamide Allergy Hives Verified 03/26/17 21:50 Antibiotics) tramadol [From Ultram] Allergy Swelling Verified 03/26/17 21:50 of Lip/Tongue/Throat All systems ED: reviewed and negative except as stated. Cardiovascular: Reports: chest pain Respiratory: Reports: dyspnea Musculoskeletal: Reports: other (Lower extremities patient has significant swelling in bilateral lower extremities.) Integumentary: Reports: lesions Past Medical History - Past Medical History Medical history: Reports: asthma, CHF, COPD, DVT, diabetes, hyperlipidemia, hypertension, peripheral artery disease, pulmonary embolus Surgical history: Reports: cholecystectomy, orthopedic, other, IVC filter, arthroscopy Psychiatric history: Reports: anxiety, bipolar, depression TRAINING MANAGER history: Reports: non-contributory - Social History Smoking Status: Never smoker Smokeless Tobacco Status: No Alcohol use: Reports: none Drug use: Reports: none Physical Exam - General Limitations: no limitations General appearance: alert, in no apparent distress - Head Head exam: atraumatic, normocephalic - Eye Eye exam: Present: normal appearance, EOMI - Neck Neck exam: Present: normal inspection, full ROM, trachea midline - Respiratory Respiratory exam: Present: normal lung sounds bilaterally. Absent: respiratory distress, wheezes - Cardiovascular Cardiovascular exam: Present: regular rate, normal rhythm, normal heart sounds, +S1, +S2 - Abdominal Exam Abdominal exam: Present: soft, Non-Tender, normal bowel sounds - Extremities Exam Extremities exam: Present: tenderness (Tenderness of bilateral lower extremities ), other (There is significant swelling in bilateral lower extremities. ) - Neurological Exam Neurological exam: Present: alert, oriented X3 - Psychiatric Psychiatric exam: Present: normal affect, normal mood Course Vital Signs Temperature 98.8 F 03/26/17 21:50 Pulse Rate 74 03/26/17 21:50 Respiratory Rate 18 03/26/17 21:50 Blood Pressure 129/70 03/26/17 21:50 O2 Sat by Pulse Oximetry 100 03/26/17 21:50 Temperature 98.8 F 03/26/17 21:50 Pulse Rate 75 03/27/17 00:53 Respiratory Rate 16 03/27/17 00:53 Blood Pressure 115/60 03/27/17 00:53 O2 Sat by Pulse Oximetry 100 03/27/17 00:53 Oxygen Delivery Oxygen Delivery Nasal Cannula Medical Decision Making - MDM Narrative Medical decision making narrative: Due the patient having worsening of shortness of breath and history of congestive heart failure we will get a CBC, BMP, BNP, chest x-ray EKG and troponin. We will also give the patient a dose of Lasix here in the emergency department. Patient has a chronic anemia. Troponin was negative, EKG showed a sinus rhythm at a rate of 72 bpm. Chest x-ray was negative for any acute process. BNP of 77 I informed the patient that her laboratory testing was about at her baseline and the patient states that she still is not feeling well and does not feel like that she can go home and would like to be transferred to [facility] where she has been provided care in the past for similar symptoms. She states that her blood work does not always show when she is having exacerbation of her congestive heart failure. Patient requested to be transferred to [facility] the transfer was refused due to [facility] being on a city wide diversion and stated that they have a 48 hour wait. We have redosed the patient with another dose of IV Lasix. He called and spoke to our hospitalist and they have accepted the patient to their service. The patient will be admitted to the hospital at this time. - Medical Records Medical records reviewed: Yes I reviewed the patient's medical records. - Lab Data Lab results reviewed: Yes I reviewed the patient's lab results. Result diagrams: 03/27/17 00:41 03/27/17 00:41 Lab Results 03/27/17 03/27/17 03/27/17 Range/Units 00:41 00:41 00:41 WBC 9.5 (4.3-11.1) K/mcL RBC 3.47 L (3.82-4.97) M/mcL Hgb 9.2 L (11.5-15.4) g/dL Hct 29.7 L (35.3-44.9) % MCV 85.6 (83.0-100.0) fL MCH 26.5 L (28.0-33.3) pg MCHC 31.0 L (31.6-35.5) g/dL RDW 18.3 H (11.5-14.5) % Plt Count 210 (140-400) K/mcL MPV 11.4 (9.4-12.4) fL Immature Gran % 0.4 (0-4) % Seg Neutrophils % 74.5 % Lymphocytes % 18.9 % Monocytes % 4.5 % Eosinophils % 1.4 % Basophils % 0.3 % Neutrophils # 7.1 (1.6-8.9) K/mcL Lymphocytes # 1.8 (0.6-4.6) K/mcL Monocytes # 0.4 (0.0-1.3) K/mcL Eosinophils # 0.1 (0.0-0.6) K/mcL Basophils # 0.0 (0.0-0.2) K/mcL Sodium 135 L (136-145) mEq/L Potassium 3.4 L (3.5-5.1) mEq/L Chloride 93 L (98-107) mEq/L Carbon Dioxide 32 H (23-29) mEq/L BUN 26 H (6-20) mg/dL Creatinine 1.07 (0.60-1.20) mg/dL Est GFR ( Amer) > 60 (> 60) Est GFR (Non-Af Amer) 55 L (> 60) BUN/Creatinine Ratio 24 (6-26) Glucose 298 H (70-105) mg/dL Calculated Osmolality 296 (280-300) Calcium 8.8 (8.6-10.3) mg/dL Troponin I < 0.03 (< 0.04) ng/mL B-Natriuretic Peptide (Less than 100) pg/mL 03/27/17 Range/Units 00:41 WBC (4.3-11.1) K/mcL RBC (3.82-4.97) M/mcL Hgb (11.5-15.4) g/dL Hct (35.3-44.9) % MCV (83.0-100.0) fL MCH (28.0-33.3) pg MCHC (31.6-35.5) g/dL RDW (11.5-14.5) % Plt Count (140-400) K/mcL MPV (9.4-12.4) fL Immature Gran % (0-4) % Seg Neutrophils % % Lymphocytes % % Monocytes % % Eosinophils % % Basophils % % Neutrophils # (1.6-8.9) K/mcL Lymphocytes # (0.6-4.6) K/mcL Monocytes # (0.0-1.3) K/mcL Eosinophils # (0.0-0.6) K/mcL Basophils # (0.0-0.2) K/mcL Sodium (136-145) mEq/L Potassium (3.5-5.1) mEq/L Chloride (98-107) mEq/L Carbon Dioxide (23-29) mEq/L BUN (6-20) mg/dL Creatinine (0.60-1.20) mg/dL Est GFR ( Amer) (> 60) Est GFR (Non-Af Amer) (> 60) BUN/Creatinine Ratio (6-26) Glucose (70-105) mg/dL Calculated Osmolality (280-300) Calcium (8.6-10.3) mg/dL Troponin I (< 0.04) ng/mL B-Natriuretic Peptide 77 (Less than 100) pg/mL - Radiology Data Radiology results reviewed: Yes I reviewed the patient's radiology results. Chest X-Ray 03/27/17 00:19 IMPRESSION: No acute disease. D/ / Vishal Castellanos MD / Vishal Castellanos MD Interpreting Provider: Vishal Castellanos MD - EKG Data EKG #1 EKG attestation: Yes I reviewed and interpreted this EKG. EKG results narrative: EKG shows sinus rhythm at a rate of 72 bpm, IN interval of 133, Q anabaptism 93 , QTC of 447 with a normal axis. This is compared to previous EKG on 03/11/17. Attestation Statement - Attestation Attestation: I, Keon Spears DO, examined this patient [id number] and my medical decision-making was reviewed with Dr. Yusuf Jenkins, Resident Physician. I agree with the documented findings, disposition and treatment plan as described except to the extent set forth below. Please see my progress notes for details. 46-year-old female presents to emergency room complaining of shortness of breath. She also describes decreased urinary output. Patient is well known to this facility secondary to chronic medical issues. Patient is morbidly obese and bedbound at home. She has issues with right-sided congestive heart failure. She has followed up at [facility] for these issues. Patient denies any medication changes. Denies any chest pain shortness of breath headache vision changes nausea vomiting or diarrhea prior to the events here today. Over the last 2 days she has felt that she has had decreased urinary output and weight gain. Subjectively the patient appears to be normal. Vital signs are stable. Lungs are clear. Heart is regular. Abdomen soft no guarding or rigidity. Patient has pitting edema that appears to be consistent from previous evaluations are completed personally. Patient has no signs of skin breakdown or deterioration. She is alert she is oriented she speaks in full sentences with no conversational dyspnea. Imaging workup including chest x -ray EKG labs BNP and troponin were all unremarkable at this time. Patient is unable to go home according to her. She cannot ambulate or take care of herself without significant work of breathing. Typically she is transferred to [facility]. There are currently on diversion. Patient is requesting to be transferred back to bed availability is at a shortage. Patient will have attempted admission at this facility if we are unable to admit the patient will most likely be transferred outside facility for definitive management. Acutely patient has no medical issues appear to need addressing at this time. We will continue to monitor in the emergency room control symptoms. See detailed documentation of the physical exam, medical intervention, medical decision-making, consultations and disposition and the resident physician's note. [id number] Hospitalist graciously accepted the patient here at this facility to aid and symptomatic treatment of her CHF and intermittent lightheadedness secondary to exertional dyspnea. Patient clinically is no acute lab abnormalities. She will be symptomatically controlled. Expect discharge home within 24 hours. Repeat dose of IV Lasix given at this time.
[2017-03-27 00:48] LABS: Basophils % 0.3 %; Eosinophils # 0.1 K/mcL (0.0-0.6); Eosinophils % 1.4 %; Hematocrit 29.7 % (35.3-44.9); Hemoglobin 9.2 g/dL (11.5-15.4); Immature Granulocytes % 0.4 % (0-4); Lymphocytes # 1.8 K/mcL (0.6-4.6); Lymphocytes % 18.9 %; Mean Corpuscular Hemoglobin 26.5 pg (28.0-33.3); Mean Corpuscular Volume 85.6 fL (83.0-100.0); Mean Platelet Volume 11.4 fL (9.4-12.4); Monocytes # 0.4 K/mcL (0.0-1.3); Monocytes % 4.5 %; Neutrophils # 7.1 K/mcL (1.6-8.9); Platelet Count 210 K/mcL (140-400); Red Blood Count 3.47 M/mcL (3.82-4.97); Red Cell Distribution Width 18.3 % (11.5-14.5); Segmented Neutrophils % 74.5 %
[2017-03-27 01:08] LABS: BUN/Creatinine Ratio 24 (6-26); Blood Urea Nitrogen 26 mg/dL (6-20); Calcium 8.8 mg/dL (8.6-10.3); Carbon Dioxide 32 mEq/L (23-29); Chloride 93 mEq/L (98-107); Glucose 298 mg/dL (70-105); Osmolality,Calculated 296 (280-300); Potassium 3.4 mEq/L (3.5-5.1); Sodium 135 mEq/L (136-145); eGFR For African Americans > 60 (> 60); eGFR For Non-African Americans 55 (> 60)
[2017-03-27] MEDS ORDERED: Furosemide 40 MG in 0.9 % Sodium Chloride 50 ML IVPB ONE (04:11)
[2017-03-27] MEDS ORDERED: ALPRAZolam 0.5 MG TABLET PO PRN (11:51)
[2017-03-27] MEDS ORDERED: Dextrose Gel 15 GM/37.5 ML TUBE PO PRN ×2 (11:58)
[2017-03-27] MEDS ORDERED: *HR* Dextrose 50 % in Water (Syg) 50 ML SYRINGE IVP PRN (11:58)
[2017-03-27] MEDS ORDERED: D5% in Water 1,000 ML IVC PRN (11:58)
--- NOTE | 2017-03-27 12:19 | Electrocardiograph Report ---
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
[2017-03-27] MEDS: Fluorometholone OPTH 5 ML BOTTLE BOTH EYES SCH ×3 (13:22→22:30)
[2017-03-27] MEDS: Gentamicin OPTH Soln 5 ML BOTTLE BOTH EYES SCH ×3 (13:22→22:30)
--- NOTE | 2017-03-27 14:33 | Internal Med History&Physical ---
Date of Encounter: 03/27/17 Time of Encounter: 09:30 Assessment and Plan (1) Congestive heart failure Current visit: Yes Status: Chronic Acute exacerbation of chronic diastolic heart failure continue IV Lasix at least 40 mg TID. Consider titrating up orders a Lasix gtt Consider Lasix gtt if she does not have improvement in her urine output. Fluid restriction to 1.5 L daily daily weights and input and output charting Check 2D echo. Consider cardiovascular consultation Qualifiers: Congestive heart failure type: diastolic Congestive heart failure chronicity: acute on chronic Qualified Code(s): I50.33 - Acute on chronic diastolic (congestive) heart failure (2) HTN (hypertension) Current visit: Yes Status: Chronic Qualifiers: Hypertension type: essential hypertension Qualified Code(s): I10 - Essential (primary) hypertension (3) Obesity Current visit: No Status: Chronic Dietary guidance and nutritional support provided Qualifiers: Obesity type: due to excess calories Obesity classification: adult class 3 (BMI >= 40) Serious obesity comorbidity presence: with serious comorbidity Body mass index: BMI 70 or greater Qualified Code(s): E66.01 - Morbid (severe ) obesity due to excess calories; Z68.45 - Body mass index (BMI) 70 or greater, adult; Z68.45 - Body mass index (BMI) 70 or greater, adult; Z68.45 - Body mass index (BMI) 70 or greater, adult; Z68.45 - Body mass index (BMI) 70 or greater, adult Internal Medicine - H&P: HPI Chief complaint: Weight gain and shortness of breath Admitted From: Home Plans for Post Hospital Care: Home History of present illness: Ms. Hameed is a 46 year old female with a past medical history of diastolic heart failure stage IV with most of her care received at [facility] who came in to the emergency department with fluid overload and weight gain of roughly about 60 pounds since the last 2 weeks after discharge from [facility]. Patient states he has been very thorough and compliant with her home regimen of Lasix but she still continued to gain weight and has felt like coming to the hospital. She denies any changes to her dietary regimen and she is requesting to be transferred to [facility]. In the ER she received 2 extra doses of Lasix with resultant diuresis of greater than thousands cc .she denies any chest pain and shortness of breath at the time of my examination denies any sick contacts at this point Past Med Surg Social Fam HX - Past Medical History Medical history: asthma, CHF, COPD, DVT, diabetes, GERD, hyperlipidemia, hypertension, peripheral artery disease, pulmonary embolus Psychiatric history: anxiety, bipolar, depression - Past Surgical History Surgical History: cholecystectomy, orthopedic, other, IVC filter, arthroscopy - Social History Smoking Status: Never smoker Smokeless Tobacco Status: No Alcohol use: none Drug use: none - Family History Sister Family Member Ethnicity: Non- Living Status: Still Living Hx Family Autoimmune Disorders: Yes (Lupus) Mother Family Member Ethnicity: Non- Living Status: Hx Family Cardiac Disorders: No Hx Family Respiratory Disorders: No Hx Family Cancer: No Hx Family GI Disorders: No Hx Family Endocrine Disorder: Yes (DM, dialysis) Hx Family Neuromuscular Disorders: No Hx Family Neurologic Disorders: No Hx Family HEENT Disorders: No Hx Family Autoimmune Disorders: No Father Family Member Ethnicity: Non- Living Status: Still Living Hx Family Cardiac Disorders: Yes (MIX2) Hx Family Cancer: Yes Hx Family GI Disorders: No Hx Family Endocrine Disorder: Yes (DM) Hx Family Neuromuscular Disorders: No Hx Family Neurologic Disorders: No Hx Family HEENT Disorders: No Hx Family Autoimmune Disorders: No Internal Medicine - H&P: Meds ALPRAZolam [Xanax 0.5 MG Tablet] 0.5 mg PO BID PRN 01/20/16 [History] Aripiprazole [Abilify] 20 mg PO DAILY 01/20/16 [History] Aspirin 81 mg PO HS 01/20/16 [History] Carvedilol 12.5 mg PO Q12H 01/20/16 [History] Docusate [Colace] 100 mg PO BID 01/20/16 [History] HYDROcodone/Acet 10/325 mg [Mcdowell 10-325 mg] 1 tab PO Q6H PRN 01/20/16 [History] Metolazone [Zaroxolyn] 5 mg PO MOTHSA 01/20/16 [History] Nitroglycerin [Nitrostat] 0.4 mg SL Q5M PRN 01/20/16 [History] Nystatin POWDER [Nystop] 1 appl TP BID PRN 01/20/16 [History] OXcarbazepine [Oxcarbazepine] 600 mg PO BID 01/20/16 [History] Ondansetron HCl 4 mg PO Q8H PRN 01/20/16 [History] Potassium Chloride [K-Tab ER] 180 meq PO BIDWM 01/20/16 [History] Rivaroxaban [Xarelto] 20 mg PO QPM 01/20/16 [History] hydrALAZINE [HydrALAZINE] 25 mg PO TID 01/20/16 [History] Atorvastatin Calcium [Lipitor] 80 mg PO HS 08/05/16 [History] Benztropine [Cogentin] 1 mg PO HS 08/05/16 [History] Esomeprazole Magnesium [Nexium] 20 mg PO QAM 08/05/16 [History] Ferrous Gluconate 324 mg PO DAILY 08/05/16 [History] Insulin Regular U-500 [HumuLIN R U-500] 45 unit SQ QPM 08/05/16 [History] Insulin Regular U-500 [HumuLIN R U-500] 70 unit SQ 1200 08/05/16 [History] Insulin Regular U-500 [HumuLIN R U-500] 90 units SQ QAM 08/05/16 [History] Isosorbide DInitrate [Isosorbide Dinitrate] 20 mg PO TID 08/05/16 [History] Spironolactone [Aldactone] 50 mg PO DAILY 08/05/16 [History] Trazodone HCl 200 mg PO HS 08/05/16 [History] Albuterol Sulfate [Albuterol Inhaler] 2 puff IH Q4HR PRN #1 [id number] 08/17/16 [Rx] Furosemide [Lasix] 100 mg IVP TID 11/28/16 [History] Gentamicin OPTH Soln 1 drop BOTH EYES QID #1 bottle 01/21/17 [Rx] Fluorometholone Acetate [Flarex] 1 drop OP QID 01/30/17 [History] OXcarbazepine [Trileptal] 150 mg PO QPM 01/30/17 [History] Oxybutynin [Ditropan] 5 mg PO BID 01/30/17 [History] hydroCHLOROthiazide [Hydrochlorothiazide] 1 tab PO DAILY 03/27/17 [History] 3 Allergy/AdvReac Type Severity Reaction Status Date / Time adhesive tape Allergy Mild skin Verified 03/26/17 21:50 irritation Amoxicillin [From Augmentin] Allergy Hives Verified 03/26/17 21:50 clavulanic acid Allergy Hives Verified 03/26/17 21:50 [From Augmentin] codeine Allergy Swelling Verified 03/26/17 21:50 of Lip/Tongue/Throat levofloxacin [From Levaquin] Allergy Hives Verified 03/26/17 21:50 silver sulfadiazine Allergy Itching Verified 03/26/17 21:50 Sulfa (Sulfonamide Allergy Hives Verified 03/26/17 21:50 Antibiotics) tramadol [From Ultram] Allergy Swelling Verified 03/26/17 21:50 of Lip/Tongue/Throat All Systems PM: A 10-system review of systems was performed and is negative for pertinent findings except as documented above in the HPI. Review of systems: Complete and system review of systems is checked and is negative accept in HPI - Constitutional Vitals: Temp Pulse Resp BP Pulse Ox 98.1 F 81 24 146/80 99 03/27/17 12:27 03/27/17 12:27 03/27/17 12:27 03/27/17 12:27 03/27/17 12:27 General appearance: Present: morbidly obese Exam: Moderate distress, sitting upright able to complete sentences - Head Head exam: Present: atraumatic, normocephalic - Eye Eye exam: Present: PERRL, conjuntiva pink, sclera anicteric Pupils: Present: PERRL - Respiratory Additional comments: Scattered crackles appreciated across both the base of lung yan. No rhonchi no wheezing - Cardiovascular Additional comments: JVD not clearly appreciated due to bodily habitus S1 S2 normal no tachycardia no murmurs Gallops - Extremities Exam Extremities exam: Present: pedal edema, warm, radial pulses palpable and symmetrical Additional comments: Bilateral lower extremity extensive 3+ pitting edema with chronic venous stasis changes - Neurological Exam Neurological exam: Present: CN II-XII intact, oriented X3, no focal deficits. Absent: pronater drift, facial droop, speech deficit Internal Med - H&P Results - Labs CBC & Chem 7: 03/27/17 00:41 03/27/17 00:41
[2017-03-27] MEDS: hydrALAZINE 25 MG TABLET PO SCH ×2 (16:05→22:27)
[2017-03-27] MEDS ORDERED: Insulin LISPRO 300 UNITS/3 ML VIAL SQ SCH (16:30)
[2017-03-27] MEDS: *HR* Rivaroxaban 10 MG TABLET PO SCH (17:40)
[2017-03-27] MEDS: Furosemide 40 MG/4 ML VIAL IVP SCH (17:40)
[2017-03-27] MEDS: Insulin LISPRO 300 UNITS/3 ML VIAL SQ SCH ×3 (17:40→22:35)
[2017-03-27] MEDS ORDERED: Perflutren Lipid Microsphere 1.3 ML in 0.9 % Sodium Chloride 8.7 ML IVP ONE (18:50)
[2017-03-27] MEDS ORDERED: Perflutren Lipid Microsphere 2 ML VIAL ONE (18:59)
[2017-03-27] MEDS ORDERED: OXcarbazepine 150 MG TABLET PO SCH (21:00)
[2017-03-27] MEDS: Aspirin 81 MG TAB.CHEW PO SCH (22:13)
[2017-03-27] MEDS: OXcarbazepine 150 MG TABLET PO SCH (22:29)
[2017-03-28] MEDS: *HR* HYDROcodone/Acet 10/325 mg TABLET PO PRN ×2 (00:27→09:15)
[2017-03-28] MEDS: traZODone 50 MG TABLET PO SCH ×2 (00:28→21:58)
[2017-03-28] MEDS ORDERED: traZODone 50 MG TABLET PO ONE (00:30)
[2017-03-28 01:56] LABS: Hemoglobin A1C 7.2 %
[2017-03-28] MEDS: ARIPiprazole 10 MG TABLET PO SCH (09:02)
[2017-03-28] MEDS: Furosemide 40 MG/4 ML VIAL IVP SCH (09:02)
[2017-03-28] MEDS: hydroCHLOROthiazide 25 MG TABLET PO SCH (09:02)
[2017-03-28] MEDS: OXcarbazepine 150 MG TABLET PO SCH ×3 (09:03→22:16)
[2017-03-28] MEDS: hydrALAZINE 25 MG TABLET PO SCH ×3 (09:03→21:58)
[2017-03-28] MEDS: Fluorometholone OPTH 5 ML BOTTLE BOTH EYES SCH ×4 (09:04→22:06)
[2017-03-28] MEDS: Insulin LISPRO 300 UNITS/3 ML VIAL SQ SCH ×7 (09:05→22:09)
[2017-03-28] MEDS: Gentamicin OPTH Soln 5 ML BOTTLE BOTH EYES SCH ×4 (09:05→22:07)
[2017-03-28] MEDS ORDERED: Furosemide 480 MG in D5% in Water 192 ML IVC SCH (11:15)
--- NOTE | 2017-03-28 11:18 | Internal Med Progress Note ---
Date of Encounter: 03/28/17 Time of Encounter: 11:16 - Assessment and plan (1) Congestive heart failure Current Visit: Yes Status: Chronic Assessment and plan: Acute on chronic diastolic CHF exacerbation, the patient mentions that she has history of end-stage heart failure Start Lasix drip, strict I's and O's and daily weight Fluid restriction of 1.5 L Echocardiac shows an ejection fraction of 65% Qualifiers: Congestive heart failure type: diastolic Congestive heart failure chronicity: acute on chronic Qualified Code(s): I50.33 - Acute on chronic diastolic (congestive) heart failure (2) Acquired lymphedema of lower extremity Current Visit: No Status: Chronic (3) HTN (hypertension) Current Visit: Yes Status: Chronic Assessment and plan: Stable Qualifiers: Hypertension type: essential hypertension Qualified Code(s): I10 - Essential (primary) hypertension (4) Hypokalemia Current Visit: No Status: Chronic Assessment and plan: Replete as needed She mentions that she is on the high dose of 100 mEq of potassium twice a day (5) Diabetes mellitus type 1 Current Visit: No Status: Chronic Assessment and plan: Continue insulin Qualifiers: Diabetes mellitus complication status: with kidney complications Diabetes mellitus complication detail: with chronic kidney disease Chronic kidney disease stage: stage 3 (moderate) Qualified Code(s): E10.22 - Type 1 diabetes mellitus with diabetic chronic kidney disease; N18.3 - Chronic kidney disease, stage 3 (moderate) (6) Acute diastolic (congestive) heart failure Current Visit: No Status: Acute (7) History of pulmonary embolism Current Visit: No Status: Chronic Assessment and plan: Continue Xarelto (8) Anemia Current Visit: No Status: Chronic Assessment and plan: Stable Qualifiers: Anemia type: iron deficiency Iron deficiency anemia type: chronic blood loss Qualified Code(s): D50.0 - Iron deficiency anemia secondary to blood loss (chronic) - Subjective Interval history: Still feeling very short of breath, denies any chest pain, no abdominal pain, no further loose bowel movements, no fevers or chills. - Constitutional Vitals: Temp Pulse Resp BP Pulse Ox 98.2 F 75 18 126/66 100 03/28/17 08:00 03/28/17 08:00 03/28/17 08:00 03/28/17 08:00 03/28/17 08:00 General appearance: Present: A&O X 3, morbidly obese - Head Head exam: Present: atraumatic, normocephalic - Eye Eye exam: Present: PERRL, conjuntiva pink, sclera anicteric Pupils: Present: PERRL - Neck Neck exam general surgery: Present: supple, trachea midline. Absent: lymphadenopathy - Respiratory Respiratory exam: Present: CTAB, rales. Absent: accessory muscle use, rhonchi, wheezes - Cardiovascular Cardiovascular exam: Present: RRR, +S1, +S2. Absent: diastolic murmur, gallop, rubs, systolic murmur - GI/Abdominal GI/Abdominal exam: Present: distended, normal bowel sounds, soft, no peritoneal signs. Absent: tenderness - Extremities Exam Extremities exam: Present: pedal edema (+3 pitting edema in both lower extremities with chronic changes, Dewitt catheter in place), warm, radial pulses palpable and symmetrical. Absent: calf tenderness, cyanotic - Neurological Exam Neurological exam: Present: CN II-XII intact, oriented X3, no focal deficits. Absent: pronater drift, facial droop, speech deficit - Skin Skin exam: Present: dry, intact Internal Medicine: Result - Labs CBC & Chem 7: 03/27/17 00:41 03/27/17 00:41 - Impressions Impressions Echocardiogram Limited Views 03/27/17 14:42 Impressions: LVEF 65%. Atypical septal motion - unclear etiology. Definity echo contrast was used. Normal right ventricular structure and function. Left Ventricular Wall Motion: Rest Echo Findings All wall segments showed normal motion. Findings: Study Quality * Technically adequate exam. ECG Findings * Normal sinus rhythm. Left Ventricle * LVEF 65%. * Atypical septal motion - unclear etiology. * Definity echo contrast was used. Right Ventricle * Normal right ventricular structure and function. Consult Discharge Plan - Plan Referrals: Linsey Ca MD [Primary Care Provider] -
[2017-03-28 12:32] LABS: Bilirubin,Urine Negative (Negative); Blood,Urine Large (Negative); Clarity,Urine Cloudy (Clear); Color,Urine Yellow (Yellow); Glucose,Urine (UA) Normal (Normal); Ketones,Urine Negative (Negative); Leukocyte Esterase,Urine Moderate (Negative); Nitrite,Urine Positive (Negative); Protein,Urine Negative (Neg-Trace); Specific Gravity,Urine 1.021 (1.010-1.025); Urobilinogen,Urine Normal (Normal)
[2017-03-28 12:36] LABS: Bacteria,Urine Many per hpf (None-Few); Hyaline Casts,Urine None Seen per lpf (None-Few); Squamous Epithelial Cell,Urine Moderate per lpf (None-Few); WBC,Urine 30-50 per hpf (0-3)
[2017-03-28] MEDS: Furosemide 480 MG in D5% in Water 192 ML IVC SCH (14:33)
[2017-03-28] MEDS: Ondansetron 4 MG/2 ML VIAL IVP PRN (16:08)
[2017-03-28] MEDS: *HR* Rivaroxaban 10 MG TABLET PO SCH (17:17)
[2017-03-28] MEDS: Magnesium Oxide 400 MG TABLET PO SCH (21:58)
[2017-03-28] MEDS: Aspirin 81 MG TAB.CHEW PO SCH (22:03)
[2017-03-29 04:06] LABS: BUN/Creatinine Ratio 24 (6-26); Blood Urea Nitrogen 26 mg/dL (6-20); Calcium 8.7 mg/dL (8.6-10.3); Carbon Dioxide 38 mEq/L (23-29); Chloride 96 mEq/L (98-107); Glucose 207 mg/dL (70-105); Osmolality,Calculated 303 (280-300); Sodium 141 mEq/L (136-145); eGFR For African Americans > 60 (> 60); eGFR For Non-African Americans 55 (> 60)
[2017-03-29] MEDS: Magnesium Oxide 400 MG TABLET PO SCH ×2 (08:27→21:03)
[2017-03-29] MEDS: hydroCHLOROthiazide 25 MG TABLET PO SCH (08:27)
[2017-03-29] MEDS: hydrALAZINE 25 MG TABLET PO SCH ×3 (08:27→21:03)
[2017-03-29] MEDS: OXcarbazepine 150 MG TABLET PO SCH ×3 (08:28→21:02)
[2017-03-29] MEDS: Gentamicin OPTH Soln 5 ML BOTTLE BOTH EYES SCH ×2 (08:29→12:17)
[2017-03-29] MEDS: Fluorometholone OPTH 5 ML BOTTLE BOTH EYES SCH (08:29)
[2017-03-29] MEDS: ARIPiprazole 10 MG TABLET PO SCH (08:29)
[2017-03-29] MEDS: Insulin LISPRO 300 UNITS/3 ML VIAL SQ SCH ×7 (08:32→21:03)
[2017-03-29] MEDS: *HR* HYDROcodone/Acet 10/325 mg TABLET PO PRN (11:48)
[2017-03-29] MEDS: Furosemide 480 MG in D5% in Water 192 ML IVC SCH ×2 (12:17→14:52)
[2017-03-29] MEDS ORDERED: Nystatin POWDER 30 GM BOTTLE TP PRN (13:01)
[2017-03-29] MEDS ORDERED: Saline Nasal Spray 44 ML BOTTLE NS PRN (15:07)
--- NOTE | 2017-03-29 15:11 | Internal Med Progress Note ---
Date of Encounter: 03/29/17 Time of Encounter: 15:09 - Assessment and plan (1) Congestive heart failure Current Visit: Yes Status: Chronic Assessment and plan: Acute on chronic diastolic CHF exacerbation, the patient mentions that she has history of end-stage heart failure Continue Lasix drip, strict I's and O's and daily weight Fluid restriction of 1.5 L Echocardiac shows an ejection fraction of 65% Qualifiers: Congestive heart failure type: diastolic Congestive heart failure chronicity: acute on chronic Qualified Code(s): I50.33 - Acute on chronic diastolic (congestive) heart failure (2) Acquired lymphedema of lower extremity Current Visit: No Status: Chronic (3) HTN (hypertension) Current Visit: Yes Status: Chronic Assessment and plan: Stable Qualifiers: Hypertension type: essential hypertension Qualified Code(s): I10 - Essential (primary) hypertension (4) Hypokalemia Current Visit: No Status: Chronic Assessment and plan: Replete as needed She mentions that she is on the high dose of 100 mEq of potassium twice a day (5) Diabetes mellitus type 1 Current Visit: No Status: Chronic Assessment and plan: Continue insulin Qualifiers: Diabetes mellitus complication status: with kidney complications Diabetes mellitus complication detail: with chronic kidney disease Chronic kidney disease stage: stage 3 (moderate) Qualified Code(s): E10.22 - Type 1 diabetes mellitus with diabetic chronic kidney disease; N18.3 - Chronic kidney disease, stage 3 (moderate) (6) Acute diastolic (congestive) heart failure Current Visit: No Status: Acute (7) History of pulmonary embolism Current Visit: No Status: Chronic Assessment and plan: Continue Xarelto (8) Anemia Current Visit: No Status: Chronic Assessment and plan: Stable Qualifiers: Anemia type: iron deficiency Iron deficiency anemia type: chronic blood loss Qualified Code(s): D50.0 - Iron deficiency anemia secondary to blood loss (chronic) - Subjective Interval history: Feeling less short of breath, denies any chest pain, no abdominal pain, no further loose bowel movements, no fevers or chills. - Constitutional Vitals: Temp Pulse Resp BP Pulse Ox 97.8 F 65 19 144/78 97 03/29/17 06:28 03/29/17 11:00 03/29/17 11:00 03/29/17 11:00 03/29/17 11:00 General appearance: Present: A&O X 3, morbidly obese Exam: - Head Head exam: Present: atraumatic, normocephalic - Eye Eye exam: Present: PERRL, conjuntiva pink, sclera anicteric Pupils: Present: PERRL - Neck Neck exam general surgery: Present: supple, trachea midline. Absent: lymphadenopathy - Respiratory Respiratory exam: Present: CTAB, rales. Absent: accessory muscle use, rhonchi, wheezes - Cardiovascular Cardiovascular exam: Present: RRR, +S1, +S2. Absent: diastolic murmur, gallop, rubs, systolic murmur - GI/Abdominal GI/Abdominal exam: Present: distended, normal bowel sounds, soft, no peritoneal signs. Absent: tenderness - Extremities Exam Extremities exam: Present: pedal edema (+3 pitting edema in both lower extremities with chronic changes, Dewitt catheter in place), warm, radial pulses palpable and symmetrical. Absent: calf tenderness, cyanotic - Neurological Exam Neurological exam: Present: CN II-XII intact, oriented X3, no focal deficits. Absent: pronater drift, facial droop, speech deficit - Skin Skin exam: Present: dry, intact Internal Medicine: Result - Labs CBC & Chem 7: 03/27/17 00:41 03/29/17 03:30 Labs: BMP 03/29/17 03:30 Sodium 141 Potassium 4.0 Chloride 96 L Carbon Dioxide 38 H BUN 26 H Creatinine 1.08 Glucose 207 H Calcium 8.7 Consult Discharge Plan - Plan Referrals: Linsey Ca MD [Primary Care Provider] -
[2017-03-29] MEDS: *HR* Rivaroxaban 10 MG TABLET PO SCH (17:33)
[2017-03-29] MEDS: Budesonide/Formoterol 80/4.5 MDI IH SCH (20:27)
[2017-03-29] MEDS: Aspirin 81 MG TAB.CHEW PO SCH (21:02)
[2017-03-29] MEDS: traZODone 50 MG TABLET PO SCH (21:06)
[2017-03-30 05:12] LABS: Calcium 8.7 mg/dL (8.6-10.3); Potassium 3.8 mEq/L (3.5-5.1)
[2017-03-30] MEDS: ARIPiprazole 10 MG TABLET PO SCH (08:18)
[2017-03-30] MEDS: hydrALAZINE 25 MG TABLET PO SCH ×3 (08:19→21:50)
[2017-03-30] MEDS: Magnesium Oxide 400 MG TABLET PO SCH ×2 (08:20→21:50)
[2017-03-30] MEDS: hydroCHLOROthiazide 25 MG TABLET PO SCH (08:20)
[2017-03-30] MEDS: OXcarbazepine 150 MG TABLET PO SCH ×3 (08:20→21:56)
[2017-03-30] MEDS: Insulin LISPRO 300 UNITS/3 ML VIAL SQ SCH ×7 (08:44→21:51)
[2017-03-30] MEDS: Budesonide/Formoterol 80/4.5 MDI IH SCH ×2 (09:25→20:18)
[2017-03-30] MEDS: Ondansetron 4 MG/2 ML VIAL IVP PRN ×2 (11:02)
--- NOTE | 2017-03-30 12:08 | Internal Med Progress Note ---
Date of Encounter: 03/30/17 Time of Encounter: 12:06 - Assessment and plan (1) Congestive heart failure Current Visit: Yes Status: Chronic Assessment and plan: Acute on chronic diastolic CHF exacerbation, the patient mentions that she has history of end-stage heart failure Continue Lasix drip, decreased rate down to 15 mg per hour, strict I's and O's and daily weight Fluid restriction of 1.8 L, fluid restriction was increased as creatinine levels are rising Echocardiac shows an ejection fraction of 65% Qualifiers: Congestive heart failure type: diastolic Congestive heart failure chronicity: acute on chronic Qualified Code(s): I50.33 - Acute on chronic diastolic (congestive) heart failure (2) Acquired lymphedema of lower extremity Current Visit: No Status: Chronic (3) HTN (hypertension) Current Visit: Yes Status: Chronic Assessment and plan: Stable Qualifiers: Hypertension type: essential hypertension Qualified Code(s): I10 - Essential (primary) hypertension (4) Hypokalemia Current Visit: No Status: Chronic Assessment and plan: Replete as needed She mentions that she is on the high dose of 100 mEq of potassium twice a day (5) Diabetes mellitus type 1 Current Visit: No Status: Chronic Assessment and plan: Continue insulin Qualifiers: Diabetes mellitus complication status: with kidney complications Diabetes mellitus complication detail: with chronic kidney disease Chronic kidney disease stage: stage 3 (moderate) Qualified Code(s): E10.22 - Type 1 diabetes mellitus with diabetic chronic kidney disease; N18.3 - Chronic kidney disease, stage 3 (moderate) (6) Acute diastolic (congestive) heart failure Current Visit: No Status: Acute (7) History of pulmonary embolism Current Visit: No Status: Chronic Assessment and plan: Continue Xarelto (8) Anemia Current Visit: No Status: Chronic Assessment and plan: Stable Qualifiers: Anemia type: iron deficiency Iron deficiency anemia type: chronic blood loss Qualified Code(s): D50.0 - Iron deficiency anemia secondary to blood loss (chronic) - Subjective Interval history: Feeling slightly better, less short of breath, denies any chest pain, no abdominal pain, no further loose bowel movements, no fevers or chills. - Constitutional Vitals: Temp Pulse Resp BP Pulse Ox 98.2 F 68 16 124/77 93 03/30/17 11:14 03/30/17 11:14 03/30/17 11:14 03/30/17 11:14 03/30/17 11:14 General appearance: Present: A&O X 3, morbidly obese - Head Head exam: Present: atraumatic, normocephalic - Eye Eye exam: Present: PERRL, conjuntiva pink, sclera anicteric Pupils: Present: PERRL - Neck Neck exam general surgery: Present: supple, trachea midline. Absent: lymphadenopathy Additional comments: Right upper chest central line - Respiratory Respiratory exam: Present: decreased breath sounds, CTAB, rales (Fine bibasilar crackles). Absent: accessory muscle use, rhonchi, wheezes - Cardiovascular Cardiovascular exam: Present: RRR, +S1, +S2. Absent: diastolic murmur, gallop, rubs, systolic murmur - GI/Abdominal GI/Abdominal exam: Present: normal bowel sounds, soft, no peritoneal signs. Absent: distended, tenderness - Extremities Exam Extremities exam: Present: pedal edema (+3 pitting edema in both lower extremities with chronic changes), warm, radial pulses palpable and symmetrical. Absent: calf tenderness, cyanotic - Neurological Exam Neurological exam: Present: CN II-XII intact, oriented X3, no focal deficits. Absent: pronater drift, facial droop, speech deficit - Skin Skin exam: Present: dry, intact Internal Medicine: Result - Labs CBC & Chem 7: 03/27/17 00:41 03/30/17 04:43 Labs: BMP 03/30/17 04:43 Sodium 141 Potassium 3.8 Chloride 94 L Carbon Dioxide 41 H* BUN 34 H Creatinine 1.33 H Glucose 167 H Calcium 8.7 Consult Discharge Plan - Plan Referrals: Linsey Ca MD [Primary Care Provider] -
[2017-03-30] MEDS ORDERED: Furosemide 480 MG in D5% in Water 192 ML IVC SCH (13:00)
[2017-03-30] MEDS: *HR* Rivaroxaban 10 MG TABLET PO SCH (17:38)
[2017-03-30] MEDS: Aspirin 81 MG TAB.CHEW PO SCH (21:50)
[2017-03-30] MEDS: traZODone 50 MG TABLET PO SCH (22:54)
[2017-03-31] MEDS: Ondansetron 4 MG/2 ML VIAL IVP PRN (03:58)
[2017-03-31 04:25] LABS: Calcium 8.9 mg/dL (8.6-10.3)
[2017-03-31] MEDS: Budesonide/Formoterol 80/4.5 MDI IH SCH ×2 (08:09→22:05)
[2017-03-31] MEDS: ARIPiprazole 10 MG TABLET PO SCH (08:24)
[2017-03-31] MEDS: Magnesium Oxide 400 MG TABLET PO SCH ×2 (08:25→20:15)
[2017-03-31] MEDS: hydrALAZINE 25 MG TABLET PO SCH ×3 (08:25→20:15)
[2017-03-31] MEDS: hydroCHLOROthiazide 25 MG TABLET PO SCH (08:25)
[2017-03-31] MEDS: OXcarbazepine 150 MG TABLET PO SCH ×3 (08:25→20:14)
[2017-03-31] MEDS: Insulin LISPRO 300 UNITS/3 ML VIAL SQ SCH ×7 (08:41→22:29)
[2017-03-31] MEDS ORDERED: MOM Conc 10 ML UD.LIQ PO PRN (12:06)
--- NOTE | 2017-03-31 12:18 | Internal Med Progress Note ---
Date of Encounter: 03/31/17 Time of Encounter: 12:15 - Assessment and plan (1) Congestive heart failure Current Visit: Yes Status: Chronic Assessment and plan: Acute on chronic diastolic CHF exacerbation, the patient mentions that she has history of end-stage heart failure Continue Lasix drip, decrease rate down to 10 mg per hour, strict I's and O's and daily weight Fluid restriction back to 2 L/24h, fluid restriction was increased as creatinine levels are rising, the patient was explained that she is getting alkalotic but prefers to continue diuresis with drip, the option to go back to her regular dose was given Echocardiac shows an ejection fraction of 65% Qualifiers: Congestive heart failure type: diastolic Congestive heart failure chronicity: acute on chronic Qualified Code(s): I50.33 - Acute on chronic diastolic (congestive) heart failure (2) Acquired lymphedema of lower extremity Current Visit: No Status: Chronic (3) HTN (hypertension) Current Visit: Yes Status: Chronic Assessment and plan: Stable Qualifiers: Hypertension type: essential hypertension Qualified Code(s): I10 - Essential (primary) hypertension (4) Hypokalemia Current Visit: No Status: Chronic Assessment and plan: Replete as needed She mentions that she is on the high dose of 100 mEq of potassium twice a day (5) Diabetes mellitus type 1 Current Visit: No Status: Chronic Assessment and plan: Continue insulin Qualifiers: Diabetes mellitus complication status: with kidney complications Diabetes mellitus complication detail: with chronic kidney disease Chronic kidney disease stage: stage 3 (moderate) Qualified Code(s): E10.22 - Type 1 diabetes mellitus with diabetic chronic kidney disease; N18.3 - Chronic kidney disease, stage 3 (moderate) (6) Acute diastolic (congestive) heart failure Current Visit: No Status: Acute (7) History of pulmonary embolism Current Visit: No Status: Chronic Assessment and plan: Continue Xarelto (8) Anemia Current Visit: No Status: Chronic Assessment and plan: Stable Qualifiers: Anemia type: iron deficiency Iron deficiency anemia type: chronic blood loss Qualified Code(s): D50.0 - Iron deficiency anemia secondary to blood loss (chronic) - Subjective Interval history: Feeling better, less short of breath, but she says that her face is a still swollen and is not quite back to her baseline, denies any chest pain, no abdominal pain, no further loose bowel movements, no fevers or chills. - Constitutional Vitals: Temp Pulse Resp BP Pulse Ox 98.6 F 82 16 136/88 99 03/31/17 06:35 03/31/17 06:35 03/31/17 08:09 03/31/17 06:35 03/31/17 08:09 General appearance: Present: A&O X 3, morbidly obese Exam: - Head Head exam: Present: atraumatic, normocephalic - Eye Eye exam: Present: PERRL, conjuntiva pink, sclera anicteric Pupils: Present: PERRL - Neck Neck exam general surgery: Present: supple, trachea midline. Absent: lymphadenopathy Additional comments: Right upper chest central line - Respiratory Respiratory exam: Present: decreased breath sounds, CTAB, rales (Fine bibasilar crackles). Absent: accessory muscle use, rhonchi, wheezes - Cardiovascular Cardiovascular exam: Present: RRR, +S1, +S2. Absent: diastolic murmur, gallop, rubs, systolic murmur - GI/Abdominal GI/Abdominal exam: Present: normal bowel sounds, soft, no peritoneal signs. Absent: distended, tenderness - Extremities Exam Extremities exam: Present: pedal edema (+3 pitting edema in both lower extremities with chronic changes), warm, radial pulses palpable and symmetrical. Absent: calf tenderness, cyanotic Dewitt catheter in place - Neurological Exam Neurological exam: Present: CN II-XII intact, oriented X3, no focal deficits. Absent: pronater drift, facial droop, speech deficit - Skin Skin exam: Present: dry, intact Internal Medicine: Result - Labs CBC & Chem 7: 03/27/17 00:41 03/31/17 03:55 Labs: BMP 03/31/17 03:55 Sodium 143 Potassium 4.0 Chloride 94 L Carbon Dioxide 41 H* BUN 44 H Creatinine 1.45 H Glucose 215 H Calcium 8.9 Consult Discharge Plan - Plan Referrals: Linsey Ca MD [Primary Care Provider] -
[2017-03-31] MEDS: Furosemide 480 MG in D5% in Water 192 ML IVC SCH (12:53)
[2017-03-31] MEDS: *HR* HYDROcodone/Acet 10/325 mg TABLET PO PRN (15:45)
[2017-03-31] MEDS: *HR* Rivaroxaban 10 MG TABLET PO SCH (17:21)
[2017-03-31] MEDS: Aspirin 81 MG TAB.CHEW PO SCH (20:15)
[2017-03-31] MEDS: traZODone 50 MG TABLET PO SCH (22:29)
[2017-04-01 05:20] LABS: Hematocrit 30.9 % (35.3-44.9); Hemoglobin 9.2 g/dL (11.5-15.4); Mean Corpuscular HGB Conc 29.8 g/dL (31.6-35.5); Mean Corpuscular Hemoglobin 26.5 pg (28.0-33.3); Platelet Count 194 K/mcL (140-400); Red Blood Count 3.47 M/mcL (3.82-4.97); Red Cell Distribution Width 18.5 % (11.5-14.5)
[2017-04-01 06:25] LABS: Calcium 9.2 mg/dL (8.6-10.3); Potassium 3.9 mEq/L (3.5-5.1)
[2017-04-01] MEDS: OXcarbazepine 150 MG TABLET PO SCH ×3 (08:55→20:22)
[2017-04-01] MEDS: hydrALAZINE 25 MG TABLET PO SCH ×3 (08:55→20:10)
[2017-04-01] MEDS: hydroCHLOROthiazide 25 MG TABLET PO SCH (08:55)
[2017-04-01] MEDS: ARIPiprazole 10 MG TABLET PO SCH (08:56)
[2017-04-01] MEDS: Magnesium Oxide 400 MG TABLET PO SCH ×2 (08:56→20:10)
--- NOTE | 2017-04-01 08:57 | Internal Med Progress Note ---
Date of Encounter: 04/01/17 Time of Encounter: 08:57 - Assessment and plan (1) Congestive heart failure Current Visit: Yes Status: Chronic Assessment and plan: Acute on chronic diastolic CHF exacerbation, the patient mentions that she has history of end-stage heart failure Continue Lasix drip, decreased rate down to 10 mg per hour, strict I's and O's and daily weight Fluid restriction back to 2 L/24h, fluid restriction was increased as creatinine levels were rising, the patient was explained that she is getting alkalotic but prefers to continue diuresis with drip, the option to go back to her regular dose was given She uses 100 mg of Lasix IV 3 times a day at home Echocardiac shows an ejection fraction of 65% Qualifiers: Congestive heart failure type: diastolic Congestive heart failure chronicity: acute on chronic Qualified Code(s): I50.33 - Acute on chronic diastolic (congestive) heart failure (2) Reactive airway disease Current Visit: Yes Status: Acute Assessment and plan: Secondary to possible acute bronchitis, likely bacterial Start prednisone and Rocephin Send chest x-ray Qualifiers: Asthma severity: moderate Asthma persistence: persistent Asthma complication type: with acute exacerbation Qualified Code(s): J45.41 - Moderate persistent asthma with (acute) exacerbation (3) Acquired lymphedema of lower extremity Current Visit: No Status: Chronic (4) HTN (hypertension) Current Visit: Yes Status: Chronic Assessment and plan: Stable Qualifiers: Hypertension type: essential hypertension Qualified Code(s): I10 - Essential (primary) hypertension (5) Hypokalemia Current Visit: No Status: Chronic Assessment and plan: Replete as needed She mentions that she is on the high dose of 100 mEq of potassium twice a day (6) Diabetes mellitus type 1 Current Visit: No Status: Chronic Assessment and plan: Continue insulin Qualifiers: Diabetes mellitus complication status: with kidney complications Diabetes mellitus complication detail: with chronic kidney disease Chronic kidney disease stage: stage 3 (moderate) Qualified Code(s): E10.22 - Type 1 diabetes mellitus with diabetic chronic kidney disease; N18.3 - Chronic kidney disease, stage 3 (moderate) (7) Acute diastolic (congestive) heart failure Current Visit: No Status: Acute (8) History of pulmonary embolism Current Visit: No Status: Chronic Assessment and plan: Continue Xarelto (9) Anemia Current Visit: No Status: Chronic Assessment and plan: Stable Qualifiers: Anemia type: iron deficiency Iron deficiency anemia type: chronic blood loss Qualified Code(s): D50.0 - Iron deficiency anemia secondary to blood loss (chronic) (10) Acute bronchitis Current Visit: Yes Status: Acute Qualifiers: Bronchitis organism: unspecified organism Qualified Code(s): J20.9 - Acute bronchitis, unspecified - Subjective Interval history: Feeling worse, coughing constantly, short of breath, says that her face is a still swollen and is not quite back to her baseline, denies any chest pain, no abdominal pain, no further loose bowel movements, no fevers or chills. - Constitutional Vitals: Temp Pulse Resp BP Pulse Ox 98.7 F 75 17 130/76 99 04/01/17 06:40 04/01/17 06:40 04/01/17 06:40 04/01/17 06:40 04/01/17 06:40 General appearance: Present: A&O X 3, morbidly obese - Head Head exam: Present: atraumatic, normocephalic - Eye Eye exam: Present: PERRL, conjuntiva pink, sclera anicteric Pupils: Present: PERRL - Neck Neck exam general surgery: Present: supple, trachea midline. Absent: lymphadenopathy - Respiratory Respiratory exam: Present: CTAB, rales, wheezes (Diffuse wheezing mostly on the left side). Absent: accessory muscle use, rhonchi - Cardiovascular Cardiovascular exam: Present: RRR, +S1, +S2, tachycardia. Absent: diastolic murmur, gallop, rubs, systolic murmur - GI/Abdominal GI/Abdominal exam: Present: normal bowel sounds, soft, no peritoneal signs. Absent: distended, tenderness - Extremities Exam Extremities exam: Present: pedal edema, warm, radial pulses palpable and symmetrical. Absent: calf tenderness, cyanotic - Neurological Exam Neurological exam: Present: CN II-XII intact, oriented X3, no focal deficits. Absent: pronater drift, facial droop, speech deficit - Skin Skin exam: Present: dry. Absent: intact (+3 pitting edema in both lower extremities with chronic skin changes) Internal Medicine: Result - Labs CBC & Chem 7: 04/01/17 05:08 04/01/17 05:08 Labs: Short CBC 04/01/17 Range/Units 05:08 WBC 5.4 (4.3-11.1) K/mcL Hgb 9.2 L (11.5-15.4) g/dL Hct 30.9 L (35.3-44.9) % Plt Count 194 (140-400) K/mcL BMP 04/01/17 05:08 Sodium 145 Potassium 3.9 Chloride 94 L Carbon Dioxide 41 H* BUN 51 H Creatinine 1.39 H Glucose 201 H Calcium 9.2 Consult Discharge Plan - Plan Referrals: Linsey Ca MD [Primary Care Provider] -
[2017-04-01] MEDS: Insulin LISPRO 300 UNITS/3 ML VIAL SQ SCH ×7 (09:05→20:38)
[2017-04-01] MEDS: Ondansetron 4 MG/2 ML VIAL IVP PRN ×2 (10:19→20:23)
[2017-04-01] MEDS: Budesonide/Formoterol 80/4.5 MDI IH SCH ×2 (10:40→20:18)
[2017-04-01] MEDS: predniSONE 20 MG TABLET PO SCH (12:35)
[2017-04-01] MEDS: cefTRIAXone 1,000 MG in Water for inj. (sterile) 20 ML 10 ML IVP SCH (12:35)
[2017-04-01] MEDS: *HR* HYDROcodone/Acet 10/325 mg TABLET PO PRN ×2 (12:35→20:09)
[2017-04-01] MEDS: *HR* Rivaroxaban 10 MG TABLET PO SCH (17:26)
[2017-04-01] MEDS: Aspirin 81 MG TAB.CHEW PO SCH (20:09)
[2017-04-01] MEDS: traZODone 50 MG TABLET PO SCH (20:10)
[2017-04-02] MEDS: Furosemide 480 MG in D5% in Water 192 ML IVC SCH (00:05)
[2017-04-02] MEDS: *HR* HYDROcodone/Acet 10/325 mg TABLET PO PRN ×3 (02:14→21:19)
[2017-04-02] MEDS: Budesonide/Formoterol 80/4.5 MDI IH SCH ×2 (07:57→20:27)
[2017-04-02] MEDS: ARIPiprazole 10 MG TABLET PO SCH (08:19)
[2017-04-02] MEDS: OXcarbazepine 150 MG TABLET PO SCH ×3 (08:20→21:24)
[2017-04-02] MEDS: Magnesium Oxide 400 MG TABLET PO SCH ×2 (08:20→21:08)
[2017-04-02] MEDS: hydroCHLOROthiazide 25 MG TABLET PO SCH (08:21)
[2017-04-02] MEDS: predniSONE 20 MG TABLET PO SCH (08:21)
[2017-04-02] MEDS: hydrALAZINE 25 MG TABLET PO SCH ×3 (08:22→21:08)
[2017-04-02] MEDS: Insulin LISPRO 300 UNITS/3 ML VIAL SQ SCH ×7 (08:23→21:11)
[2017-04-02] MEDS: cefTRIAXone 1,000 MG in Water for inj. (sterile) 20 ML 10 ML IVP SCH (08:24)
--- NOTE | 2017-04-02 09:37 | Internal Med Progress Note ---
<Andi Flores - Last Filed: 04/02/17 13:33> Date of Encounter: 04/02/17 Time of Encounter: 09:32 - Assessment and plan (1) Congestive heart failure Current Visit: Yes Status: Chronic Assessment and plan: - Acute on chronic diastolic CHF exacerbation - Pt states that she is in NYHA stage IV - Echo shows EF of 65%. Atypical septal motion of unclear etiology. - BNP of 77 on admission, however obesity false low. - Cummulative I/O of -25 L since admission. Has been on lasix ggt and takes 100 mg IV TID at home. - CXR this AM shows bilateral atelectasis. - Appears to be near baseline. Plan - Strict I/Os, daily weight - Fluid restrict to 2L - Turn off lasix ggt this AM, no fluid overload appreciated in extremities, however difficult to determine with body habitus - Start home dose lasix of 100 mg IV TID. She has a nurse who administers for her - Carefully monitor for contraction alkylosis. CO2 of 41 this AM. Will decrease diuretics and monitor. Qualifiers: Congestive heart failure type: diastolic Congestive heart failure chronicity: acute on chronic Qualified Code(s): I50.33 - Acute on chronic diastolic (congestive) heart failure (2) Edema Current Visit: Yes Status: Acute Assessment and plan: - Secondary to known HFpEF - Management as above. - Much improved. Qualifiers: Edema type: unspecified Qualified Code(s): R60.9 - Edema, unspecified (3) Acute exacerbation of chronic obstructive airways disease Current Visit: Yes Status: Acute Assessment and plan: - Secondary to possible bronchitis vs more likely influenza B on respiratory panel this AM. - Has been on rocephin, day 2. Prednisone 40 Qday - Physical exam difficult to determine due to body habitus, mild wheeze appreciated - Tolerating home O2 requirement of 5L Plan - Start tamiflu as her symptoms only appeared 2 days ago and she is within 48 hours. - Will discontinue rocephin and prednisone today as her symptoms are more likely a result of flu. Continue home symbicort. - Droplet precautions. (4) Reactive airway disease Current Visit: Yes Status: Acute Assessment and plan: - Likely secondary to flu B - Management as above. Qualifiers: Asthma severity: moderate Asthma persistence: persistent Asthma complication type: with acute exacerbation Qualified Code(s): J45.41 - Moderate persistent asthma with (acute) exacerbation (5) Urine retention Current Visit: Yes Status: Chronic Assessment and plan: - Chronic urinary retention - Cortez catheter in place as outpatient. Plan - Continue cortez. - Follow up outpatient with urologist. - Possible plan for surpapubic catheter. (6) HTN (hypertension) Current Visit: Yes Status: Chronic Assessment and plan: Has been well controlled. - Continue home meds. Qualifiers: Hypertension type: essential hypertension Qualified Code(s): I10 - Essential (primary) hypertension (7) Morbid obesity Current Visit: Yes Status: Chronic Assessment and plan: BMI of 73 - Likely contributing to decreased respiratory status. - Hx of FELICE Plan - Encouraged weight loss as outpatient. (8) Influenza B Current Visit: Yes Status: Acute Assessment and plan: Respiratory panel this AM positive for flu B - Start tamiflu for 5 days - Continue supportive management and management as above for COPD exacerbation (9) BERTA (acute kidney injury) Current Visit: Yes Status: Acute Assessment and plan: - BUN/ Cr of 51/1.39 this AM - Baseline Cr of 1-1.2 - Likely secondary to contraction alkylosis and third spacing after getting lasix ggt - HCO3 of 41 today Plan - Decrease diuresis to home lasix - Monitor for improvement with labs. - Consider acetazolomide if no improvement. (10) Hyperglycemia due to type 1 diabetes mellitus Current Visit: No Status: Chronic Assessment and plan: -BS have been elevated since admission, possible secondary to infection and prednisone use. - BS of 264 most recently. - A1c of 7.2% on 03/27/17 Plan - Continue Lispro 50 units TID - SSI - Will continue to monitor after stopping steroid treatment. (11) DVT prophylaxis Current Visit: Yes Status: Acute Assessment and plan: - Xarelto 20 mg QHS - Time Spent With Patient 25 - 35 minutes - Subjective Interval history: Patient was seen and examined at bedside this morning. He states that overall, she is doing much better in regards to her breathing status. She does still admit to a productive cough with thick yellow sputum. We did have a long discussion about the etiology of her fluid overload and she states that she has been seen at [facility] for the past 3 years and was told she had stage IV congestive heart failure for which she takes Lasix IV 100 mg 3 times a day. Denies any known history of liver or kidney disease. She states that her swelling is also much improved today and "she can see her feet again ". She denies any symptoms of chest pain, fevers, chills. Admits to some abdominal pain however this is chronic. He also states that she has a chronic indwelling Cortez catheter however it does leak. She is spoke with Dr. Jenkins from urology and he states that he wants to do a suprapubic catheter at some point but is uncomfortable doing at this facility. - Constitutional Vitals: Temp Pulse Resp BP Pulse Ox 98.3 F 73 16 143/82 98 04/02/17 07:56 04/02/17 07:56 04/02/17 07:59 04/02/17 07:56 04/02/17 08:58 General appearance: Present: A&O X 3, morbidly obese Exam: Gen. : Vitals noted. No acute distress. AAOx3. Morbidly obese sitting up in bed. Physical exam limited from body habitus HEENT: PERRL/EOMI, oropharynx clear, Normocephalic, atraumatic Cardiac: RRR, no murmur, +S1/S2 Pulmonary: No rales or rhonchi, equal chest expansion. Mild wheeze in upper lobes. Abdomen: soft, nontender, BS noted, no guarding MSK: ROM intact, no joint swelling noted Extremities: no BLE edema, nontender calf, no cyanosis or clubbing. Chronic venous stasis Neuro: A&Ox3, moves all extremities, no focal deficits Psych: Appropriate mood and behavior Internal Medicine: Result - Labs CBC & Chem 7: 04/01/17 05:08 04/01/17 05:08 - Impressions Impressions Chest X-Ray 04/01/17 08:51 IMPRESSION: Low lung volumes with mild bibasilar opacities, most likely atelectasis. D/ / Yoav Zarate MD / Yoav Zarate MD Interpreting Provider: Yoav Zarate MD Consult Discharge Plan - Plan Referrals: Linsey Ca MD [Primary Care Provider] - <Serge To - Last Filed: 04/02/17 16:47> Date of Encounter: 04/02/17 - Assessment and plan (1) Acute and chronic respiratory failure with hypoxia Current Visit: Yes Status: Acute Assessment and plan: Has been weaning back to baseline of 5 liters. (2) CHF exacerbation Current Visit: Yes Status: Acute Assessment and plan: Taken on Lasix drip today. Resume home Lasix dose. Qualifiers: Congestive heart failure type: diastolic Qualified Code(s): I50.33 - Acute on chronic diastolic (congestive) heart failure (3) Influenza B Current Visit: Yes Status: Acute (4) Morbid obesity Current Visit: Yes Status: Chronic (5) HTN (hypertension) Current Visit: Yes Status: Chronic Qualifiers: Hypertension type: essential hypertension Qualified Code(s): I10 - Essential (primary) hypertension (6) Chronic respiratory failure with hypoxia and hypercapnia Current Visit: No Status: Chronic (7) Diabetes Current Visit: No Status: Chronic Qualifiers: Diabetes mellitus type: type 1 Diabetes mellitus complication status: with kidney complications Diabetes mellitus complication detail: with chronic kidney disease Chronic kidney disease stage: stage 3 (moderate) Qualified Code(s): E10.22 - Type 1 diabetes mellitus with diabetic chronic kidney disease ; N18.3 - Chronic kidney disease, stage 3 (moderate); N18.3 - Chronic kidney disease, stage 3 (moderate) (8) Obstructive sleep apnea Current Visit: No Status: Chronic - Constitutional Vitals: Temp Pulse Resp BP Pulse Ox 96.5 F L 76 14 130/75 100 04/02/17 15:23 04/02/17 15:23 04/02/17 15:23 04/02/17 15:23 04/02/17 15:23 Internal Medicine: Result - Labs CBC & Chem 7: 04/01/17 05:08 04/01/17 05:08 - Attending Attestation I examined this patient and my medical decision-making was reviewed with the Resident Physician on 04/02/17. I agree with the documented findings, disposition and treatment plan as described except to the extent set forth below. Ms Hameed is currently admitted for acute exacerbation of chronic diastolic heart failure. She is now influenza B positive. She remains moderate to high risk due to potential for worsening clinical and respiratory status. Ms Hameed is sitting up in chair. She is beginning to feel at baseline. No fever. Has felt achy and had nausea and scratchy throat since about Saturday. Taken off Lasix drip today. Exam Alert. Comfortable Mucus membranes dry Heart reg and distant. Lungs diminished on R. Abd soft I/P 1. CHF exacerbation 2. Influenza B - will start Tamiflu as she has been symptomatic only since Saturday. Further diagnoses and plan as above.
[2017-04-02 10:12] LABS: Adenovirus Not Detected (Not Detect); Bordetella Pertussis Not Detected (Not Detect); Coronavirus 229E Not Detected (Not Detect); Coronavirus HKU1 Not Detected (Not Detect); Coronavirus NL63 Not Detected (Not Detect); Coronavirus OC43 Not Detected (Not Detect); Human Metapneumovirus Not Detected (Not Detect); Human Rhinovirus/Enterovirus Not Detected (Not Detect); Influenza A Subtype 2009 H1 Not Detected (Not Detect); Influenza A Untypeable Not Detected (Not Detect); Influenza B ***DETECTED*** (Not Detect); Parainfluenza Virus 1 Not Detected (Not Detect); Parainfluenza Virus 2 Not Detected (Not Detect); Parainfluenza Virus 3 Not Detected (Not Detect); Parainfluenza Virus 4 Not Detected (Not Detect); Respiratory Syncytial Virus Not Detected (Not Detect)
[2017-04-02 10:13] LABS: Chlamydophila pneumoniae Not Detected (Not Detect); Mycoplasma pneumoniae Not Detected (Not Detect)
[2017-04-02] MEDS: Ondansetron 4 MG/2 ML VIAL IVP PRN (12:12)
[2017-04-02] MEDS: Furosemide 100 MG/10 ML VIAL IVP SCH ×2 (12:12→18:10)
[2017-04-02] MEDS: *HR* Rivaroxaban 10 MG TABLET PO SCH (18:09)
[2017-04-02] MEDS: Aspirin 81 MG TAB.CHEW PO SCH (21:08)
[2017-04-03] MEDS: traZODone 50 MG TABLET PO SCH
[2017-04-03 03:46] LABS: Hematocrit 31.1 % (35.3-44.9); Hemoglobin 9.1 g/dL (11.5-15.4); Mean Corpuscular HGB Conc 29.3 g/dL (31.6-35.5); Mean Corpuscular Hemoglobin 26.1 pg (28.0-33.3); Mean Corpuscular Volume 89.4 fL (83.0-100.0); Mean Platelet Volume 10.7 fL (9.4-12.4); Platelet Count 202 K/mcL (140-400); Red Blood Count 3.48 M/mcL (3.82-4.97); Red Cell Distribution Width 18.8 % (11.5-14.5)
[2017-04-03 03:59] LABS: Magnesium 2.6 mg/dL (1.6-2.6)
[2017-04-03] MEDS: Ondansetron 4 MG/2 ML VIAL IVP PRN ×2 (06:44→16:52)
[2017-04-03] MEDS: Budesonide/Formoterol 80/4.5 MDI IH SCH (07:49)
[2017-04-03] MEDS: hydrALAZINE 25 MG TABLET PO SCH ×2 (09:20→16:53)
[2017-04-03] MEDS: ARIPiprazole 10 MG TABLET PO SCH (09:23)
[2017-04-03] MEDS: OXcarbazepine 150 MG TABLET PO SCH ×2 (09:24→17:01)
[2017-04-03] MEDS: hydroCHLOROthiazide 25 MG TABLET PO SCH (09:24)
[2017-04-03] MEDS: Magnesium Oxide 400 MG TABLET PO SCH (09:25)
[2017-04-03] MEDS: Furosemide 100 MG/10 ML VIAL IVP SCH ×3 (09:26→16:51)
[2017-04-03] MEDS: Insulin LISPRO 300 UNITS/3 ML VIAL SQ SCH ×6 (09:27→16:57)
[2017-04-03 10:13] LABS: Calcium 9.1 mg/dL (8.6-10.3); Potassium 4.2 mEq/L (3.5-5.1)
--- NOTE | 2017-04-03 11:34 | Discharge Summary ---
<DeshaunAndi short - Last Filed: 04/03/17 15:28> Date of Encounter: 04/03/17 Time of Encounter: 11:34 - Discharge Diagnosis (1) Congestive heart failure Priority: Primary Status: Chronic Qualifiers: Congestive heart failure type: diastolic Congestive heart failure chronicity: acute on chronic Qualified Code(s): I50.33 - Acute on chronic diastolic (congestive) heart failure (2) Edema Priority: Secondary Status: Acute Qualifiers: Edema type: unspecified Qualified Code(s): R60.9 - Edema, unspecified (3) Acute exacerbation of chronic obstructive airways disease Priority: Secondary Status: Acute (4) Reactive airway disease Priority: Secondary Status: Acute Qualifiers: Asthma severity: moderate Asthma persistence: persistent Asthma complication type: with acute exacerbation Qualified Code(s): J45.41 - Moderate persistent asthma with (acute) exacerbation (5) Urine retention Priority: Secondary Status: Chronic (6) HTN (hypertension) Priority: Secondary Status: Chronic Qualifiers: Hypertension type: essential hypertension Qualified Code(s): I10 - Essential (primary) hypertension (7) Morbid obesity Priority: Secondary Status: Chronic (8) Influenza B Priority: Secondary Status: Acute (9) BERTA (acute kidney injury) Priority: Secondary Status: Acute (10) Hyperglycemia due to type 1 diabetes mellitus Priority: Secondary Status: Chronic (11) DVT prophylaxis Priority: Secondary Status: Acute - Discharge Medications Prescriptions: Furosemide [Lasix] 100 mg IV TID #42 vial Oseltamivir [Tamiflu] 75 mg PO BID #7 capsule Home Medications: Aripiprazole [Abilify] 20 mg PO DAILY 01/20/16 [History] Aspirin 81 mg PO HS 01/20/16 [History] Carvedilol 12.5 mg PO Q12H 01/20/16 [History] Docusate [Colace] 100 mg PO BID 01/20/16 [History] HYDROcodone/Acet 10/325 mg [[place]imb[place] 10-325 mg] 1 tab PO Q6H PRN 01/20/16 [History] Nitroglycerin [Nitrostat] 0.4 mg SL Q5M PRN 01/20/16 [History] Nystatin POWDER [Nystop] 1 appl TP BID PRN 01/20/16 [History] OXcarbazepine [Oxcarbazepine] 600 mg PO 1500,2100 01/20/16 [History] Ondansetron HCl 4 mg PO Q8H PRN 01/20/16 [History] Potassium Chloride [K-Tab ER] 100 meq PO BIDWM 01/20/16 [History] Rivaroxaban [Xarelto] 20 mg PO QPM 01/20/16 [History] hydrALAZINE [HydrALAZINE] 25 mg PO TID 01/20/16 [History] Atorvastatin Calcium [Lipitor] 80 mg PO HS 08/05/16 [History] Benztropine [Cogentin] 1 mg PO HS 08/05/16 [History] Esomeprazole Magnesium [Nexium] 20 mg PO QAM 08/05/16 [History] Ferrous Gluconate 324 mg PO DAILY 08/05/16 [History] Insulin Regular U-500 [HumuLIN R U-500] 225 unit SQ QPM 08/05/16 [History] Insulin Regular U-500 [HumuLIN R U-500] 350 unit SQ 1200 08/05/16 [History] Insulin Regular U-500 [HumuLIN R U-500] 450 units SQ QAM 08/05/16 [History] Isosorbide DInitrate [Isosorbide Dinitrate] 20 mg PO TID 08/05/16 [History] Spironolactone [Aldactone] 100 mg PO DAILY 08/05/16 [History] Trazodone HCl 200 mg PO HS 08/05/16 [History] Albuterol Sulfate [Albuterol Inhaler] 2 puff IH Q4HR PRN #1 [id number] 08/17/16 [Rx] OXcarbazepine [Trileptal] 150 mg PO QAM 01/30/17 [History] Oxybutynin [Ditropan] 15 mg PO BID 01/30/17 [History] Budesonide/Formoterol 80/4.5 [Symbicort 80/4.5] 1 puff IH BID 03/27/17 [History ] Dicyclomine [Bentyl] 20 mg PO QID 03/27/17 [History] Exenatide Microspheres [Bydureon Pen] 2 mg SQ QWEEK 03/27/17 [History] Guaifenesin [Mucinex] 600 mg PO BID 03/27/17 [History] Magnesium Oxide 250 mg PO BID 03/27/17 [History] Pentoxifylline [TRENtal] 400 mg PO BID 03/27/17 [History] hydroCHLOROthiazide [Hydrochlorothiazide] 50 mg PO DAILY 03/27/17 [History] Furosemide [Lasix] 100 mg IV TID #42 vial 04/03/17 [Rx] Oseltamivir [Tamiflu] 75 mg PO BID #7 capsule 04/03/17 [Rx] Allergies/Adverse Reactions: 3 Allergy/AdvReac Type Severity Reaction Status Date / Time adhesive tape Allergy Mild skin Verified 03/26/17 21:50 irritation Amoxicillin [From Augmentin] Allergy Hives Verified 03/26/17 21:50 clavulanic acid Allergy Hives Verified 03/26/17 21:50 [From Augmentin] codeine Allergy Swelling Verified 03/26/17 21:50 of Lip/Tongue/Throat levofloxacin [From Levaquin] Allergy Hives Verified 03/26/17 21:50 silver sulfadiazine Allergy Itching Verified 03/26/17 21:50 Sulfa (Sulfonamide Allergy Hives Verified 03/26/17 21:50 Antibiotics) tramadol [From Ultram] Allergy Swelling Verified 03/26/17 21:50 of Lip/Tongue/Throat Date of admission: 03/28/17 13:16 Primary care physician: Linsey Ca MD Discharging clinician: Andi Flores Anticipated date of discharge: 04/03/17 - Patient Status Disposition: Home, Self-Care Condition: Good Overall status at discharge: patient is back to baseline - Discharge Instructions Instructions: Heart Failure (DC) Follow Up With: Linsey Ca MD [Primary Care Provider] - Additional Instructions: Please follow up with her primary care physician within one week. Take all your most dictations as prescribed. Return to the emergency department if her symptoms should worsen or return. - Diet and Activity Activity: increase activity as tolerated, resume usual activities as tolerated, wear oxygen at all times Diet: diabetic diet, low salt diet Hospital course: Ms. Hameed is a 46 year old female with past medical history of type 1 diabetes , morbid obesity, heart failure with preserved ejection fraction presented to the emergency department with the chief complaint of shortness of breath, 60 pound weight gain in the last 2 weeks after being discharged from [facility]. Denied symptoms of fevers, chills, cough but admitted to orthopnea as well as lower extremity edema. He is hospitalist service for further management of congestive heart failure exacerbation. Vital signs on admission were unremarkable, she uses 5 L of oxygen at home. Lab results significant for mild hypokalemia at 3.4, glucose of 298. Chest x-ray showed no acute disease. Echocardiogram showed ejection fraction 65%. During course Hospital stay, patient gradually improved. She continues to tolerate her home dose of oxygen without any difficulties. He states that her breathing is much improved as well as her edema after being put on Lasix drip. She cumulatively lost 25 L of fluid since admission. During admission, she also tested positive for influenza B and was treated appropriately with Tamiflu and will be sent home with prescription for a total of 5 days. Dewitt catheter was changed due to leak, which is chronic for urinary retention. Day of discharge, patient is medically stable and willing to go home at this time. She could follow up with primary care physician within one week of discharge for medical management of her chronic diseases. Patient states that she is willing to go home at this time is medically able to do so. - Time Spent with Patient Total time spent providing and/or coordinating discharge services: - Constitutional Vitals: Temp Pulse Resp BP Pulse Ox 97.8 F 73 16 144/92 98 04/03/17 11:23 04/03/17 11:23 04/03/17 11:23 04/03/17 11:23 04/03/17 11:23 General appearance: Present: A&O X 3, morbidly obese Exam: Gen.: Vitals noted. No acute distress. AAOx3. morbidly obese. HEENT: PERRL/EOMI, oropharynx clear, Normocephalic, atraumatic Cardiac: RRR, no murmur, +S1/S2 Pulmonary: Diminished breath sounds on right. no wheezes, rales or rhonchi, equal chest expansion Abdomen: soft, nontender, BS noted, no guarding MSK: ROM intact, no joint swelling noted Extremities: no BLE edema appreciated, nontender calf, no cyanosis or clubbing Neuro: A&Ox3, moves all extremities, no focal deficits Psych: Appropriate mood and behavior <Serge To - Last Filed: 04/03/17 19:34> Date of Encounter: 04/03/17 - Discharge Diagnosis (1) Acute and chronic respiratory failure with hypoxia Priority: Primary Status: Acute (2) CHF exacerbation Priority: Primary Status: Acute Qualifiers: Congestive heart failure type: diastolic Qualified Code(s): I50.33 - Acute on chronic diastolic (congestive) heart failure (3) Influenza B Status: Acute (4) Morbid obesity Status: Chronic (5) HTN (hypertension) Status: Chronic Qualifiers: Hypertension type: essential hypertension Qualified Code(s): I10 - Essential (primary) hypertension (6) Chronic respiratory failure with hypoxia and hypercapnia Priority: Secondary Status: Chronic (7) Diabetes Priority: Secondary Status: Chronic Qualifiers: Diabetes mellitus type: type 1 Diabetes mellitus complication status: with kidney complications Diabetes mellitus complication detail: with chronic kidney disease Chronic kidney disease stage: stage 3 (moderate) Qualified Code(s): E10.22 - Type 1 diabetes mellitus with diabetic chronic kidney disease ; N18.3 - Chronic kidney disease, stage 3 (moderate); N18.3 - Chronic kidney disease, stage 3 (moderate) (8) Obstructive sleep apnea Priority: Secondary Status: Chronic Date of admission: 03/28/17 13:16 Primary care physician: Linsey Ca MD Hospital course: Ms. Hameed is a 46 year old female - Time Spent with Patient Total time spent providing and/or coordinating discharge services: 38min - Constitutional Vitals: Temp Pulse Resp BP Pulse Ox 98 F 68 16 143/81 99 04/03/17 15:36 04/03/17 15:36 04/03/17 15:36 04/03/17 15:36 04/03/17 15:36 - Attending Attestation I examined this patient and my medical decision-making was reviewed with the Resident Physician on 04/03/17. I agree with the documented findings, disposition and treatment plan as described except to the extent set forth below. Ms Hameed has been admitted for acute exacerbation chronic diastolic CHF. She is at baseline at this time. She is afebrile with stable vitals and ready for discharge home. Exam Alert. Comfortable Heart reg No wheeze Plan d/c today.
[2017-04-03 15:38] VITALS: BP 143/81
--- NOTE | 2017-04-03 15:52 | Physician Discharge Referral ---
<Andi Flores - Last Filed: 04/03/17 15:50> Home Health/Hosp Referral Info Transfer to: Home Health Provider in Charge Post Discharge: PCP - Diagnosis (1) Congestive heart failure Priority: Primary Status: Chronic (2) Edema Priority: Secondary Status: Acute (3) Acute exacerbation of chronic obstructive airways disease Priority: Secondary Status: Acute (4) Reactive airway disease Priority: Secondary Status: Acute (5) Urine retention Priority: Secondary Status: Chronic (6) HTN (hypertension) Priority: Secondary Status: Chronic (7) Morbid obesity Priority: Secondary Status: Chronic (8) Influenza B Priority: Secondary Status: Acute (9) BERTA (acute kidney injury) Priority: Secondary Status: Acute (10) Hyperglycemia due to type 1 diabetes mellitus Priority: Secondary Status: Chronic (11) DVT prophylaxis Priority: Secondary Status: Acute - Respiratory Orders Oxygen / L per min (5) Smoking Cessation: Smoking cessation has been advised. For more information, call the [employer] Quit Line at 8-506-WKNU-NOW. - Diet/Nutrition Diet/Nutrition Orders: Cardiac, No Concentrated Sweets - Services Needed Following services are medically necessary services: Home Health Aide - Transfer Medications Prescriptions: Furosemide [Lasix] 100 mg IV TID #42 vial Oseltamivir [Tamiflu] 75 mg PO BID #7 capsule Home Medications: Aripiprazole [Abilify] 20 mg PO DAILY 01/20/16 [History] Aspirin 81 mg PO HS 01/20/16 [History] Carvedilol 12.5 mg PO Q12H 01/20/16 [History] Docusate [Colace] 100 mg PO BID 01/20/16 [History] HYDROcodone/Acet 10/325 mg [[place] 10-325 mg] 1 tab PO Q6H PRN 01/20/16 [History] Nitroglycerin [Nitrostat] 0.4 mg SL Q5M PRN 01/20/16 [History] Nystatin POWDER [Nystop] 1 appl TP BID PRN 01/20/16 [History] OXcarbazepine [Oxcarbazepine] 600 mg PO 1500,2100 01/20/16 [History] Ondansetron HCl 4 mg PO Q8H PRN 01/20/16 [History] Potassium Chloride [K-Tab ER] 100 meq PO BIDWM 11/04/16 [History] Rivaroxaban [Xarelto] 20 mg PO QPM 01/20/16 [History] hydrALAZINE [HydrALAZINE] 25 mg PO TID 01/20/16 [History] Atorvastatin Calcium [Lipitor] 80 mg PO HS 08/05/16 [History] Benztropine [Cogentin] 1 mg PO HS 08/05/16 [History] Esomeprazole Magnesium [Nexium] 20 mg PO QAM 08/05/16 [History] Ferrous Gluconate 324 mg PO DAILY 08/05/16 [History] Insulin Regular U-500 [HumuLIN R U-500] 225 unit SQ QPM 08/05/16 [History] Insulin Regular U-500 [HumuLIN R U-500] 350 unit SQ 1200 08/05/16 [History] Insulin Regular U-500 [HumuLIN R U-500] 450 units SQ QAM 08/05/16 [History] Isosorbide DInitrate [Isosorbide Dinitrate] 20 mg PO TID 08/05/16 [History] Spironolactone [Aldactone] 100 mg PO DAILY 08/05/16 [History] Trazodone HCl 200 mg PO HS 08/05/16 [History] Albuterol Sulfate [Albuterol Inhaler] 2 puff IH Q4HR PRN #1 hfa.aer.ad 08/17/16 [Rx] OXcarbazepine [Trileptal] 150 mg PO QAM 01/30/17 [History] Oxybutynin [Ditropan] 15 mg PO BID 01/30/17 [History] Budesonide/Formoterol 80/4.5 [Symbicort 80/4.5] 1 puff IH BID 03/27/17 [History ] Dicyclomine [Bentyl] 20 mg PO QID 03/27/17 [History] Exenatide Microspheres [Bydureon Pen] 2 mg SQ QWEEK 03/27/17 [History] Guaifenesin [Mucinex] 600 mg PO BID 03/27/17 [History] Magnesium Oxide 250 mg PO BID 03/27/17 [History] Pentoxifylline [TRENtal] 400 mg PO BID 03/27/17 [History] hydroCHLOROthiazide [Hydrochlorothiazide] 50 mg PO DAILY 03/27/17 [History] Furosemide [Lasix] 100 mg IV TID #42 vial 04/03/17 [Rx] Oseltamivir [Tamiflu] 75 mg PO BID #7 capsule 04/03/17 [Rx] Allergies/Adverse Reactions: 3 Allergy/AdvReac Type Severity Reaction Status Date / Time adhesive tape Allergy Mild skin Verified 03/26/17 21:50 irritation Amoxicillin [From Augmentin] Allergy Hives Verified 03/26/17 21:50 clavulanic acid Allergy Hives Verified 03/26/17 21:50 [From Augmentin] codeine Allergy Swelling Verified 03/26/17 21:50 of Lip/Tongue/Throat levofloxacin [From Levaquin] Allergy Hives Verified 03/26/17 21:50 silver sulfadiazine Allergy Itching Verified 03/26/17 21:50 Sulfa (Sulfonamide Allergy Hives Verified 03/26/17 21:50 Antibiotics) tramadol [From Ultram] Allergy Swelling Verified 03/26/17 21:50 of Lip/Tongue/Throat Certification: Further, I certify that my clinical findings support that this patient is homebound (i.e. absences from home require considerable and taxing effort and are for medical reasons or mandaeism services or infrequently or short duration when for other reasons) because: Homebound Reason: Leaving home requires considerable and taxing effort due to condition Attestation: My signature below is to certify that this patient is under my care and that I, or nurse practitioner, or a physician's pastry assistant working with me, has a face-to -face encounter with this patient. <Serge To - Last Filed: 04/03/17 16:53> - Diagnosis (1) Acute and chronic respiratory failure with hypoxia Status: Acute (2) CHF exacerbation Status: Acute (3) Influenza B Status: Acute (4) Morbid obesity Status: Chronic (5) HTN (hypertension) Status: Chronic (6) Chronic respiratory failure with hypoxia and hypercapnia Status: Chronic (7) Diabetes Status: Chronic (8) Obstructive sleep apnea Status: Chronic - Respiratory Orders Smoking Cessation: Smoking cessation has been advised. For more information, call the [place] [employer] Quit Line at 6-661-THDP-NOW. Certification: Further, I certify that my clinical findings support that this patient is homebound (i.e. absences from home require considerable and taxing effort and are for medical reasons or mandaeism services or infrequently or short duration when for other reasons) because: Attestation: My signature below is to certify that this patient is under my care and that I, or nurse practitioner, or a physician's pastry assistant working with me, has a face-to -face encounter with this patient.
[2017-04-03] MEDS: *HR* Rivaroxaban 10 MG TABLET PO SCH (16:53)
== END 2017-04-03 17:48 | disposition home or self-care (01) | DRG 291 ==
LOC: 2ANU 20:43 → EMEROO 20:43 → SUATTDRO 03-27 05:20 → 2ANU 03-27 05:45 → 2NENU 03-27 15:56 → SUATTDRO 03-28 13:16
PROVIDERS: ADMIT Internal Medicine; ATTEND Internal Medicine